=== PATIENT | male | born 1955 | race Caucasian/White ===

== ENCOUNTER 2021-03-04 11:58 | Outpatient (REF) | payer SELFPAY ==
[2021-03-04 14:11] LABS: Hematocrit 41.5 % (42.0-52.0); Hemoglobin 14.2 g/dl (14.0-18.0); Mean Corpuscular HGB Conc 34.2 g/dl (31.0-36.0); Mean Corpuscular Hemoglobin 34.3 pg (27.0-33.0); Mean Corpuscular Volume 100.2 fL (80.0-98.0); Mean Platelet Volume 11.5 fL (9.4-12.4); Platelet Count 134 X10*3/uL (160-400); Red Blood Count 4.14 X10*6/uL (4.60-5.80); White Blood Count 7.9 X10*3/uL (4.8-10.8)
[2021-03-04 14:20] LABS: INTERNATIONAL NORM RATIO 1.2 (0.9-1.1); Prothrombin Time 13.4 SEC (9.9-13.0)
[2021-03-04 14:22] LABS: Partial Thromboplastin Time 33.2 SEC (24.1-38.0)
[2021-03-04 14:27] LABS: Alanine Aminotransferase 25 U/L (0-40); Alkaline Phosphatase 97 U/L (39-117); Aspartate Amino Transferase 64 U/L (5-37); Bilirubin Direct 1.2 mg/dL (0.0-0.5); Cholesterol 94 mg/dL; Estimated Glomerular Filt Rate > 60; Glucose Random 100 mg/dL (60-115); HDL Cholesterol 29 mg/dL; LDL Cholesterol Calculated 53 mg/dl; Triglycerides 64 mg/dL
[2021-03-04 14:47] LABS: Erythrocyte Sedimentation Rate 2 MM/HR (0-15)
[2021-03-04 15:00] LABS: Anion Gap 13 (12-20); Blood Urea Nitrogen 3 mg/dL (9-16); Carbon Dioxide 28 mmol/L (22-29); Chloride 98 mmol/L (96-108); Potassium 2.9 mmol/L (3.3-5.1); Sodium 136 mmol/L (135-145); Total Protein 5.8 g/dL (6.5-8.0)
== END 2021-03-04 11:59 | disposition home or self-care (01) ==
LOC: HO.HMGCLDS 11:58
PROVIDERS: Visit Provider Internal Medicine
DX: K72.90 Hepatic failure, unspecified without coma (principal)
CPT/HCPCS: 36415; 80048; 80061; 80076; 85027; 85610; 85652; 85730

== ENCOUNTER 2021-03-09 14:03 | Inpatient (IN) | payer OTHER, SELFPAY ==
--- NOTE | ~2021-03-09 | CT_ITS ---
EXAMINATION: CT ABDOMEN AND PELVIS WITH CONTRAST CLINICAL INFORMATION: Alcoholic hepatitis with ascites. Question portal vein thrombosis. COMPARISON: None TECHNIQUE: Multidetector volumetric images were obtained from the superior aspect of the liver through the pubic symphysis following administration 85 mL of Omnipaque 350 intravenous contrast. Sagittal and coronal reformatted images were obtained on the technologist's workstation. Oral contrast: No This CT examination was performed using dose optimization techniques as appropriate, variously including the following: *Automated exposure control *Adjustment of mA and/or kV according to patient size (this includes techniques or standardized protocols for targeted exams where dose is matched to indication/reason for exam; i.e. extremities or head) *Use of iterative reconstruction technique DLP: 499 mGy-cm FINDINGS: LUNG BASES: Streaky areas of bibasilar consolidation with air bronchograms, more likely atelectasis than pneumonia. Mild cardiomegaly. Coronary artery calcifications. LIVER, GALLBLADDER, AND BILIARY TREE: The liver is normal in size, shape, and attenuation. No focal hepatic lesion or biliary ductal dilatation is present. The gallbladder is unremarkable with no evidence of radiopaque gallstones, gallbladder wall thickening, or obvious pericholecystic inflammatory changes. Portal veins enhance normally. PANCREAS: Unremarkable. SPLEEN: Unremarkable. ADRENAL GLANDS: Unremarkable. KIDNEYS AND URETERS: The kidneys are normal in size, shape, and attenuation. No hydronephrosis, hydroureter, or calculi seen. No perinephric stranding. BLADDER: Unremarkable. GASTROINTESTINAL TRACT: Stomach and small bowel are nondilated. Normal appendix. Scattered colonic diverticulosis. Moderate stool volume. Tortuous colon. ABDOMINAL WALL: Anasarca. LYMPH NODES: Normal. VASCULAR: Portal veins enhance normally. There is a recanalized paraumbilical vein. There are gastric and splenic varices. There are varices in the anterior abdominal wall. Moderate volume of ascites is seen in all 4 quadrants of the abdomen and dependently in the pelvis. PELVIC VISCERA: The prostate and seminal vesicles are unremarkable. OSSEOUS STRUCTURES: Multilevel degenerative changes of the spine. No acute or suspicious osseous abnormality. Circumferential calcified atherosclerotic changes of the aorta. CT/CT abdomen pelvis w con IMPRESSION: Moderate volume of ascites. Anasarca. Extensive varices suggest portal hypertension. Portal veins enhance normally.
[2021-03-09 14:24] VITALS: BP 147/86; PULSE 95; RESP 20; TEMP 36.8; O2SAT 98; BMI 22.3
[2021-03-09 16:15] LABS: MANUAL DIFF FLAG NO
[2021-03-09 16:18] LABS: Basophils Absolute Auto 0.1 X10*3/uL (0.0-0.2); Basophils Percent Auto 0.6 % (0-2); Eosinophils Absolute Auto 0.1 X10*3/uL (0.0-0.4); Eosinophils Percent Auto 0.9 % (0-4); Hemoglobin 13.8 g/dl (14.0-18.0); Imm Gran Abs Auto 0.02 X10*3/uL (0.00-0.03); Imm Gran Pct Auto 0.3 % (0.0-0.4); Lymphocytes Absolute Auto 1.1 X10*3/uL (1.2-4.9); Lymphocytes Percent Auto 13.9 % (20-40); Mean Corpuscular HGB Conc 33.7 g/dl (31.0-36.0); Mean Corpuscular Hemoglobin 34.5 pg (27.0-33.0); Mean Corpuscular Volume 102.5 fL (80.0-98.0); Monocytes Absolute Auto 0.7 X10*3/uL (0.1-1.2); Neutrophils Percent Auto 75.3 % (45-73); Platelet Count 146 X10*3/uL (160-400); Red Cell Distribution Width 13.2 % (11.0-16.0)
[2021-03-09 16:31] LABS: Alanine Aminotransferase 24 U/L (0-40); Albumin Level 2.9 g/dL (3.5-5.0); Alkaline Phosphatase 96 U/L (39-117); Anion Gap 12 (12-20); Aspartate Amino Transferase 48 U/L (5-37); Blood Urea Nitrogen 5 mg/dL (9-16); Calcium 8.4 mg/dL (8.4-10.2); Carbon Dioxide 30 mmol/L (22-29); Chloride 102 mmol/L (96-108); Creatinine Clr Calc Pharmacy 118.1; Estimated Glomerular Filt Rate > 60; Glucose Random 130 mg/dL (60-115); Lipase 30 U/L (8-78); Potassium 4.8 mmol/L (3.3-5.1); Sodium 139 mmol/L (135-145); Total Protein 5.8 g/dL (6.5-8.0)
--- NOTE | 2021-03-09 19:20 | ED.ABDPAIN ---
HPI - Abdominal Pain General Chief Complaint: Abdominal Pain Stated Complaint: abd pain swelling Time Seen by Provider: 03/09/21 16:59 Source: patient Mode of arrival: ambulatory Limitations: no limitations History of Present Illness HPI narrative: Patient is 65 years old with history of alcohol use, hypertension not taking any medication smoker chronic alcoholic for last 2 months been drinking heavy drinking bicardi for 2 weeks patient noticed abdominal distention with slight discomfort and constipation no nausea no vomiting no diarrhea no fever no chills no shortness of breath patient had last drink 1 week ago. Also noticed bright red blood when moved bowel no vomiting of blood no melena. No confusion mentation is fine, was seen by MD at [facility] today who sent him here for further evaluation for new onset of ascites in background of alcoholic cirrhosis Related Data Home Medications Medication Instructions Recorded Confirmed No Known Home Meds 03/04/21 03/09/21 Allergies Allergy/AdvReac Type Severity Reaction Status Date / Time No Known Allergies Allergy Verified 03/04/21 11:30 [No Known Allergies*] Review of Systems Review of Systems Yes all other systems are reviewed and are negative Physical Exam Vital Signs: Vital Signs: Last Vital Signs Temp 98.2 F 03/09/21 14:24 Pulse 90 03/09/21 22:50 Resp 14 03/09/21 22:26 BP 128/81 03/09/21 22:50 Pulse Ox 98 03/09/21 22:50 Body Mass Index 22.3 Appearance: Alert. Oriented X3. No acute distress. Eyes: No pallor or icterus ENT: Pharynx normal. Oral Mucosa moist Neck: Normal inspection. Neck supple. CVS: Normal heart rate and rhythm. Pulses normal. Respiratory: No respiratory distress. Equal air entry bilateral, no wheezing/rales/rhonchi Abdomen: Distended abdomen, mild diffuse tenderness no rebound tenderness or guarding Bowel sounds are present, no mass palpable, no CVA tenderness Skin: Skin warm and dry. Normal skin color. Normal skin turgor. Extremities: No lower extremity edema. No calf tenderness Neuro: Oriented X 3. No motor deficit. No hepatic flaps Procedures Paracentesis Time Out Performed: Yes Indication: Ascites Procedure: therapeutic paracentesis Location: RLQ Local Anesthetic: lidocaine 2% Amount of anesthesia used (mL): 1 Bedside Ultrasound Used: yes, Ascites confirmed and location marked Preparation: sterile prep and drape Amount of fluid obtained (mL): 3,000 Fluid: clear Size of Needle Used: 7 MDM - Abdominal Pain MDM Narrative Medical decision making narrative: Patient alcoholic came with acute onset of ascites negative for portal vein thrombosis paracentesis done on 3 L of fluid drained negative for SBP will admit patient for further evaluation Lab Data Attestation: I reviewed the patient's lab results. Result diagrams: 03/09/21 16:08 03/09/21 16:08 Labs: Lab Results 03/09/21 03/09/21 03/09/21 Range/Units 16:08 16:08 20:35 WBC 8.0 (4.8-10.8) X10*3/uL RBC 4.00 L (4.60-5.80) X10*6/uL Hgb 13.8 L (14.0-18.0) g/dl Hct 41.0 L (42.0-52.0) % MCV 102.5 H (80.0-98.0) fL MCH 34.5 H (27.0-33.0) pg MCHC 33.7 (31.0-36.0) g/dl RDW 13.2 (11.0-16.0) % Plt Count 146 L (160-400) X10*3/uL MPV 11.0 (9.4-12.4) fL Immature Gran % (Auto) 0.3 (0.0-0.4) % Neut % (Auto) 75.3 H (45-73) % Lymph % (Auto) 13.9 L (20-40) % [place] % (Auto) 9.0 (2-11) % Eos % (Auto) 0.9 (0-4) % Baso % (Auto) 0.6 (0-2) % Lymph # (Auto) 1.1 L (1.2-4.9) X10*3/uL [place] # (Auto) 0.7 (0.1-1.2) X10*3/uL Eos # (Auto) 0.1 (0.0-0.4) X10*3/uL Baso # (Auto) 0.1 (0.0-0.2) X10*3/uL Abs Immat Gran (auto) 0.02 (0.00-0.03) X10*3/uL Absolute Neuts (auto) 6.0 (2.0-8.3) x10*3/uL Absolute Nucleated RBC 0.000 (0.0-0.012) X10*3/uL Nucleated RBC % (auto) 0.0 (0.0-0.2) /100WBC PT 14.0 H (9.9-13.0) SEC INR 1.2 H (0.9-1.1) Sodium 139 (135-145) mmol/L Potassium 4.8 D (3.3-5.1) mmol/L Chloride 102 (96-108) mmol/L Carbon Dioxide 30 H (22-29) mmol/L Anion Gap 12 (12-20) BUN 5 L D (9-16) mg/dL Creatinine 0.62 (0.5-1.4) mg/dL Estim Creat Clear Calc 118.1 Estimated GFR > 60 Random Glucose 130 H (60-115) mg/dL Calcium 8.4 (8.4-10.2) mg/dL Total Bilirubin 1.0 (0.0-1.0) mg/dL AST 48 H (5-37) U/L ALT 24 (0-40) U/L Alkaline Phosphatase 96 (39-117) U/L Ammonia (13-55) umol/L Total Protein 5.8 L (6.5-8.0) g/dL Albumin 2.9 L (3.5-5.0) g/dL Lipase 30 (8-78) U/L Peritoneal WBC X10*3/uL Peritoneal RBC X10*6/uL 03/09/21 03/09/21 Range/Units 20:35 22:10 WBC (4.8-10.8) X10*3/uL RBC (4.60-5.80) X10*6/uL Hgb (14.0-18.0) g/dl Hct (42.0-52.0) % MCV (80.0-98.0) fL MCH (27.0-33.0) pg MCHC (31.0-36.0) g/dl RDW (11.0-16.0) % Plt Count (160-400) X10*3/uL MPV (9.4-12.4) fL Immature Gran % (Auto) (0.0-0.4) % Neut % (Auto) (45-73) % Lymph % (Auto) (20-40) % [place] % (Auto) (2-11) % Eos % (Auto) (0-4) % Baso % (Auto) (0-2) % Lymph # (Auto) (1.2-4.9) X10*3/uL [place] # (Auto) (0.1-1.2) X10*3/uL Eos # (Auto) (0.0-0.4) X10*3/uL Baso # (Auto) (0.0-0.2) X10*3/uL Abs Immat Gran (auto) (0.00-0.03) X10*3/uL Absolute Neuts (auto) (2.0-8.3) x10*3/uL Absolute Nucleated RBC (0.0-0.012) X10*3/uL Nucleated RBC % (auto) (0.0-0.2) /100WBC PT (9.9-13.0) SEC INR (0.9-1.1) Sodium (135-145) mmol/L Potassium (3.3-5.1) mmol/L Chloride (96-108) mmol/L Carbon Dioxide (22-29) mmol/L Anion Gap (12-20) BUN (9-16) mg/dL Creatinine (0.5-1.4) mg/dL Estim Creat Clear Calc Estimated GFR Random Glucose (60-115) mg/dL Calcium (8.4-10.2) mg/dL Total Bilirubin (0.0-1.0) mg/dL AST (5-37) U/L ALT (0-40) U/L Alkaline Phosphatase (39-117) U/L Ammonia 26 (13-55) umol/L Total Protein (6.5-8.0) g/dL Albumin (3.5-5.0) g/dL Lipase (8-78) U/L Peritoneal WBC 0.182 X10*3/uL Peritoneal RBC < 0.002 X10*6/uL Discharge Plan Discharge Clinical Impression: Alcoholic cirrhosis of liver with ascites Patient Disposition: Admitted As Inpatient [facility] Past Medical History Medical History (Updated 03/09/21 @ 23:03 by Ravinder Rivera MD) Alcohol abuse Aortic root dilatation Hypercholesterolemia Hypertension Left ventricular hypertrophy Social History Social History Patient Tobacco Use Status: Current everyday Tobacco user Advance Directives: No
[2021-03-09] MEDS: iohexoL 350 MG/ML 100 ML INFUS..BTL IV (19:51)
[2021-03-09] MEDS: Albumin Human 25 % 100 ML IV ×2 (20:39→21:44)
[2021-03-09 20:48] LABS: INTERNATIONAL NORM RATIO 1.2 (0.9-1.1)
[2021-03-09 20:55] LABS: Ammonia 26 umol/L (13-55)
[2021-03-09 21:32] VITALS: BP 148/91; PULSE 92; RESP 14; O2SAT 94
[2021-03-09] MEDS: Lidocaine HCl 2 % MPF 5 ML VIAL INFILTRATI (21:40)
[2021-03-09 22:26] VITALS: BP 128/81; PULSE 90; RESP 14; O2SAT 96
[2021-03-09 22:28] LABS: MN% 93.1 %; PMN% 6.9 %; WBC Peritoneal Fluid 0.182 X10*3/uL
[2021-03-09 22:39] LABS: RBC Peritoneal Fluid < 0.002 X10*6/uL
--- NOTE | 2021-03-09 22:43 | P.HPHOSP_ITS ---
History of Present Illness Date of Service: 03/09/21 Chief Complaint: Abdominal pain 65-year-old male with no significant past medical history except for alcohol use presented to the hospital with a chief complaint of abdominal pain/discomfort/distention for the past 1 week. Patient reports that he drinks alcohol on a regular basis but last drink was last Tuesday; denies any sense of control; but noted to have abdominal distention which has been gradually worsening denies any associated nausea vomiting or diarrhea. Denies any chest pain palpitations lightheadedness or dizziness. Denies any fever chills cough. Denies any urinary symptoms. Mentions that he feels constipated and he also noted blood in the stool few times. Mentions that his abdominal was gradual increasing size and increasing the pain. Hence presented to the hospital for further evaluation ER course: Noted to have distended abdomen, mildly tender diffusely, CT abdomen showed ascites with normal liver contour; status post diagnostic tap-results pending; admitted to the hospital for further management. [facility] Medical History (Updated 03/09/21 @ 22:44 by Oscar Vilchis MD) Alcohol abuse Aortic root dilatation Hypercholesterolemia Hypertension Left ventricular hypertrophy Pertinent family history: Mother had dementia Father had heart disease Brother had cancer Social History Patient Tobacco Use Status: Current everyday Tobacco user Advance Directives: No Meds Allergies Allergy/AdvReac Type Severity Reaction Status Date / Time No Known Allergies Allergy Verified 03/04/21 11:30 [No Known Allergies*] Home Medications Medication Instructions Recorded Confirmed Last Taken Type No Known Home Meds 03/04/21 03/04/21 Unknown History Physical Exam Vital Signs and Narrative: Vital Signs: Last Vital Signs Temp 98.2 F 03/09/21 14:24 Pulse 90 03/09/21 22:26 Resp 14 03/09/21 22:26 BP 128/81 03/09/21 22:26 Pulse Ox 96 03/09/21 22:26 Body Mass Index 22.3 Gen: Appears be in no acute distress HEENT: NCAT, Moist mucosa. Pulmonary: Vesicular breath sounds, fair air entry CVS: Normal S1-S2 Abdomen: BS+, Soft,Distended, mildly tender diffusely Extremities: Warm well perfused Neuro: Alert and awake. Results Labs CBC and Chem 7: 03/09/21 16:08 03/09/21 16:08 Labs: Laboratory Results - last 24 hr 03/09/21 03/09/21 03/09/21 16:08 16:08 20:35 MCV 102.5 H MCH 34.5 H MCHC 33.7 RDW 13.2 Plt Count 146 L MPV 11.0 Immature Gran % (Auto) 0.3 Neut % (Auto) 75.3 H Lymph % (Auto) 13.9 L [place] % (Auto) 9.0 Eos % (Auto) 0.9 Baso % (Auto) 0.6 Lymph # (Auto) 1.1 L [place] # (Auto) 0.7 Eos # (Auto) 0.1 Baso # (Auto) 0.1 Abs Immat Gran (auto) 0.02 Absolute Neuts (auto) 6.0 Absolute Nucleated RBC 0.000 Nucleated RBC % (auto) 0.0 PT 14.0 H INR 1.2 H Anion Gap 12 Estim Creat Clear Calc 118.1 Estimated GFR > 60 Random Glucose 130 H Calcium 8.4 Total Bilirubin 1.0 AST 48 H ALT 24 Alkaline Phosphatase 96 Ammonia Total Protein 5.8 L Albumin 2.9 L Lipase 30 Peritoneal WBC Peritoneal RBC 03/09/21 03/09/21 20:35 22:10 MCV MCH MCHC RDW Plt Count MPV Immature Gran % (Auto) Neut % (Auto) Lymph % (Auto) [place] % (Auto) Eos % (Auto) Baso % (Auto) Lymph # (Auto) [place] # (Auto) Eos # (Auto) Baso # (Auto) Abs Immat Gran (auto) Absolute Neuts (auto) Absolute Nucleated RBC Nucleated RBC % (auto) PT INR Anion Gap Estim Creat Clear Calc Estimated GFR Random Glucose Calcium Total Bilirubin AST ALT Alkaline Phosphatase Ammonia 26 Total Protein Albumin Lipase Peritoneal WBC 0.182 Peritoneal RBC < 0.002 Imaging Radiologist's Impressions: Impressions Abdomen/Pelvis CT 03/09/21 19:31 IMPRESSION: Moderate volume of ascites. Anasarca. Extensive varices suggest portal hypertension. Portal veins enhance normally. Assessment and Plan (1) Ascites: Status: Acute 65-year-old male with no significant past medical history except for alcohol use presented to the hospital with a chief complaint of abdominal pain/discomfort/distention. Noted to have a new onset ascites. Admitted for further management. New onset ascites: Given history of alcohol abuse-concern for hepatic etiology. But CT abdomen showed normal liver texture and contour. Diagnostic tap has been done in the Er. Pending results. Pain Control Gastroenterology consult further recommendations CT also showed patent portal veins. Blood in the stool: Will send for stool guaiac test IV ppi. Hemoglobin stable. History of alcohol abuse: Last drink was about 8 days ago. Currently denies any signs of Withdrawal. DVT prophylaxis: SCD boots Code status: Full code Quality Stroke Does the patient have a stroke diagnosis?: No VTE Prior VTE?: No VTE Risk Level:: Medical - low VTE Device Contraindication: N/A - Device Ordered VTE Drug Contraindication: Treatment Not Indicated
[2021-03-09 22:50] VITALS: BP 128/81; PULSE 90; O2SAT 98
--- NOTE | 2021-03-09 23:00 | PC.NURSE ---
informed pt he will be staying in the hospital. pt calm and cooperative. denies pain at this time, reports he feels much better after the paracentesis. pt med rec done.
[2021-03-09 23:17] LABS: BF Shift QC OK YES; Basophils Peritoneal Fl 0 %; Eosinophils Peritoneal Fl 0 %; Lymphocyte Peritoneal Fl 19 %; Monocytes Peritoneal Fl 48 %; Neutrophils Peritoneal Fluid 5 %; Other Peritioneal Fl 28 %
[2021-03-09 23:41] LABS: COVID-19 Test Negative (Negative)
[2021-03-10] VITALS (9 sets, daily range): BP systolic 105–134; BP diastolic 56–76; PULSE 79–88; RESP 14–18; TEMP 36.8–37.2; O2SAT 94–98
[2021-03-10] MEDS: 0.9 % Sodium Chloride Flush 3 ML SYRINGE IVFLUSH ×2 (00:48→08:22)
[2021-03-10] MEDS: Melatonin 3 MG TABLET 6 MG PO ×2 (00:48→22:04)
[2021-03-10] MEDS: Pantoprazole Sodium 40 MG/10 ML VIAL IVPUSH (05:59)
[2021-03-10 06:46] LABS: Basophils Percent Auto 0.9 % (0-2); Hemoglobin 11.1 g/dl (14.0-18.0); Imm Gran Abs Auto 0.01 X10*3/uL (0.00-0.03); Imm Gran Pct Auto 0.2 % (0.0-0.4); MANUAL DIFF FLAG SCAN; Mean Corpuscular Hemoglobin 33.9 pg (27.0-33.0); Monocytes Absolute Auto 0.5 X10*3/uL (0.1-1.2); Neutrophils Percent Auto 63.7 % (45-73); PLT CLUMP 1; Red Blood Count 3.27 X10*6/uL (4.60-5.80); Red Cell Distribution Width 12.9 % (11.0-16.0); SCAN SMEAR FLAG 1
[2021-03-10 06:47] LABS: Eosinophils Absolute Auto 0.1 X10*3/uL (0.0-0.4); Eosinophils Percent Auto 2.3 % (0-4); Hematocrit 32.7 % (42.0-52.0); Lymphocytes Absolute Auto 0.9 X10*3/uL (1.2-4.9); Lymphocytes Percent Auto 20.3 % (20-40); Mean Corpuscular HGB Conc 33.9 g/dl (31.0-36.0); Mean Platelet Volume 10.8 fL (9.4-12.4); Monocytes Percent Auto 12.6 % (2-11); Neutrophils Absolute Auto 2.7 x10*3/uL (2.0-8.3); Platelet Count 104 X10*3/uL (160-400); White Blood Count 4.3 X10*3/uL (4.8-10.8)
[2021-03-10 06:54] LABS: SLIDE REVIEW VERIFIED
--- NOTE | 2021-03-10 07:15 | PM.GICN ---
History of Present Illness Data of Consult Service Date: 03/10/21 Requesting physician: Serenity Lundy Primary Care Provider: Adelaide Cotto MD HPI Reason for consult: cirrhosis, ascites 65-year-old male who I am seeing for assessment of newly diagnosed decompensated cirhosis, with ascites Patient has been using alcohol on daily basis for most of his life with 8-9 beers daily, upgraded to bicardi last few months. Last 1-2 weeks noted ankle and leg swelling then progressively worsening abdominal distention and discomfort which made hims feel SOB. He denies fever, cough, sputum, but admits to several episodes of fresh blood FL and darker stool as well which he attributes to hemorrhoids. Denies nsaid use. Denies hx of hep b or c or drug use. had colonoscopy 15 yrs per his report at [facility] and was normal. Ascitic tap neg for SBP. SAAG >1.1 comaptible with portal HTN labs with down trending hgb, mild elevated LFT< raised MCV, low BUN imaging with cirrhosis, ascites and varices, portal htn Right now he feels much better s/p paracentesis, only some discomfort at site of tap Review of Systems Review of Systems: Constitutional : No Weight loss, No Fever, No Chills ENT/Mouth : No sore throat, No Rhinorrhea Eyes: No Swelling, No Redness Cardiovascular : No Chest Pain, No SOB, No Edema Respiratory : No Cough, No Sputum, No Wheezing Gastrointestinal : see HPI Genitourinary : NO Dysuria, No Urinary Frequency, No Hematuria, No Urgency Musculoskeletal : No joint pain, No Myalgias, No Joint Swelling Skin : No Skin Lesions, No rash Neuro : No Weakness, No Numbness, No Dizziness, No Headache Psych : No Anxiety/Panic, No Depression Heme/Lymph: No Bruising, No Lymphadenopathy Endocrine : No Polyuria, No Polydipsia All other systems reviewed and are negative. Yes all other systems are reviewed and are negative [facility] Past Medical History Medical History (Updated 03/09/21 @ 23:03 by Ravinder Rivera MD) Alcohol abuse Aortic root dilatation Hypercholesterolemia Hypertension Left ventricular hypertrophy Family History Pertinent family history: Mother had dementia Father had heart disease Brother had cancer Social History Social History Alcohol intake: current Alcohol intake frequency: 3 or more drinks per day Alcohol type: beer and hard liquor Patient Tobacco Use Status: Current everyday Tobacco user Use of substances other than those prescribed or required for medical reasons: No Advance Directives: No service: Yes Current occupational status: retired Meds Allergies Allergy/AdvReac Type Severity Reaction Status Date / Time No Known Allergies Allergy Verified 03/04/21 11:30 [No Known Allergies*] Active Medications: Current Medications Melatonin (Melatonin 3 Mg Tablet) 6 mg PO BEDTIME PRN PRN Reason: Insomnia Last Admin: 03/10/21 00:48 Dose: 6 mg Documented by: Oxycodone HCl (Oxycodone Hcl Immed Release 5 Mg Tablet) 5 mg PO Q6H PRN PRN Reason: Pain, Severe (Pain Scale 7-10) Pantoprazole Sodium (Pantoprazole Sodium 40 Mg/10 Ml Vial) 40 mg IVPUSH DAILY@0630 [facility] Last Admin: 03/10/21 05:59 Dose: 40 mg Documented by: Senna (Sennosides 8.6 Mg Tablet) 17.2 mg PO BEDTIME PRN PRN Reason: Constipation Sodium Chloride (0.9 % Sodium Chloride Flush 3 Ml Syringe) 3 ml IVFLUSH QSHIFT [facility] Last Admin: 03/10/21 00:48 Dose: 3 ml Documented by: Home Medications Medication Instructions Recorded Confirmed Last Taken Type No Known Home Meds 03/04/21 03/09/21 Unknown History Physical Exam Vital Signs: Vital Signs: Last Vital Signs Temp 98.2 F 03/09/21 14:24 Pulse 87 03/10/21 05:47 Resp 15 03/10/21 05:47 BP 115/58 L 03/10/21 05:47 Pulse Ox 96 03/10/21 05:47 Body Mass Index 22.3 EXAM: GENERAL: The patient is well developed and nontoxic. VITAL SIGNS:see workflow HEENT: Nonicteric sclerae, PERRLA, EOMI. Oropharynx clear. Moist mucous membranes. Conjunctivae appear well perfused. No thyroid mass. CHEST: Chest wall is nontender. HEART: Regular rate and rhythm without murmurs. LUNGS: Clear to auscultation bilaterally. ABDOMEN: Soft, positive bowel sounds, nontender, no organomegaly.no flank tenderness SKIN: spider naevi noted NEUROLOGIC: Cranial nerves II-XII intact without motor/sensory deficit. No tremor psych- appropriate affect MS- nml movement Extrem: General: Yes edema Results Labs CBC & Chem 7: 03/10/21 06:32 03/10/21 06:32 Labs: Short CBC 03/09/21 03/10/21 Range/Units 16:08 06:32 WBC 8.0 4.3 L (4.8-10.8) X10*3/uL Hgb 13.8 L 11.1 L (14.0-18.0) g/dl Hct 41.0 L 32.7 L D (42.0-52.0) % Plt Count 146 L 104 L D (160-400) X10*3/uL BMP 03/09/21 16:08 Sodium 139 Potassium 4.8 D Chloride 102 Carbon Dioxide 30 H BUN 5 L D Creatinine 0.62 Calcium 8.4 Liver Function 03/09/21 Range/Units 16:08 Total Bilirubin 1.0 (0.0-1.0) mg/dL AST 48 H (5-37) U/L ALT 24 (0-40) U/L Alkaline Phosphatase 96 (39-117) U/L Albumin 2.9 L (3.5-5.0) g/dL Assessment and Plan (1) Alcoholic cirrhosis of liver with ascites: Status: Acute 1/ Decompensated cirrhosis with ascites likely primarily from alcohol abuse over the years, s/p tap with impovement 2/ Ascites, SAAG >1.1 related to portal HTN, no PVT on imaging 3/ Anemia with overt GI bleeding, could be hemorrhoidal as suggested by patient but given varices seen on imaging need to exclude this 4/ alcohol abuse 5/ malnutrition from catabolic state 2/2 liver disease and poor diet, alcoholism PLAN: 1/ ok to add lose dose aldactone 25 mg and assess response, low salt diet < 2 g daily 2/ EGD and sigmoidoscopy tomorrow to eval for anemia and blood loss, 3/ multivitamin and high protein diet .1.1 g/kg/day protein 4/ cont to monitor HGB and overt GI blood loss, resus as needed if HGB <7 then transfuse 5/ check viral hep serologies and other labs to exclude secondary casues of cirrhosis 6/ hold ABX for SBP prophylaxis for the moment and octreotide, unless clearly demonstrates melena or upper GI lbeed Procedures Date of Service Date of Service: 03/10/21
[2021-03-10 07:33] LABS: Blood Urea Nitrogen 4 mg/dL (9-16); Creatinine Clr Calc Pharmacy 140.8; Estimated Glomerular Filt Rate > 60; Glucose Random 87 mg/dL (60-115)
[2021-03-10 07:58] LABS: Albumin Peritoneal Fluid 0.6
[2021-03-10 08:15] LABS: Anion Gap 6 (12-20); Calcium 7.6 mg/dL (8.4-10.2); Carbon Dioxide 31 mmol/L (22-29); Chloride 103 mmol/L (96-108); Potassium 3.4 mmol/L (3.3-5.1); Sodium 137 mmol/L (135-145)
--- NOTE | 2021-03-10 08:52 | PC.NURSE ---
pt's sister (rose naranjo [phone]) called [facility] and was updated on pt's status
--- NOTE | 2021-03-10 10:44 | MHC.CM.PN ---
pt lives c his elderly mother in her home for whom he cares for. he is independent in his care, does not use any AD c ambulation. he drives a car and cares for his mother. his sister lives in the area and also cares for the mother, sister [place] be [place]. pt reports that he drank alchohol up until last tuesday when he quit. pt would benefit from a care team consult if it hasn't already occurred. pt denies the need for any vna at [place]. [place] plan is home no svcs. cm to cont. to happen.
--- NOTE | 2021-03-10 12:23 | PC.NURSE ---
pt refused pain med at this time. aware.
--- NOTE | 2021-03-10 15:22 | P.PNIM_ITS ---
Subjective Subjective Date of Service: 03/10/21 Interval History: F/u on symptomatic ascietes, s/p tap and feeling better, Review of Systems no abd pain, no fever Physical Exam Vital Signs: Vital Signs: Last Vital Signs Temp 98.2 F 03/10/21 14:47 Pulse 80 03/10/21 14:47 Resp 14 03/10/21 14:47 BP 120/71 03/10/21 14:47 Pulse Ox 94 03/10/21 14:47 Body Mass Index 22.3 Const: Other: General: AO X 3, no acute distress Resp: CTA bilateral CVS: S1,S2,RRR GI: +BS, NT, mild distention, no pain Skin: No rash Neuro: motor grossly intact Psych: appropriate affect Objective Data Active Medications Melatonin (Melatonin 3 Mg Tablet) 6 mg PO BEDTIME PRN PRN Reason: Insomnia Last Admin: 03/10/21 00:48 Dose: 6 mg Documented by: SHEY Oxycodone HCl (Oxycodone Hcl Immed Release 5 Mg Tablet) 5 mg PO Q6H PRN PRN Reason: Pain, Severe (Pain Scale 7-10) Pantoprazole Sodium (Pantoprazole Sodium 40 Mg/10 Ml Vial) 40 mg IVPUSH DAILY@0630 [facility] Last Admin: 03/10/21 05:59 Dose: 40 mg Documented by: KIMBERLY Senna (Sennosides 8.6 Mg Tablet) 17.2 mg PO BEDTIME PRN PRN Reason: Constipation Sodium Chloride (0.9 % Sodium Chloride Flush 3 Ml Syringe) 3 ml IVFLUSH QSHIFT [facility] Last Admin: 03/10/21 08:22 Dose: 3 ml Documented by: PRATIK Labs CBC & Chem 7: 03/10/21 06:32 03/10/21 06:32 Labs: Laboratory Results - last 24 hr 03/09/21 03/09/21 03/09/21 16:08 16:08 20:35 MCV 102.5 H MCH 34.5 H MCHC 33.7 RDW 13.2 Plt Count 146 L MPV 11.0 Immature Gran % (Auto) 0.3 Neut % (Auto) 75.3 H Lymph % (Auto) 13.9 L [place] % (Auto) 9.0 Eos % (Auto) 0.9 Baso % (Auto) 0.6 Lymph # (Auto) 1.1 L [place] # (Auto) 0.7 Eos # (Auto) 0.1 Baso # (Auto) 0.1 Abs Immat Gran (auto) 0.02 Absolute Neuts (auto) 6.0 Absolute Nucleated RBC 0.000 Nucleated RBC % (auto) 0.0 Smear Tech's Comments PT 14.0 H INR 1.2 H Anion Gap 12 Estim Creat Clear Calc 118.1 Estimated GFR > 60 Random Glucose 130 H Calcium 8.4 Total Bilirubin 1.0 AST 48 H ALT 24 Alkaline Phosphatase 96 Ammonia Total Protein 5.8 L Albumin 2.9 L Lipase 30 Peritoneal WBC Peritoneal RBC Periton Neutrophils Periton Lymphocytes Peritoneal Monocytes Peritoneal Eosinophils Peritoneal Basophils Peritoneal Other Cells Peritoneal Albumin COVID-19 ([facility]) [employer] 03/09/21 03/09/21 03/09/21 20:35 22:10 22:10 MCV MCH MCHC RDW Plt Count MPV Immature Gran % (Auto) Neut % (Auto) Lymph % (Auto) [place] % (Auto) Eos % (Auto) Baso % (Auto) Lymph # (Auto) [place] # (Auto) Eos # (Auto) Baso # (Auto) Abs Immat Gran (auto) Absolute Neuts (auto) Absolute Nucleated RBC Nucleated RBC % (auto) Smear Tech's Comments PT INR Anion Gap Estim Creat Clear Calc Estimated GFR Random Glucose Calcium Total Bilirubin AST ALT Alkaline Phosphatase Ammonia 26 Total Protein Albumin Lipase Peritoneal WBC 0.182 Peritoneal RBC < 0.002 Periton Neutrophils 5 Periton Lymphocytes 19 Peritoneal Monocytes 48 Peritoneal Eosinophils 0 Peritoneal Basophils 0 Peritoneal Other Cells 28 Peritoneal Albumin 0.6 COVID-19 ([facility]) COVID-19 [employer] 03/09/21 03/10/21 03/10/21 23:22 06:32 06:32 MCV 100.0 H MCH 33.9 H MCHC 33.9 RDW 12.9 Plt Count 104 L D MPV 10.8 Immature Gran % (Auto) 0.2 Neut % (Auto) 63.7 Lymph % (Auto) 20.3 [place] % (Auto) 12.6 H Eos % (Auto) 2.3 Baso % (Auto) 0.9 Lymph # (Auto) 0.9 L [place] # (Auto) 0.5 Eos # (Auto) 0.1 Baso # (Auto) 0.0 Abs Immat Gran (auto) 0.01 Absolute Neuts (auto) 2.7 Absolute Nucleated RBC 0.000 Nucleated RBC % (auto) 0.0 Smear Tech's Comments VERIFIED PT INR Anion Gap 6 L Estim Creat Clear Calc 140.8 Estimated GFR > 60 Random Glucose 87 Calcium 7.6 L D Total Bilirubin AST ALT Alkaline Phosphatase Ammonia Total Protein Albumin Lipase Peritoneal WBC Peritoneal RBC Periton Neutrophils Periton Lymphocytes Peritoneal Monocytes Peritoneal Eosinophils Peritoneal Basophils Peritoneal Other Cells Peritoneal Albumin COVID-19 ([facility]) Negative COVID-19 Clin Com See Note Microbiology Microbiology Results: Microbiology 03/09/21 22:10 Gram Stain - Final Peritoneal Fluid Routine Culture - Preliminary No growth to date. Anaerobic Culture - Preliminary No growth to date. Assessment and Plan (1) Alcoholic cirrhosis of liver with ascites: Status: Acute (2) Ascites: Status: Acute (3) Liver failure: Status: Acute Assessment and Plan: 65-year-old male with no significant past medical history except for alcohol use presented to the hospital with a chief complaint of abdominal pain/discomfor t/distention. Noted to have a new onset ascites.? Admitted for further management. New onset ascites:?likely related to alcoholic liver disease s/p diagnostic paracentesis last night Pathology result pending see by GI, will start on diuretics GIB--no active bleed, anemia is likely chronic and not acute blood loss type avoid nsaid GI will do EGD/colo tomorrow PPI History of alcohol abuse:? Last drink was about 8 days ago.? Currently denies any signs of Withdrawal. DVT prophylaxis:? SCD boots Code status:? Full code Quality Stroke Does the patient have a stroke diagnosis?: No VTE Prior VTE?: No VTE Risk Level:: Medical - low VTE Device Contraindication: N/A - Device Ordered VTE Drug Contraindication: Treatment Not Indicated
[2021-03-10 21:12] LABS: Ferritin 599 ng/mL (20-250)
[2021-03-10 21:24] LABS: Gamma Glutamyl Transpeptidase 119 U/L (11-51)
--- NOTE | 2021-03-10 23:55 | PC.NURSE ---
Report called to erik RN, pt transported to floor via [employer] EDT, sent in stable condition w/ all belongings
[2021-03-11] VITALS (11 sets, daily range): BP systolic 86–136; BP diastolic 42–78; PULSE 63–95; RESP 14–18; TEMP 36.2–37.2; O2SAT 93–100
[2021-03-11] MEDS: 0.9 % Sodium Chloride Flush 3 ML SYRINGE IVFLUSH ×3 (01:18→22:01)
[2021-03-11] MEDS: Pantoprazole Sodium 40 MG/10 ML VIAL IVPUSH (06:04)
[2021-03-11 09:08] LABS: Folate 7.2 ng/mL (> or = 4.0); Vitamin B12 795 pg/mL (200-900)
[2021-03-11 09:36] LABS: HBS Num1 0.59 mIU/mL (0-7.99); HBsAGNum1 0.36 S/CO (0.00-0.99); Hepatitis B Surface Antigen Negative (Negative); ~HepC Num1 0.08 S/CO (0.00-0.79); ~Hepatitis A Antibody IgM Nonreactive (Nonreactive); ~Hepatitis B Surface Antibody NONREACTIVE (Nonreactive); ~Hepatitis C Antibody Nonreactive (Nonreactive)
[2021-03-11] MEDS: Furosemide 20 MG TABLET PO (09:39)
[2021-03-11] MEDS: Spironolactone 25 MG TABLET PO (09:39)
[2021-03-11 09:45] LABS: HBc Num1 0.08 S/CO (0.00-0.79); Hepatitis B Core Antibody Nonreactive (Nonreactive)
--- NOTE | 2021-03-11 11:37 | P.PNIM_ITS ---
Subjective Subjective Date of Service: 03/11/21 Interval History: F/u on symptomatic ascietes, feels better, no gib Review of Systems no abd pain, no fever Physical Exam Vital Signs: Vital Signs: Last Vital Signs Temp 98.5 F 03/11/21 07:34 Pulse 85 03/11/21 07:34 Resp 16 03/11/21 07:34 BP 127/72 03/11/21 07:34 Pulse Ox 93 03/11/21 07:34 Body Mass Index 22.3 Const: Other: General: AO X 3, no acute distress Resp: CTA bilateral CVS: S1,S2,RRR GI: +BS, NT, mild distention, no pain Skin: No rash Neuro: motor grossly intact Psych: appropriate affect Objective Data Active Medications Furosemide (Furosemide 20 Mg Tablet) 20 mg PO DAILY [facility]; Protocol Last Admin: 03/11/21 09:39 Dose: 20 mg Documented by: JOSE E Melatonin (Melatonin 3 Mg Tablet) 6 mg PO BEDTIME PRN PRN Reason: Insomnia Last Admin: 03/10/21 22:04 Dose: 6 mg Documented by: TITI Oxycodone HCl (Oxycodone Hcl Immed Release 5 Mg Tablet) 5 mg PO Q6H PRN PRN Reason: Pain, Severe (Pain Scale 7-10) Pantoprazole Sodium (Pantoprazole Sodium 40 Mg/10 Ml Vial) 40 mg IVPUSH DAILY@0630 [facility] Last Admin: 03/11/21 06:04 Dose: 40 mg Documented by: NOE Senna (Sennosides 8.6 Mg Tablet) 17.2 mg PO BEDTIME PRN PRN Reason: Constipation Sodium Chloride (0.9 % Sodium Chloride Flush 3 Ml Syringe) 3 ml IVFLUSH QSHIFT [facility] Last Admin: 03/11/21 07:33 Dose: 3 ml Documented by: JOSE E Spironolactone (Spironolactone 25 Mg Tablet) 25 mg PO DAILY [facility]; Protocol Last Admin: 03/11/21 09:39 Dose: 25 mg Documented by: JOSE E Labs CBC & Chem 7: 03/10/21 06:32 03/10/21 06:32 Labs: Laboratory Results - last 24 hr 03/10/21 03/10/21 03/10/21 20:28 20:28 20:28 Ferritin 599 H GGT 119 H Vitamin B12 Folate Hepatitis A IgM Ab Nonreactive Hep Bs Antigen Negative Hep Bs Antibody NONREACTIVE Hep B Core Total Ab Nonreactive Hepatitis C Ab (EIA) Nonreactive 03/10/21 20:28 Ferritin GGT Vitamin B12 795 Folate 7.2 Hepatitis A IgM Ab Hep Bs Antigen Hep Bs Antibody Hep B Core Total Ab Hepatitis C Ab (EIA) Microbiology Microbiology Results: Microbiology 03/09/21 22:10 Gram Stain - Final Peritoneal Fluid Routine Culture - Preliminary No growth to date. Anaerobic Culture - Preliminary No growth to date. Assessment and Plan (1) Alcoholic cirrhosis of liver with ascites: Status: Acute (2) Ascites: Status: Acute Assessment and Plan: 65-year-old male with no significant past medical history except for alcohol use presented to the hospital with a chief complaint of abdominal pain/discomfort/distention. Noted to have a new onset ascites.? Admitted for further management. New onset ascites:?likely related to alcoholic liver disease s/p diagnostic paracentesis last night Pathology result pending seen by GI, will start on diuretics (aldactone and lasix) GIB--no active bleed, anemia is likely chronic and not acute blood loss type avoid nsaid GI will do EGD/colo today PPI History of alcohol abuse:? Last drink was about 8 days ago.? Currently denies any signs of Withdrawal. DVT prophylaxis:? SCD boots Code status:? Full code Quality Stroke Does the patient have a stroke diagnosis?: No VTE Prior VTE?: No VTE Risk Level:: Medical - low VTE Device Contraindication: N/A - Device Ordered VTE Drug Contraindication: Treatment Not Indicated
--- NOTE | 2021-03-11 13:08 | MHC.CLN ---
NUTRITION CONSULT FOR WEIGHT LOSS PATIENT REPORTS 20# WEIGHT LOSS X 1 YEAR, -11.7%. ATTRIBUTED WEIGHT LOSS TO CHANGE OF LIFESTYLE WITH SENIOR CARE AND THAT EATING LESS. DRINKS ENSURE AT HOME AND WOULD LIKE HERE. CURRENT DIET IS NPO. HISTORY OF ALCOHOL ABUSE AND NEW ONSET ASCITES LIKELY CONTRIBUTORS TO WEIGHT VARIANCE. NO PRIOR WEIGHTS VIEWED FOR COMPARISON. ADD ENSURE BID (700 KCAL, 32-40 G PROTEIN) APPROPRIATE WITH DIET UPGRADE.
--- NOTE | 2021-03-11 13:27 | P.BOP_ITS ---
Brief Operative Note Date of Service: 03/11/21 Pre-op diagnosis: anemia, and rectal bleeding Post-op diagnosis: same Procedure: see op note Surgeon: Lia Ruiz MD Anesthesia: MAC Was an Behavioral Health Consultant used for this Procedure?: No Estimated blood loss (mL): 0 Condition: stable Disposition: PACU
--- NOTE | 2021-03-11 13:27 | MHC.SHP ---
Pre-Procedural Eval Section A Date of Service: 03/11/21 The patient is an INPATIENT: Yes The History & Physical has been completed within 30 days and I have reviewed it.: Yes Section B Chief Complaint: New ascites Allergies: Allergies Allergy/AdvReac Type Severity Reaction Status Date / Time No Known Allergies Allergy Verified 03/04/21 11:30 [No Known Allergies*] Plan Diagnosis/Plan: Unchanged I have reviewed the history and physical and performed a pertinent physical examination on my patient. No changes have occurred unless specified.
--- NOTE | 2021-03-11 13:28 | W.PM.OPN ---
Operative Note Operative Note Date of Service: 03/11/21 Narrative: Procedure Description: EGD, sigmoidoscopy FLEXIBLE TRANSORAL UPPER GASTROINTESTINAL ENDOSCOPY and sigmoidoscopy UPPER ENDOSCOPY Consent: Indications for the procedure and potential complications of bleeding, perforation, reaction to medications and missed diagnosis were discussed with the patient and informed consent was obtained. Instrument: Olympus GIF H 190 J mid size upper endoscope Monitoring: Vital signs and clinical assessment, continuous EKG monitoring, Pulse oximetry, Carbon Dioxide monitoring and blood pressure monitoring were done throughout the procedure. Procedure: The patient was placed in the left lateral decubitis position and pre-procedure medications were administered and a bite block was placed. The endoscope was inserted into the mouth and advanced under direct vision to the third part of duodenum. A careful inspection was made as the upper endoscope was withdrawn including a retroflexed examination of the proximal stomach; Findings and interventions are described below. Findings: Larynx:normal Esophagus: GE junction at 39 cm, diaphragm hiatus at 41 cm, consistent with 2 cm sliding hiatal hernia, mild esophagitis noted, with islands of salmon pink mucosa, suggestive of barretts, WATS 3 D brushings taken. Stomach: Patchy gastric erythema with mosaic pattern consistent with portal hypertensive gastropathy. Grade 2 flap valve on retroflexed examination of the cardia. No gastric varices seen Duodenum: Normal bulb and descending duodenum, Intervention: brushings for WATS Patient was then turned for sigmoidoscopy External hemorrhoid noted, retroflexion with mdoerate sized internal hemorrhoids, grade II, Scope passed to transverse colon and no blood or masses seen, normal appearing stool seen, no blood. Impression/Findings: external and internal hemorrhoids possible barretts portal hypertensive gastropathy gastritis, likely alcohol related PLAN: repeat EGD in 1-2 yrs for variceal screening can commence low dose PPI high fiber diet anusol prn, surgical referral if worsening rectal bleeding
--- NOTE | 2021-03-11 13:29 | P.CONAN_ITS ---
HPI - Anesthesia Eval Consult details Narrative: 65yo male patient for EGD, flexible sigmoidoscopy [facility] Active Problems Active Problems: All Active Problems (Updated 03/09/21 @ 23:03 by Ravinder Rivera MD) Alcoholic cirrhosis of liver with ascites (Acute) Ascites (Acute) Liver failure (Acute) Past Medical History Medical History (Updated 03/09/21 @ 23:03 by Ravinder Rivera MD) Alcohol abuse Aortic root dilatation Hypercholesterolemia Hypertension Left ventricular hypertrophy Family History Family history of problems with anesthesia: No Surgical History History of Problems with Anesthesia: No Social History Social History (Updated 03/11/21 @ 13:37 by Estefania Eduardo MD) Household Members: Family Housing: House Do you presently have visiting nurse or other home services: No Alcohol intake: current Alcohol intake frequency: 3 or more drinks per day Alcohol type: beer and hard liquor Patient Tobacco Use Status: Current everyday Tobacco user Tobacco use type: Cigarette Cigarettes Per Day: 10 Years Smoked: 40 Smoked in Last 30 Days: Yes Second Hand Smoke Exposure: No Substance Use Type: Marijuana service: Yes Current occupational status: retired [employer] Allergies Allergy/AdvReac Type Severity Reaction Status Date / Time No Known Allergies Allergy Verified 03/04/21 11:30 [No Known Allergies*] Active Medications: Current Medications Furosemide (Furosemide 20 Mg Tablet) 20 mg PO DAILY [facility]; Protocol Last Admin: 03/11/21 09:39 Dose: 20 mg Documented by: Melatonin (Melatonin 3 Mg Tablet) 6 mg PO BEDTIME PRN PRN Reason: Insomnia Last Admin: 03/10/21 22:04 Dose: 6 mg Documented by: Oxycodone HCl (Oxycodone Hcl Immed Release 5 Mg Tablet) 5 mg PO Q6H PRN PRN Reason: Pain, Severe (Pain Scale 7-10) Pantoprazole Sodium (Pantoprazole Sodium 40 Mg/10 Ml Vial) 40 mg IVPUSH DAILY@0630 [facility] Last Admin: 03/11/21 06:04 Dose: 40 mg Documented by: Senna (Sennosides 8.6 Mg Tablet) 17.2 mg PO BEDTIME PRN PRN Reason: Constipation Sodium Biphosphate/Sodium Phosphate (Sodium Phosphate,[place]-Dibasic 133 Ml Enema) 133 ml OR ONCE PRN PRN Reason: Consult order Sodium Biphosphate/Sodium Phosphate (Sodium Phosphate,[place]-Dibasic 133 Ml Enema) 133 ml OR ONCE PRN PRN Reason: Consult order Sodium Chloride (0.9 % Sodium Chloride Flush 3 Ml Syringe) 3 ml IVFLUSH QSHIFT [facility] Last Admin: 03/11/21 07:33 Dose: 3 ml Documented by: Spironolactone (Spironolactone 25 Mg Tablet) 25 mg PO DAILY [facility]; Protocol Last Admin: 03/11/21 09:39 Dose: 25 mg Documented by: Home Medications Medication Instructions Recorded Confirmed Last Taken Type No Known Home Meds 03/04/21 03/09/21 Unknown History Exam Exam Date and Time: March 11, 2021 1329 Height,Weight and Vital Signs: Height 5 ft 9 in Weight 68.492 kg Last Vital Signs Temp 98.5 F 03/11/21 07:34 Pulse 85 03/11/21 07:34 Resp 16 03/11/21 07:34 BP 127/72 03/11/21 07:34 Pulse Ox 93 03/11/21 07:34 Vital Signs Temp Pulse Resp BP Pulse Ox 03/11/21 13:17 97.8 F 95 16 135/78 95 03/11/21 07:34 98.5 F 85 16 127/72 93 03/11/21 03:37 98 F 68 18 136/71 93 03/11/21 00:00 97.3 F 71 18 121/64 95 03/10/21 20:40 83 18 105/69 96 03/10/21 14:47 98.2 F 80 14 120/71 94 03/10/21 14:22 88 14 129/72 Pertinent Lab Results Pertinent Lab Results: Laboratory Tests 03/09/21 03/09/21 03/09/21 16:08 16:08 20:35 WBC 8.0 RBC 4.00 L Hgb 13.8 L Hct 41.0 L MCV 102.5 H MCH 34.5 H MCHC 33.7 RDW 13.2 Plt Count 146 L MPV 11.0 Immature Gran % (Auto) 0.3 Neut % (Auto) 75.3 H Lymph % (Auto) 13.9 L [place] % (Auto) 9.0 Eos % (Auto) 0.9 Baso % (Auto) 0.6 Lymph # (Auto) 1.1 L [place] # (Auto) 0.7 Eos # (Auto) 0.1 Baso # (Auto) 0.1 Abs Immat Gran (auto) 0.02 Absolute Neuts (auto) 6.0 Absolute Nucleated RBC 0.000 Nucleated RBC % (auto) 0.0 Smear Tech's Comments PT 14.0 H INR 1.2 H Sodium 139 Potassium 4.8 D Chloride 102 Carbon Dioxide 30 H Anion Gap 12 BUN 5 L D Creatinine 0.62 Estim Creat Clear Calc 118.1 Estimated GFR > 60 Random Glucose 130 H Calcium 8.4 Ferritin Total Bilirubin 1.0 GGT AST 48 H ALT 24 Alkaline Phosphatase 96 Ammonia Total Protein 5.8 L Albumin 2.9 L Lipase 30 Vitamin B12 Folate Peritoneal WBC Peritoneal RBC Periton Neutrophils Periton Lymphocytes Peritoneal Monocytes Peritoneal Eosinophils Peritoneal Basophils Peritoneal Other Cells Peritoneal Albumin COVID-19 ([facility]) COVID-19 Clin Com Hepatitis A IgM Ab Hep Bs Antigen Hep Bs Antibody Hep B Core Total Ab Hepatitis C Ab (EIA) 03/09/21 03/09/21 03/09/21 20:35 22:10 22:10 WBC RBC Hgb Hct MCV MCH MCHC RDW Plt Count MPV Immature Gran % (Auto) Neut % (Auto) Lymph % (Auto) [place] % (Auto) Eos % (Auto) Baso % (Auto) Lymph # (Auto) [place] # (Auto) Eos # (Auto) Baso # (Auto) Abs Immat Gran (auto) Absolute Neuts (auto) Absolute Nucleated RBC Nucleated RBC % (auto) Smear Tech's Comments PT INR Sodium Potassium Chloride Carbon Dioxide Anion Gap BUN Creatinine Estim Creat Clear Calc Estimated GFR Random Glucose Calcium Ferritin Total Bilirubin GGT AST ALT Alkaline Phosphatase Ammonia 26 Total Protein Albumin Lipase Vitamin B12 Folate Peritoneal WBC 0.182 Peritoneal RBC < 0.002 Periton Neutrophils 5 Periton Lymphocytes 19 Peritoneal Monocytes 48 Peritoneal Eosinophils 0 Peritoneal Basophils 0 Peritoneal Other Cells 28 Peritoneal Albumin 0.6 COVID-19 ([facility]) COVID-19 Clin Com Hepatitis A IgM Ab Hep Bs Antigen Hep Bs Antibody Hep B Core Total Ab Hepatitis C Ab (EIA) 03/09/21 03/10/21 03/10/21 23:22 06:32 06:32 WBC 4.3 L RBC 3.27 L Hgb 11.1 L Hct 32.7 L D MCV 100.0 H MCH 33.9 H MCHC 33.9 RDW 12.9 Plt Count 104 L D MPV 10.8 Immature Gran % (Auto) 0.2 Neut % (Auto) 63.7 Lymph % (Auto) 20.3 [place] % (Auto) 12.6 H Eos % (Auto) 2.3 Baso % (Auto) 0.9 Lymph # (Auto) 0.9 L [place] # (Auto) 0.5 Eos # (Auto) 0.1 Baso # (Auto) 0.0 Abs Immat Gran (auto) 0.01 Absolute Neuts (auto) 2.7 Absolute Nucleated RBC 0.000 Nucleated RBC % (auto) 0.0 Smear Tech's Comments VERIFIED PT INR Sodium 137 Potassium 3.4 D Chloride 103 Carbon Dioxide 31 H Anion Gap 6 L BUN 4 L Creatinine 0.52 Estim Creat Clear Calc 140.8 Estimated GFR > 60 Random Glucose 87 Calcium 7.6 L D Ferritin Total Bilirubin GGT AST ALT Alkaline Phosphatase Ammonia Total Protein Albumin Lipase Vitamin B12 Folate Peritoneal WBC Peritoneal RBC Periton Neutrophils Periton Lymphocytes Peritoneal Monocytes Peritoneal Eosinophils Peritoneal Basophils Peritoneal Other Cells Peritoneal Albumin COVID-19 ([facility]) Negative COVID-19 Clin Com See Note Hepatitis A IgM Ab Hep Bs Antigen Hep Bs Antibody Hep B Core Total Ab Hepatitis C Ab (EIA) 03/10/21 03/10/21 03/10/21 20:28 20:28 20:28 WBC RBC Hgb Hct MCV MCH MCHC RDW Plt Count MPV Immature Gran % (Auto) Neut % (Auto) Lymph % (Auto) [place] % (Auto) Eos % (Auto) Baso % (Auto) Lymph # (Auto) [place] # (Auto) Eos # (Auto) Baso # (Auto) Abs Immat Gran (auto) Absolute Neuts (auto) Absolute Nucleated RBC Nucleated RBC % (auto) Smear Tech's Comments PT INR Sodium Potassium Chloride Carbon Dioxide Anion Gap BUN Creatinine Estim Creat Clear Calc Estimated GFR Random Glucose Calcium Ferritin 599 H Total Bilirubin GGT 119 H AST ALT Alkaline Phosphatase Ammonia Total Protein Albumin Lipase Vitamin B12 Folate Peritoneal WBC Peritoneal RBC Periton Neutrophils Periton Lymphocytes Peritoneal Monocytes Peritoneal Eosinophils Peritoneal Basophils Peritoneal Other Cells Peritoneal Albumin COVID-19 ([facility]) COVID-19 Clin Com Hepatitis A IgM Ab Nonreactive Hep Bs Antigen Negative Hep Bs Antibody NONREACTIVE Hep B Core Total Ab Nonreactive Hepatitis C Ab (EIA) Nonreactive 03/10/21 20:28 WBC RBC Hgb Hct MCV MCH MCHC RDW Plt Count MPV Immature Gran % (Auto) Neut % (Auto) Lymph % (Auto) [place] % (Auto) Eos % (Auto) Baso % (Auto) Lymph # (Auto) [place] # (Auto) Eos # (Auto) Baso # (Auto) Abs Immat Gran (auto) Absolute Neuts (auto) Absolute Nucleated RBC Nucleated RBC % (auto) Smear Tech's Comments PT INR Sodium Potassium Chloride Carbon Dioxide Anion Gap BUN Creatinine Estim Creat Clear Calc Estimated GFR Random Glucose Calcium Ferritin Total Bilirubin GGT AST ALT Alkaline Phosphatase Ammonia Total Protein Albumin Lipase Vitamin B12 795 Folate 7.2 Peritoneal WBC Peritoneal RBC Periton Neutrophils Periton Lymphocytes Peritoneal Monocytes Peritoneal Eosinophils Peritoneal Basophils Peritoneal Other Cells Peritoneal Albumin COVID-19 ([facility]) COVID-19 Clin Com Hepatitis A IgM Ab Hep Bs Antigen Hep Bs Antibody Hep B Core Total Ab Hepatitis C Ab (EIA) Airway Mallampati Class: II TM Dist: >3cm Neck ROM: Full Heart: RRR. Heave Lungs: CTAB Assessment and Plan Assessment Anesthesia Assessment: Anesthesia Plan Discussed and Chart Reviewed Final Anesthetic Review Family History of Problems with Anesthesia: No History of Problems with Anesthesia: No NPO: Yes ASA Class: III Final Preanesthetic Review: No Changes in Pt Med Stat, Meds/Allgs Chart Reviewed, Consent Obtained/Reviewed and Anes Risks/Benef Reviewed Patient Risk: Intermediate Procedure Risk: Low Assessment/Block/Sedation in SS: Assess/Block/Sedation-SS Anesthetic Plan Anesthetic Plan: MAC: Disposition: Standard PACU
[2021-03-11] MEDS: Lactated Ringers 1,000 ML 100 ML IVCONT (13:30)
[2021-03-11] MEDS: Melatonin 3 MG TABLET 6 MG PO (22:00)
[2021-03-12 03:32] VITALS: BP 121/58; PULSE 53; RESP 18; TEMP 37.3; O2SAT 95
[2021-03-12] MEDS: Pantoprazole Sodium 40 MG/10 ML VIAL IVPUSH (06:12)
--- NOTE | 2021-03-12 06:15 | PC.NURSE ---
pt refused IV fluids overnight, he is tolerating a regular diet and drinking fluids. Dr. Mame obrien.
[2021-03-12] MEDS: Omeprazole 20 MG CAPSULE.DR PO (07:25)
[2021-03-12] MEDS: Furosemide 20 MG TABLET PO (07:25)
[2021-03-12 07:26] VITALS: BP 121/58
[2021-03-12] MEDS: Spironolactone 25 MG TABLET PO (07:26)
[2021-03-12] MEDS: 0.9 % Sodium Chloride Flush 3 ML SYRINGE IVFLUSH (07:33)
--- NOTE | 2021-03-12 07:46 | HO.POSTANES ---
Post Anesthesia Evaluation Post Anesthesia Evaluation Vital Signs: Vital Signs Temp Pulse Resp BP Pulse Ox 03/12/21 07:26 121/58 L 03/12/21 03:32 99.1 F 53 18 121/58 L 95 03/11/21 23:34 98.5 F 92 18 112/75 95 03/11/21 20:00 98.9 F 80 18 118/67 94 Anesthesia: Monitored Mental Status: Awake Pain Control: Satisfactory Nausea/Vomiting: None Hydration: Adequate Anesthesia-Related Issues: No Anes. Related Issues
[2021-03-12 07:51] VITALS: BP 125/73; PULSE 72; RESP 18; TEMP 36.3; O2SAT 93
[2021-03-12 08:38] LABS: Anion Gap 8 (12-20); Blood Urea Nitrogen 5 mg/dL (9-16); Carbon Dioxide 32 mmol/L (22-29); Chloride 99 mmol/L (96-108); Creatinine Clr Calc Pharmacy 128.5; Estimated Glomerular Filt Rate > 60; Glucose Random 89 mg/dL (60-115); Potassium 4.1 mmol/L (3.3-5.1); Sodium 135 mmol/L (135-145)
--- NOTE | 2021-03-12 10:00 | P.DS_ITS ---
DS: Providers Provider Date of Service: 03/12/21 Date of admission: 03/09/21 22:42 Primary care physician: Adelaide Cotto MD Consults: 03/09/21 22:38 Consult to Gastroenterology Routine Consulting Provider: Lia Ruiz Reason for consultation: Ascites DS: Diagnosis Discharge Diagnosis (1) Alcoholic cirrhosis of liver with ascites: Status: Acute (2) Ascites: Status: Acute DS: Summary Hospital Course Hospital Course: Chief Complaint: Abdominal pain 65-year-old male with no significant past medical history except for alcohol use presented to the hospital with a chief complaint of abdominal pain/discomfort/distention for the past 1 week.? Patient reports that he drinks alcohol on a regular basis but last drink was last Tuesday; denies any sense of control; but noted to have abdominal distention which has been gradually worsening denies any associated nausea vomiting or diarrhea.? Denies any chest pain palpitations lightheadedness or dizziness.? Denies any fever chills cough.? Denies any urinary symptoms. Mentions that he feels constipated and he also noted blood in the stool few times. Mentions that his abdominal was gradual increasing size and increasing the pain.? Hence presented to the hospital for further evaluation ER course:? Noted to have distended abdomen, mildly tender diffusely, CT abdomen showed ascites with normal liver contour; status post diagnostic tap-results pending; admitted to the hospital for further management. Hospital course: patient presented with abdominal pain and noted to have asci etes. He had paracentesis done in the ED and fluid analysis not consistent with SBP, there was no fever or increase WBC, he is started on Lasix and Aldactone to controle ascietes. In adittion he reported some blood in the stool but no active bleed. For this he had EGD and colonospopy by Dr. Ruiz on 03/11/21 with the following finding and recommendations: external and internal hemorrhoids possible barretts portal hypertensive gastropathy gastritis, likely alcohol related PLAN: repeat EGD in 1-2 yrs for variceal screening can commence low dose PPI high fiber diet anusol prn, surgical referral if worsening rectal bleeding He is advised to avoid alcohol and CARE team has advised him. Time Spent with Patient Time attestation: Total time spent providing and/or coordinating discharge services: Discharge coordination time: Greater than 30 minutes Quality: Stroke Does the patient have a stroke diagnosis?: No Physical Exam Vital Signs: Vital Signs: Last Vital Signs Temp 97.3 F 03/12/21 07:51 Pulse 72 03/12/21 07:51 Resp 18 03/12/21 07:51 BP 125/73 03/12/21 07:51 Pulse Ox 93 03/12/21 07:51 Body Mass Index 22.3 DS: Data Data Completed and Pending Labs on day of discharge: Laboratory Results - last 24 hr 03/12/21 07:59 Sodium 135 Potassium 4.1 D Chloride 99 Carbon Dioxide 32 H Anion Gap 8 L BUN 5 L Creatinine 0.57 Estim Creat Clear Calc 128.5 Estimated GFR > 60 Random Glucose 89 Calcium 8.0 L Preliminary micro results at discharge 03/09/21 22:10 Anaerobic Culture - Preliminary Peritoneal Fluid No growth to date. Discharge Plan Discharge Anticipated Discharge Date/Time: 03/12/21 09:54 Patient Disposition: Home, Self-Care Discharge Diagnosis: Alcohol liver cirrhosis, ascietes Referrals: Adelaide Cotto MD [Primary Care Provider] - 1 Week Discharge Medications: New spironolactone 25 mg Tablet 25 mg PO DAILY Qty: 30 RF: 0 omeprazole 20 mg Capsule,Delayed Release(Dr/Ec) 20 mg PO BID@0630,1630 Qty: 60 RF: 0 furosemide 20 mg Tablet 20 mg PO DAILY Qty: 30 RF: 0 No Action No Known Home Meds RF: 0 Discharge Orders: Discharge Order (Routine); Ordered 03/12/21 Ordered By: Chin Sidhu Diet: advance to usual diet Activity on Discharge: As tolerated Stand Alone Forms: Patient Portal Discharge page Care Plan Goals: To stay sobber, and prevent worsening of liver disease Health Concerns: Alcoholic liver disease Plan of Treatment: Take prilosec, lasix and aldactone as recommended and follow up with your Doctor in a week Assessment: as above
--- NOTE | 2021-03-12 10:03 | MHC.CM.PN ---
PATIENT IS DISCHARGED HOME - SELF CARE. OF THIS NOTE, NO CARE TEAM INTERVENTION CASE MANAGEMENT TO FOLLOW UP AT MEDICAL ROUNDS.
--- NOTE | 2021-03-12 11:00 | MHC.RECOVRN ---
T/w met with pt after consult placed to CARE Team for alcohol use. Pt reports drinking since a teenager, approx 9 mixed drinks or beers daily. Pt reports one period of recovery 15 years ago due to receiving a DUI. Pt remained abstinent x 1 year. Pt denies every receiving tx other than the court mandated program from DUI. Pt attended AA, states It's a bunch of bullshit. You go out for a drink after. Pt denies alcohol use interfering with life other than above. Pt states I worked, I function. Pt currently living with and taking care of 88 year old mother. Pt reports family hx alcohol use, father and siblings. Discussed recovery support options and provided with recovery resources, denies referrals at this time. Discussed with pts RN as well as Rosa Wong APRN.
[2021-03-12 11:52] VITALS: BP 124/71; PULSE 96; RESP 20; TEMP 36.8; O2SAT 96
[2021-03-12 13:51] LABS: Anti Nuclear Antibody Screen NEGATIVE (NEGATIVE)
[2021-03-12 19:32] LABS: Alpha 1 Anti-trypsin 122 mg/dL (83-199); Ceruloplasmin 22 mg/dL (18-36); IgA 609 mg/dL (70-320); IgG 702 mg/dL (600-1540); IgM 79 mg/dL (50-300)
[2021-03-13 14:05] LABS: Mitochondrial Antibodies NEGATIVE (NEGATIVE); Transglutaminase Ab IgG <1.0 U/mL; Transglutaminase IgA <1.0 U/mL
[2021-03-13 14:42] LABS: Soluble Liver Ag Autoantibody <20.1 U (0.0-20.0)
[2021-03-14 14:05] LABS: Zinc 27 mcg/dL (60-130)
[2021-03-15 13:01] LABS: Smooth Muscle Antibody <20 U (<20)
== END 2021-03-12 14:20 | disposition home or self-care (01) | DRG 432 ==
LOC: HO.ED 23:03 → HO.EDOVER 23:15 → HO.S3 03-10 23:05
PROVIDERS: Internal Medicine Gastroenterology; Admitting Provider Hospitalist; Emergency Provider Internal Medicine; PCP Family Medicine; Visit Provider Internal Medicine
PROC: 0DJ08ZZ Inspection of Upper Intestinal Tract, Via Natural or Artificial Opening Endoscopic (ICD-10-PCS; CPT 43235; principal; 2021-03-11 13:50)
DX: K70.31 Alcoholic cirrhosis of liver with ascites (principal); K29.21 Alcoholic gastritis with bleeding; K76.6 Portal hypertension; F17.210 Nicotine dependence, cigarettes, uncomplicated; F10.20 Alcohol dependence, uncomplicated; K46.9 Unspecified abdominal hernia without obstruction or gangrene; K22.70 Barrett's esophagus without dysplasia; K31.89 Other diseases of stomach and duodenum; K64.8 Other hemorrhoids; K64.4 Residual hemorrhoidal skin tags; Z20.822 Contact with and (suspected) exposure to COVID-19; Z71.6 Tobacco abuse counseling; Z23 Encounter for immunization; Z79.899 Other long term (current) drug therapy
CPT/HCPCS: 36415; 74177; 80048; 80053; 82042; 82103; 82140; 82390; 82607; 82728; 82746; 82784; 82977; 83516; 83520; 83690; 84630; 85025; 85610; 86038; 86039; 86255; 86256; 86704; 86706; 86709; 86803; 87071; 87073; 87205; 87340; 87635; 89051; 90686; 96365; 96366; 99285; J2370; P9047; Q9967

== ENCOUNTER 2023-02-09 08:16 | Outpatient (REF) | payer OTHER, SELFPAY ==
--- NOTE | ~2023-02-09 | US_ITS ---
EXAMINATION: US COMPLETE ABDOMEN WITH LIVER ELASTOGRAPHY CLINICAL INFORMATION: Alcoholic liver disease. COMPARISON: CT abdomen and pelvis dated 03/09/2021. TECHNIQUE: Real-time imaging of the abdominal viscera. Noninvasive ultrasound liver fibrosis assessment is performed using Otilia ElastPQ point quantification shear wave elastography (2D-SWE) with a C5-2 MHz transducer. Multiple elastography samples are obtained. FINDINGS: PANCREAS: Normal. The visualized pancreatic head and body are normal in appearance. The remainder of the pancreas is obscured from visualization by the overlying bowel gas. ABDOMINAL AORTA: The proximal, middle, and distal aortic segments are normal in caliber. There are atherosclerotic calcifications. INFERIOR VENA CAVA: Visualized portions are normal. LIVER: There is a scalloped hepatic contour. The liver demonstrates normal size, contour and increased echogenicity. No focal lesion or intrahepatic biliary duct dilatation. The right lobe measures 14.2 cm in length. The left lobe measures 7.0 cm in length. Portal flow is towards the liver (hepatopetal). Shear wave liver elastography median stiffness is 2.05 m/s (reference: normal median stiffness is 1.3 m/s or less). IQR/median stiffness to assess sampling precision is 0.13 (reference: good quality data set is IQR/median stiffness of 0.15 or less). GALLBLADDER: There are multiple gallstones, without biliary sludge, polyps, wall thickening or pericholecystic fluid. COMMON BILE DUCT: Borderline enlarged in caliber, measuring 0.8 cm in diameter. RIGHT KIDNEY: Normal. No hydronephrosis. No renal calculi or focal parenchymal lesions. The kidney measures 10.2 cm in maximum dimension. LEFT KIDNEY: Normal. No hydronephrosis. No renal calculi or focal parenchymal lesions. The kidney measures 11.0 cm in maximum dimension. SPLEEN: Normal. The spleen measures 10.2 cm in maximum dimension. FREE FLUID: None. US/US abdomen comp w elastography IMPRESSION: 1. There is generalized increase in hepatic echotexture, consistent with fatty infiltration or hepatocellular disease. Please correlate clinically. A scalloped hepatic contour favors cellular disease. No focal hepatic mass or intrahepatic biliary dilatation is seen. 2. Liver elastography: Measurements are suggestive of compensated advanced chronic liver disease but need further test for confirmation. 3. There is cholelithiasis. 4. There is borderline dilatation of the common bile duct to 8 mm. No focal choledocholith or pancreatic head mass is seen. If clinically indicated, this could be further evaluated with CT or MRI/MRCP. REFERENCE: Society of Radiologists in Ultrasound Liver Stiffness Thresholds (2020): LIVER STIFFNESS THRESHOLDS: *Liver Stiffness equal or less than 1.3 m/s: High probability of being normal. *Liver Stiffness less than 1.7 m/s: In the absence of other known clinical signs, rules out compensated advanced chronic liver disease. *Liver Stiffness 1.7-2.1 m/s: Suggestive of compensated advanced chronic liver disease but need further test for confirmation. *Liver Stiffness over 2.1 m/s: Rules in compensated advanced chronic liver disease. *Liver Stiffness over 2.4 m/s: Suggestive of clinically significant portal hypertension. QUALITY OF DATA SET: *IQR/Median value equal or less than 0.15 implies a quality data set. *IQR/Median value over 0.15 implies a poor quality data set. SIGNIFICANT CHANGE FROM PRIOR EXAM: Significant change if liver stiffness measurement is 10% or greater from prior exam. OTHER CONSIDERATIONS: The stage of liver fibrosis may be overestimated in the setting of acute hepatitis, liver inflammation, elevated liver function tests, hepatic vascular congestion, obstructive cholestasis, non-fasting state, and infiltrative diseases such as amyloidosis and lymphoma. In some patients with NAFLD, the liver stiffness thresholds for compensated advanced chronic liver disease may be lower. In causes other than viral hepatitis and NAFLD, liver stiffness thresholds are not well established.
== END 2023-02-09 08:17 | disposition home or self-care (01) ==
LOC: HO.US 08:16
PROVIDERS: Visit Provider Internal Medicine
DX: K70.9 Alcoholic liver disease, unspecified (principal)
CPT/HCPCS: 76705; 76981

== ENCOUNTER 2023-02-09 09:11 | Outpatient (REF) | payer OTHER, SELFPAY ==
[2023-02-11 12:53] LABS: Alpha Fetoprotein 3.2 ng/mL (<6.1)
[2023-02-17 16:28] LABS: FIB-ALT 8 U/L (9-46); FIB-Alpha-2-Macroglobulin 327 mg/dL (106-279); FIB-Apolipoprotein A1 133 mg/dL (94-176); FIB-GGT 31 U/L (3-70); FIB-Haptoglobin 150 mg/dL (43-212); FIB-Total Bilirubin 0.6 mg/dL (0.2-1.2); Liver Fibrosis Score 0.59; Liver Fibrosis Stage F3; Nec Inflam Act Grade A0; Nec Inflam Act Score 0.03
== END 2023-02-09 09:12 | disposition home or self-care (01) ==
LOC: HO.10HDL 09:11
PROVIDERS: Visit Provider Internal Medicine
DX: K70.9 Alcoholic liver disease, unspecified (principal)
CPT/HCPCS: 36415; 80076; 81596; 82105; 82728; 83540; 85025; 85610

== ENCOUNTER 2023-03-18 09:38 | Day surgery (SDC) | payer OTHER, SELFPAY ==
--- NOTE | 2023-03-17 11:02 | HO.ANESPROP2 ---
HPI - Anesthesia Eval Consult details Narrative: 67yo M for Upper Endoscopy and Colonoscopy ETOH cirrhosis PMFSH Active Problems Active Problems: All Active Problems (Updated 03/15/23 @ 20:05 by Jennifer Foster RN) Alcoholic cirrhosis of liver with ascites (Acute) Ascites (Acute) Liver failure (Acute) Past Medical History Medical History (Updated 03/15/23 @ 20:05 by Jennifer Foster RN) Smoker History of sigmoidoscopy Liver disease, alcoholic Alcohol abuse Hypertension Hypercholesterolemia Left ventricular hypertrophy Aortic root dilatation Family History Family history of problems with anesthesia: No Surgical History Surgical History (Updated 03/15/23 @ 20:05 by Jennifer Foster RN) History of esophagogastroduodenoscopy (EGD) History of Problems with Anesthesia: No Social History Social History (Updated 03/11/21 @ 13:37 by Estefania Eduardo MD) Household Members: Family Housing: House Do you presently have visiting nurse or other home services: No Alcohol intake: current Alcohol intake frequency: 3 or more drinks per day Alcohol type: beer and hard liquor Patient Tobacco Use Status: Current everyday Tobacco user Tobacco use type: Cigarette Cigarettes Per Day: 10 Years Smoked: 40 Second Hand Smoke Exposure: No Substance Use Type: Marijuana service: Yes Current occupational status: retired Meds Allergies Allergy/AdvReac Type Severity Reaction Status Date / Time No Known Allergies Allergy Verified 03/04/21 11:30 [No Known Allergies*] Exam Pertinent Lab Results Pertinent Lab Results: Laboratory Tests 02/09/23 09:20 WBC 7.7 Hgb 16.1 D Hct 48.3 D Plt Count 220 D Narrative Narrative: US abdomen comp w elastography 01/2023 IMPRESSION: 1. There is generalized increase in hepatic echotexture, consistent with fatty infiltration or hepatocellular disease. Please correlate clinically. A scalloped hepatic contour favors cellular disease. No focal hepatic mass or intrahepatic biliary dilatation is seen. 2. Liver elastography: Measurements are suggestive of compensated advanced chronic liver disease but need further test for confirmation. 3. There is cholelithiasis. 4. There is borderline dilatation of the common bile duct to 8 mm. No focal choledocholith or pancreatic head mass is seen. If clinically indicated, this could be further evaluated with CT or MRI/MRCP. Assessment and Plan Assessment Anesthesia Assessment: Chart Reviewed Final Anesthetic Review Family History of Problems with Anesthesia: No History of Problems with Anesthesia: No
[2023-03-18 09:48] VITALS: BP 160/79; PULSE 77; RESP 16; TEMP 36.7; O2SAT 98; BMI 20.8
--- NOTE | 2023-03-18 10:16 | P.CONAN_ITS ---
[facility] Active Problems Active Problems: All Active Problems (Updated 03/15/23 @ 20:05 by Jennifer Foster RN) Alcoholic cirrhosis of liver with ascites (Acute) Ascites (Acute) Liver failure (Acute) Past Medical History Medical History Smoker History of sigmoidoscopy Liver disease, alcoholic Alcohol abuse Hypertension Hypercholesterolemia Left ventricular hypertrophy Aortic root dilatation Functional capacity: independent ambulation Family History Family history of problems with anesthesia: No Surgical History Surgical History History of surgery of head H/O colonoscopy History of esophagogastroduodenoscopy (EGD) History of Problems with Anesthesia: No Social History Social History Household Members: Family Housing: House Do you presently have visiting nurse or other home services: No Alcohol intake: current Alcohol intake frequency: a few times a week Alcohol type: beer and hard liquor Patient Tobacco Use Status: Current everyday Tobacco user Tobacco use type: Cigarette Cigarettes Per Day: 7 Years Smoked: 55 Smoked in Last 30 Days: Yes Second Hand Smoke Exposure: No Use of substances other than those prescribed or required for medical reasons: Yes Substance Use Type: Marijuana Substance Use Frequency: Daily Advance Directives: No Advance Directives Information Provided: Yes service: Yes Current occupational status: retired [employer] Allergies Allergy/AdvReac Type Severity Reaction Status Date / Time No Known Allergies Allergy Verified 03/18/23 09:45 [No Known Allergies*] Active Medications: Current Medications Albuterol Sulfate (Albuterol Sulfate (0.083%) 2.5 Mg/3 Ml Vial.Neb) 2.5 mg INHALE ONCE PRN PRN Reason: Shortness of Breath/Wheezing Lactated Ringer's (Lr) 1,000 mls @ 50 mls/hr IVCONT .Q20H FELY Sodium Biphosphate/Sodium Phosphate (Sodium Phosphate,[place]-Dibasic 133 Ml Enema) 133 ml CO ONCE PRN PRN Reason: poor colo Exam Height,Weight and Vital Signs: Height 5 ft 9 in Weight 63.866 kg Last Vital Signs Temp 98.1 F 03/18/23 09:48 Pulse 77 03/18/23 09:48 Resp 16 03/18/23 09:48 BP 160/79 H 03/18/23 09:48 Pulse Ox 98 03/18/23 09:48 O2 Del Method Room Air 03/18/23 09:48 Airway Mallampati Class: II TM Dist: >3cm Neck ROM: Full Heart: RRR Lungs: CTA Assessment and Plan Assessment Anesthesia Assessment: Anesthesia Plan Discussed Final Anesthetic Review Family History of Problems with Anesthesia: No History of Problems with Anesthesia: No NPO: Yes ASA Class: III Final Preanesthetic Review: Meds/Allgs Chart Reviewed, Consent Obtained/Reviewed and Anes Risks/Benef Reviewed Anesthetic Plan Anesthetic Plan: GA Disposition: Standard PACU
[2023-03-18] MEDS: Lactated Ringers 1,000 ML 50 ML IVCONT (10:21)
--- NOTE | 2023-03-18 10:24 | HO.ANESPROP2 ---
[facility] Active Problems Active Problems: All Active Problems (Updated 03/15/23 @ 20:05 by Jennifer Foster RN) Alcoholic cirrhosis of liver with ascites (Acute) Ascites (Acute) Liver failure (Acute) Past Medical History Medical History Smoker History of sigmoidoscopy Liver disease, alcoholic Alcohol abuse Hypertension Hypercholesterolemia Left ventricular hypertrophy Aortic root dilatation Functional capacity: independent ambulation Family History Family history of problems with anesthesia: No Surgical History Surgical History History of surgery of head H/O colonoscopy History of esophagogastroduodenoscopy (EGD) History of Problems with Anesthesia: No Social History Social History Household Members: Family Housing: House Do you presently have visiting nurse or other home services: No Alcohol intake: current Alcohol intake frequency: a few times a week Alcohol type: beer and hard liquor Patient Tobacco Use Status: Current everyday Tobacco user Tobacco use type: Cigarette Cigarettes Per Day: 7 Years Smoked: 55 Smoked in Last 30 Days: Yes Second Hand Smoke Exposure: No Use of substances other than those prescribed or required for medical reasons: Yes Substance Use Type: Marijuana Substance Use Frequency: Daily Advance Directives: No Advance Directives Information Provided: Yes service: Yes Current occupational status: retired [employer] Allergies Allergy/AdvReac Type Severity Reaction Status Date / Time No Known Allergies Allergy Verified 03/18/23 09:45 [No Known Allergies*] Active Medications: Current Medications Albuterol Sulfate (Albuterol Sulfate (0.083%) 2.5 Mg/3 Ml Vial.Neb) 2.5 mg INHALE ONCE PRN PRN Reason: Shortness of Breath/Wheezing Lactated Ringer's (Lr) 1,000 mls @ 50 mls/hr IVCONT .Q20H FELY Last Admin: 03/18/23 10:21 Dose: 50 mls/hr Sodium Biphosphate/Sodium Phosphate (Sodium Phosphate,[place]-Dibasic 133 Ml Enema) 133 ml MT ONCE PRN PRN Reason: poor colo Exam Height,Weight and Vital Signs: Height 5 ft 9 in Weight 63.866 kg Last Vital Signs Temp 98.1 F 03/18/23 09:48 Pulse 77 03/18/23 09:48 Resp 16 03/18/23 09:48 BP 160/79 H 03/18/23 09:48 Pulse Ox 98 03/18/23 09:48 O2 Del Method Room Air 03/18/23 09:48 Airway Mallampati Class: II TM Dist: >3cm Neck ROM: Full Heart: RRR Lungs: CTA Assessment and Plan Assessment Anesthesia Assessment: Anesthesia Plan Discussed and Smoking Cess. Discussed Final Anesthetic Review Family History of Problems with Anesthesia: No History of Problems with Anesthesia: No ASA Class: III Final Preanesthetic Review: Meds/Allgs Chart Reviewed, Consent Obtained/Reviewed and Anes Risks/Benef Reviewed Patient Risk: Low Procedure Risk: Low Anesthetic Plan Anesthetic Plan: GA Disposition: Standard PACU
[2023-03-18 12:15] VITALS: BP 124/69; PULSE 83; RESP 16; O2SAT 97
--- NOTE | 2023-03-18 12:18 | P.BOP_ITS ---
Brief Operative Note Date of Service: 03/18/23 Pre-op diagnosis: GERD, Screening Post-op diagnosis: other (Colon polyp, R/O Golden's) Procedure: EGD with biopsies, Colonoscopy to the cecum and TI with cold snare polypectomy Surgeon: Perico Mosquera MD Anesthesia: MAC Was an Crane Hoist Or Lift Operator used for this Procedure?: No Estimated blood loss (mL): 2.0 Pathology: other (A. EG Junction at 38cm B. Gastric antrum C. Ascending colon polyp) Condition: stable Disposition: PACU
[2023-03-18 12:20] VITALS: BP 119/65; PULSE 90; RESP 16; TEMP 36.6; O2SAT 97
[2023-03-18 12:25] VITALS: BP 136/72; PULSE 74; RESP 16; O2SAT 96
[2023-03-18 12:30] VITALS: BP 145/76; PULSE 83; RESP 16; O2SAT 99
--- NOTE | 2023-03-18 12:41 | OP_ITS ---
DATE OF SERVICE: 03/18/2023 SURGEON: Perico Mosquera MD INDICATIONS: The patient presents for evaluation of gastroesophageal reflux, reported history of Golden's esophagus, underlying reported cirrhosis, and colorectal cancer screening. Full consent has been obtained from him for this, including risks of bleeding and perforation. PREOPERATIVE DIAGNOSIS: POSTOPERATIVE DIAGNOSIS: PROCEDURE PERFORMED: Esophagogastroduodenoscopy with biopsies, and colonoscopy to the cecum and terminal ileum with cold snare polypectomy. ESTIMATED BLOOD LOSS: COMPLICATIONS: ANESTHESIA: Monitored anesthesia care. ASSISTANTS: SPECIMENS: PREOPERATIVE DIAGNOSES: Gastroesophageal reflux, Golden's esophagus, cirrhosis, colorectal cancer screening. POSTOPERATIVE DIAGNOSES: Gastroesophageal reflux, Golden's esophagus, cirrhosis, colorectal cancer screening, hiatal hernia, gastritis, colon polyp, diverticulosis, and internal hemorrhoids. DESCRIPTION OF PROCEDURE: The patient was placed in the left lateral decubitus position. The Olympus video gastroscope was passed in the posterior oropharynx and upper esophagus under direct vision. The scope was passed slowly to the distal esophagus. The gastroesophageal junction appeared at 38 cm. There was some slight irregularity consistent with reflux and less than 1 cm areas of possible Golden's mucosa. There was no esophagitis. There was no evidence of any esophageal varices. The scope entered the stomach, there was a small hiatal hernia. The scope was advanced to the pylorus, and the duodenum was cannulated to the descending portion. The duodenum including the bulb appeared normal without mass or ulceration. The scope was withdrawn back to the stomach. The gastric antrum had areas of erythema and edema but no erosions or ulceration. There was good peristalsis. Biopsies were obtained from the antrum. The scope was retroflexed visualizing the proximal stomach carefully, which appeared normal, without any sign of mass or ulceration. There was no evidence of any gastric varices, nor any definitive gastropathy. The scope was straightened and withdrawn back to the esophagus. Biopsies were obtained from the EG junction at 38 cm. Proximal to this, the esophageal mucosa appeared normal. There was no evidence of any varices. The scope was withdrawn from the patient. He was turned around for the colonoscopy. The digital rectal exam revealed no abnormalities. The Olympus video pediatric colonoscope was entered into the rectum and advanced easily to the cecum. Once in the cecum, I did identify normal-appearing cecal pouch with appendiceal orifice and a normal-appearing ileocecal valve. The terminal ileum was cannulated and appeared normal. The scope was withdrawn back in the cecum. The entire cecum and ileocecal valve appeared normal. The scope was slowly withdrawn assessing all mucosal surfaces carefully. Preparation was excellent. In the proximal ascending colon was a flat approximately 5 mm polyp, which was removed by cold snare polypectomy and recovered by suction. The polypectomy site appeared clean, without any sign of residual polyp nor significant bleeding. I did not visualize any other polyps, colitis, nor angiodysplasia. There was a mild amount of sigmoid diverticulosis. In the rectum, scope was retroflexed visualizing internal hemorrhoids, but no other pathology. The rectal mucosa appeared normal. The scope was straightened and withdrawn from the patient. He tolerated the procedure well and was returned to the recovery area in stable condition. IMPRESSION: 1. Hiatal hernia, gastroesophageal reflux, history of Golden's esophagus. 2. Gastritis. 3. Colon polyp. 4. Diverticulosis. 5. Internal hemorrhoids. PLAN: The results of the biopsies will be checked. If there is evidence of Golden's esophagus, I would recommend a repeat upper endoscopy in 3 years. He was advised to continue his daily omeprazole. If the colon polyp is a tubular adenoma, I would recommend a followup coloscopy in 5 years. If it is only hyperplastic, I would recommend a followup coloscopy in 10 years. He was advised to avoid aspirin and NSAIDs for least 1 week, but to try to avoid them in general long-term given his history of smoking and intermittent alcohol use. He will otherwise see me on a p.r.n. basis. MD YORDAN Myrick/LADY / [phone] MTDAnitha
[2023-03-18 12:43] VITALS: BP 140/79; PULSE 83; RESP 16; TEMP 36.6; O2SAT 99
--- NOTE | 2023-03-18 12:56 | HO.POSTANES ---
Post Anesthesia Evaluation Post Anesthesia Evaluation Date of Service: 03/18/23 Vital Signs: Vital Signs Temp Pulse Resp BP Pulse Ox O2 Del Method 03/18/23 12:43 97.8 F 83 16 140/79 H 99 Room Air 03/18/23 12:30 83 16 145/76 H 99 Room Air 03/18/23 12:25 74 16 136/72 96 Room Air 03/18/23 12:20 97.8 F 90 16 119/65 97 Room Air 03/18/23 12:15 83 16 124/69 97 Room Air 03/18/23 09:48 98.1 F 77 16 160/79 H 98 Room Air Anesthesia: TIVA Mental Status: Awake Pain Control: Satisfactory Nausea/Vomiting: None Hydration: Adequate Anesthesia-Related Issues: No Anes. Related Issues
== END 2023-03-18 13:10 | disposition home or self-care (01) ==
PROVIDERS: PCP Family Medicine; Visit Provider Internal Medicine
PROC: (CPT 43239; principal; 2023-03-18 10:50)
DX: K29.70 Gastritis, unspecified, without bleeding (principal); K44.9 Diaphragmatic hernia without obstruction or gangrene; Z12.11 Encounter for screening for malignant neoplasm of colon; D12.2 Benign neoplasm of ascending colon; K57.30 Diverticulosis of large intestine without perforation or abscess without bleeding; K21.9 Gastro-esophageal reflux disease without esophagitis; K22.70 Barrett's esophagus without dysplasia; I10 Essential (primary) hypertension; E78.00 Pure hypercholesterolemia, unspecified; K70.31 Alcoholic cirrhosis of liver with ascites; K72.90 Hepatic failure, unspecified without coma; F17.210 Nicotine dependence, cigarettes, uncomplicated
CPT/HCPCS: 43239; 45385; 88305; 88342; J2704

== ENCOUNTER 2023-08-06 19:20 | Inpatient (IN) | payer OTHER, SELFPAY ==
[2023-08-06] VITALS (14 sets, daily range): BP systolic 90–152; BP diastolic 54–78; PULSE 79–136; RESP 24–32; TEMP 37.4–39.8; O2SAT 94–97; BMI 21.4
--- NOTE | ~2023-08-06 | US_ITS ---
EXAMINATION: US ABDOMEN LIMITED CLINICAL INFORMATION: History of cholelithiasis. Elevated LFTs. COMPARISON: CT abdomen and pelvis 08/06/2023. TECHNIQUE: Real-time imaging of the gallbladder. FINDINGS: Sludge and stones in the neck of the gallbladder with diffuse gallbladder wall thickening measuring up to 0.5 cm. No significant pericholecystic free fluid. Negative Alegre's sign. Mildly dilated CBD measuring up to 0.8 cm. US/US abdomen limited IMPRESSION: 1. Cholelithiasis and sludge in the neck of the gallbladder with diffuse gallbladder wall thickening which could be seen in the setting of acute cholecystitis in the appropriate clinical setting. 2. Mild dilatation of the CBD of uncertain etiology. If indicated, correlation with MRCP could be obtained.
--- NOTE | ~2023-08-06 | CT_ITS ---
EXAMINATION: CT ANGIOGRAM OF THE CHEST WITH AND WITHOUT CONTRAST (CT PULMONARY ANGIOGRAM FOR PE) CLINICAL INFORMATION: Hypoxia COMPARISON: None available. TECHNIQUE: Prior to contrast administration, noncontrast localization images were obtained. Subsequently, multidetector volumetric imaging was performed from the thoracic inlet to below the diaphragms following the administration of 85 mL Omnipaque 350 intravenous contrast. No contrast reaction reported Sagittal, coronal, and MIP oblique sagittal reformatted images were obtained on the CT workstation, uploaded to PACS, and reviewed. This CT examination was performed using dose optimization techniques as appropriate, variously including the following: *Automated exposure control *Adjustment of mA and/or kV according to patient size (this includes techniques or standardized protocols for targeted exams where dose is matched to indication/reason for exam; i.e. extremities or head) *Use of iterative reconstruction technique Total exam dose-length product 339.66 mGy-cm FINDINGS: QUALITY OF STUDY/CONTRAST BOLUS: Satisfactory. PULMONARY ARTERIES: No pulmonary emboli. THORACIC AORTA: No aneurysm. Scattered atherosclerotic calcifications LUNG: Peribronchovascular interstitial groundglass nodules and groundglass changes seen within the bilateral upper lobes, right greater than left. Additional small focal areas of airspace consolidations in the bilateral lower lobes, left greater than right PLEURA: No pleural effusion or pneumothorax. MEDIASTINUM: Normal heart size. No pericardial effusion. No hilar or mediastinal lymphadenopathy. No evidence of septal bowing or right heart strain. CORONARY ARTERY CALCIFICATION: Present CHEST WALL/AXILLA: No axillary or internal mammary lymphadenopathy. OSSEOUS STRUCTURES: No acute or suspicious osseous abnormality. UPPER ABDOMEN: Unremarkable. No reflux of contrast into the hepatic veins to suggest elevated right heart pressures. CT/CT angio chest PE protocol IMPRESSION: 1. No evidence of acute pulmonary embolus. 2. Peribronchovascular interstitial groundglass nodules and groundglass changes seen within the bilateral upper lobes, right greater than left. Additional small focal areas of airspace consolidations in the bilateral lower lobes, left greater than right. Findings are concerning for infectious/inflammatory process such as bronchopneumonia. VTE: negative.
--- NOTE | ~2023-08-06 | CT_ITS ---
EXAMINATION: CT HEAD WITHOUT CONTRAST CLINICAL INFORMATION: Fall. Confusion. COMPARISON: No relevant prior imaging. TECHNIQUE: Contiguous axial imaging was performed from the skull base to vertex without intravenous administration of contrast. This CT examination was performed using dose optimization techniques as appropriate, variously including the following: *Automated exposure control *Adjustment of mA and/or kV according to patient size (this includes techniques or standardized protocols for targeted exams where dose is matched to indication/reason for exam; i.e. extremities or head) *Use of iterative reconstruction technique DLP: 683 mGy-cm FINDINGS: There is no acute intracranial hemorrhage or abnormal extra-axial collection. No intracranial mass effect or midline shift. Lateral and third ventricles are normal. No hydrocephalus. Egan-white matter differentiation is grossly preserved and there is no evidence of acute territorial infarct. The calvarium and skull base are intact. There are trace mastoid tip effusions. Mild to moderate paranasal sinus disease primarily affecting the maxillary sinuses and sphenoid sinus. CT/CT head/brain wo IV con IMPRESSION: Unremarkable CT scan of the head. No evidence of acute territorial infarct or hemorrhage.
--- NOTE | ~2023-08-06 | CT_ITS ---
EXAMINATION: CT ABDOMEN AND PELVIS WITH CONTRAST CLINICAL INFORMATION: Pain COMPARISON: CT from 03/09/2021 TECHNIQUE: Multidetector volumetric images were obtained from the superior aspect of the liver through the pubic symphysis following administration 85 mL of Omnipaque 350 intravenous contrast. Sagittal and coronal reformatted images were obtained on the technologist's workstation. Oral contrast: No This CT examination was performed using dose optimization techniques as appropriate, variously including the following: *Automated exposure control *Adjustment of mA and/or kV according to patient size (this includes techniques or standardized protocols for targeted exams where dose is matched to indication/reason for exam; i.e. extremities or head) *Use of iterative reconstruction technique DLP: 528.34 mGy-cm FINDINGS: LUNG BASES: Atelectasis and small airspace consolidations are seen in the bilateral lung bases LIVER, GALLBLADDER, AND BILIARY TREE: The liver is normal in size, shape, and attenuation. No focal hepatic lesion or biliary ductal dilatation is present. The gallbladder is decompressed with no evidence of radiopaque gallstones, gallbladder wall thickening, or obvious pericholecystic inflammatory changes. PANCREAS: Unremarkable. SPLEEN: Small scattered calcified granulomas seen ADRENAL GLANDS: Unremarkable. KIDNEYS AND URETERS: The kidneys are normal in size, shape, and attenuation. No hydronephrosis, hydroureter, or calculi seen. No perinephric stranding. BLADDER: Unremarkable. GASTROINTESTINAL TRACT: The small and large bowel are unremarkable. The appendix is unremarkable. ABDOMINAL WALL: No significant hernia is appreciated. LYMPH NODES: Normal. VASCULAR: Extensive diffuse atherosclerotic wall calcifications throughout the abdominal aorta, iliac arteries and branch vessels. PELVIC VISCERA: Unremarkable. OSSEOUS STRUCTURES: Diffuse degenerative disc disease seen of the lumbar spine. CT/CT abdomen pelvis w IV con IMPRESSION: 1. No acute process. 2. Atelectasis and small airspace consolidations in the bilateral lung bases. 3. Extensive atherosclerotic disease. Fleischner guidelines were followed.
--- NOTE | ~2023-08-06 | XR_ITS ---
EXAMINATION: XR CHEST CLINICAL INFORMATION: Shortness of breath COMPARISON: Chest x-ray of 01/08/2015 TECHNIQUE: Frontal view of the chest was obtained. FINDINGS: Cardiomediastinal silhouette is stable and normal. Diffuse interstitial and scattered faint patchy airspace opacities are noted in the lungs. The lungs are mildly hypoexpanded. No significant pleural effusions or pneumothorax are seen. XR/XR chest 1V IMPRESSION: Diffuse interstitial and faint patchy airspace opacities. Potential possibilities include infectious/inflammatory process versus pulmonary edema. Recommend clinical correlation.
--- NOTE | 2023-08-06 19:55 | PC.NURSE ---
unable to get an accurate temp/o2 sat in triage, started on 2 L O2 via NC per provider, provider transported to room in main ED.
--- NOTE | 2023-08-06 19:56 | ECG_ITS ---
Test Reason : TACARDYA Blood Pressure : / mmHG Vent. Rate : 128 BPM Atrial Rate : 128 BPM P-R Int : 128 ms QRS Dur : 090 ms QT Int : 304 ms P-R-T Axes : 053 050 -26 degrees QTc Int : [address] & T wave abnormality, consider inferior ischemia Abnormal ECG When compared with ECG of 08-JAN-2015 12:49, Premature ventricular complexes are no longer Present Vent. rate has increased BY 49 BPM T wave inversion now evident in Inferior leads Referred By: Jackeline King Electronically Signed By:FITO BRYANT MD
--- NOTE | 2023-08-06 19:57 | ED.WEAKNESS ---
HPI - Weakness General Chief complaint: Altered Mental Status Stated complaint: flu over 1wk Time Seen by Provider: 08/06/23 20:31 Source: patient, family (Sister), RN notes reviewed and old records reviewed Mode of arrival: ambulatory Limitations: altered mental status History of Present Illness HPI Narrative: 67-year-old male with past medical history significant for alcoholic cirrhosis, hypertension presents for evaluation of confusion. The patient reports that he had the flu 2-3 weeks ago. He reports not feeling well since then Per the patient's sister, the patient's seemed to get much worse 4 or 5 days ago with increased breathing rate and weakness. He has fallen a few times at home Per family, the patient seemed confused today, did not recognize family members and has been speaking nonsense at times He has not had any facial droop, focal weakness or slurred speech You the patient denies any pain but states ?I feel awful. ? He endorses weakness, dizziness, cough, shortness of breath Related Data Previous Rx's ?Medication ?Instructions ?Recorded furosemide 20 mg tablet 20 mg PO DAILY #30 tabs 03/12/21 omeprazole 20 mg capsule,delayed 20 mg PO BID@0630,1630 #60 caps 03/12/21 release spironolactone 25 mg tablet 25 mg PO DAILY #30 tabs 03/12/21 Allergies Allergy/AdvReac Type Severity Reaction Status Date / Time No Known Allergies Allergy Verified 08/06/23 20:06 [No Known Allergies*] Review of Systems Constitutional: Constitutional: Reports body ache(s), Reports chills, Reports fatigue, Reports fever(s), Reports frequent falls, Reports lethargy, Reports poor appetite, Reports weakness and Reports weight loss ENT: Denies sore throat Cardiovascular: Cardiovascular: Denies chest pain and Reports dyspnea Respiratory: Respiratory: Reports cough and Reports dyspnea Gastrointestinal: Gastrointestinal: Denies abdominal pain, Denies nausea and Denies vomiting Genitourinary: Genitourinary: Denies dysuria Musculoskeletal: Musculoskeletal: Denies back pain Integumentary/Breasts: Skin/Breast: Denies rash Neurologic: Reports frequent falls and Reports weakness Endocrine: Endocrine: Reports fatigue PMFSH Past Medical History Medical History Smoker History of sigmoidoscopy Liver disease, alcoholic Alcohol abuse Hypertension Hypercholesterolemia Left ventricular hypertrophy Aortic root dilatation Surgical History History of surgery of head H/O colonoscopy History of esophagogastroduodenoscopy (EGD) Social History Social History Household Members: Family Housing: House Do you presently have visiting nurse or other home services: No Alcohol intake: current Alcohol intake frequency: a few times a week Alcohol type: beer and hard liquor Patient Tobacco Use Status: Current everyday Tobacco user Tobacco use type: Cigarette Cigarettes Per Day: 7 Years Smoked: 55 Second Hand Smoke Exposure: No Substance Use Type: Marijuana Advance Directives: No Advance Directives Information Provided: Yes service: Yes Current occupational status: retired Physical Exam Vital Signs: Vital Signs: Last Vital Signs Temp 101.4 F H 08/07/23 00:06 Pulse 102 H 08/07/23 00:06 Resp 32 H 08/07/23 00:06 BP 103/58 L 08/07/23 00:06 Pulse Ox 95 08/07/23 00:06 O2 Del Method Nasal Cannula 08/07/23 00:06 O2 Flow Rate 2 08/07/23 00:06 BMI result Body Mass Index 21.4 Const: General: alert and awake Nutritional Appearance: thin Orientation/consciousness: patient oriented x3 HEENT: Head: Yes normocephalic and Yes atraumatic Throat: Yes posterior oropharynx normal Eyes: Eyelids: Yes eyelids normal Conjunctivae: conjunctivae normal Sclerae: scleral abnormal (Possible faint bilateral scleral icterus) Corneas: corneas normal Pupils: Equal, round and reactive pupils present EOM: EOMs intact bilaterally Neck: Neck: Yes full ROM Resp: Effort & Inspection: abnormal respiratory effort, no audible wheezes, Actively coughing, no stridor, tachypneic, no tracheal deviation and no tripod positioning Auscultation: clear to auscultation bilaterally Cardio: Other: No lower extremity edema Rate: tachycardic Rhythm: regular rhythm GI: Inspection: No distended Palpation (GI): Soft to palpation, nontender, no guarding and not rigid Skin: General skin exam: no rashes or lesions noted Neuro: General: patient oriented x3 Cranial nerves: Yes Equal, round and reactive pupils present and Yes Bilaterally intact EOM present Course Course Course Narrative: This is a Rapid Medical Examination (RME) in triage, full HPI, ROS, assessment and plan per primary provider in the Main ED. 67 yo male with history of alcohol cirrhosis and HTN presenting for evaluation of 1 week of flu like symptoms along with new onset weakness, lethargy and confusion. He is also SOB with minimal PO intake over the last week. Appears weak w/ some scleral icterus. Plan: labs including ammonia, CXR, viral studies Reevaluation(s) Reevaluation #1: Sepsis alert is called. Patient has spiked a temperature of a 102.4?, his lactate was critical at 4.0. Will administer IV fluid bolus at 2 L which is over 30 per kilos for this patient based on weight. He received ceftriaxone azithromycin already, most likely diagnosis at this time is pneumonia given the shortness of breath, cough and recent influenza. Chest x-ray also shows concern for pneumonia versus pulmonary edema. Pulmonary edema is her to be less likely as clinically the patient is dry. Will repeat the patient's magnesium which is low at 1.3. Patient is febrile as documented above. Unfortunately, the patient does have history of liver failure and alcohol abuse so we will hold Tylenol. I have a very low suspicion for intracranial hemorrhage, I think his confusion is more related to sepsis, therefore we will treat his fever with ketorolac/NSAIDs. Time: 21:33 Reevaluation #2: Patient's mental status unchanged, he did spike a higher fever. He had a brief episode of hypotension which improved after IV fluid resuscitation. Patient's mental status is unchanged Time: 22:30 Reevaluation #3: Patient's fever was improved with ketorolac, however he is becoming febrile again. Again we can not give acetaminophen. Will give aspirin 325 mg once. There is no evidence of intracranial hemorrhage on CT scan. The patient has no other sign of bleeding or hemorrhage. Still awaiting for official CT scan report of chest and abdomen, but again it appears to be pneumonia by my read Time: 00:28 Medications Administered Discontinued Medications Generic Name Dose Route Start Last Admin Trade Name Freq PRN Reason Stop Dose Admin Sodium Chloride 1,000 mls @ 999 mls/hr 08/06/23 20:30 08/06/23 21:27 Ns IVCONT 08/06/23 21:30 Infused .Q1H1M FELY Infusion Sodium Chloride 1,000 mls @ 999 mls/hr 08/06/23 21:00 08/06/23 22:27 Ns IV 08/06/23 22:00 Infused .Q1H1M FELY Infusion Ceftriaxone Sodium 1 gm/ 50 mls @ 100 mls/hr 08/06/23 20:50 08/06/23 21:27 Sodium Chloride IV 08/06/23 21:19 Infused ONCE ONE Infusion Azithromycin 500 mg/ Sodium 250 mls @ 125 mls/hr 08/06/23 20:50 08/06/23 23:23 Chloride IV 08/06/23 22:49 Infused ONCE ONE Infusion Magnesium Sulfate 2 gm in 50 mls @ 150 mls/hr 08/06/23 23:32 08/07/23 00:05 Magnesium Sulfate/H2o IV 08/06/23 23:51 Infused ONCE ONE Infusion Iohexol 65 ml 08/06/23 22:10 08/06/23 22:11 Iohexol 350 Mg/Ml 100 Ml Infus..Btl IV 08/06/23 22:11 65 ml ONCE ONE Administration Ketorolac Tromethamine 15 mg 08/06/23 21:32 08/06/23 21:39 Ketorolac Tromethamine 15 Mg/Ml Vial IVPUSH 08/06/23 21:33 15 mg ONCE ONE Administration Medical Decision Making Medical Decision Making MDM Narrative: 67-year-old male presents for evaluation of multiple complaints. Per family he has been somewhat confused. He was just wanting to all my questions appropriately, but apparently did not recognize his nieces and nephews earlier today. However he is tachycardic to 135. This appears sinus on the EKG in the monitor. He is tachypneic and he was hypoxic in triage. He is 95% on 4 L via nasal cannula. At this time the most likely diagnosis is sepsis related to pneumonia. He has a history of liver cirrhosis, and ammonia was ordered. We will treat with IV fluids, ceftriaxone and azithromycin for presumed pneumonia. SBP etc. to be less likely as the patient is nontender to palpation of the abdomen Differential Diagnosis Differential Diagnoses: The differential diagnosis associated with the presentation includes Sepsis Severe sepsis Community-acquired pneumonia Upper respiratory infection Influenza Liver cirrhosis Post viral pneumonia SBP Admission/Observation Consideration of admission/observation: Escalation of care including admission/observation considered Patient will require admission for severe sepsis Lab Data [facility] Lab Attestation statement: I reviewed the patient's lab results. Patient's sodium is low at 124, potassium within normal limits at 3.7. Chloride is low at 90, CO2 is low at 20. Renal function within normal limits. Glucose is elevated to 129. Patient is noted to have a 08/06/23 23:00 08/06/23 20:57 Labs: Lab Results 08/06/23 08/06/23 08/06/23 Range/Units 20:23 20:34 20:57 WBC (4.8-10.8) X10*3/uL RBC (4.60-5.80) X10*6/uL Hgb (14.0-18.0) g/dl Hct (42.0-52.0) % MCV (80.0-98.0) fL MCH (27.0-33.0) pg MCHC (31.0-36.0) g/dl RDW (11.0-16.0) % Plt Count (160-400) X10*3/uL MPV (9.4-12.4) fL Immature Gran % (Auto) (0.0-0.4) % Neut % (Auto) (45-73) % Lymph % (Auto) (20-40) % [place] % (Auto) (2-11) % Eos % (Auto) (0-4) % Baso % (Auto) (0-2) % Lymph # (Auto) (1.2-4.9) X10*3/uL [place] # (Auto) (0.1-1.2) X10*3/uL Eos # (Auto) (0.0-0.4) X10*3/uL Baso # (Auto) (0.0-0.2) X10*3/uL Abs Immat Gran (auto) (0.00-0.03) X10*3/uL Absolute Neuts (auto) (2.0-8.3) x10*3/uL Absolute Nucleated RBC (0.0-0.012) X10*3/uL Nucleated RBC % (auto) (0.0-0.2) /100WBC Smear Tech's Comments PT 16.2 H D (11.1-13.3) SEC INR 1.3 H (0.9-1.1) APTT 33.1 (26.0-36.8) SEC VBG pH 7.42 (7.32-7.43) VBG pCO2 28 mmHg VBG pO2 35 mmHg VBG HCO3 18 L (22-26) mmol/L VBG O2 Saturation 50.0 % VBG Base Excess -3.8 mmol/L Sodium 124 L (135-145) mmol/L Potassium 3.7 (3.3-5.1) mmol/L Chloride 90 L (96-108) mmol/L Carbon Dioxide 20 L (22-29) mmol/L Anion Gap 18 (12-20) BUN 12 (9-16) mg/dL Creatinine 0.88 (0.5-1.4) mg/dL Estim Creat Clear Calc 77.8 Estimated GFR > 60 Random Glucose 129 H (60-115) mg/dL Lactic Acid 4.0 H* (0.5-2.0) mmol/L Lactic Acid F/U @ 2Hr (0.5-2.0) mmol/L Calcium 8.3 L (8.4-10.2) mg/dL Magnesium 1.3 L* (1.6-2.6) mg/dL Total Bilirubin 3.2 H (0.0-1.0) mg/dL Direct Bilirubin 2.2 H (0.0-0.5) mg/dL AST 370 H (5-37) U/L ALT 311 H (0-40) U/L Alkaline Phosphatase 81 (39-117) U/L Ammonia 29 (13-55) umol/L Troponin I High Sens 20.5 (<3.5-35.0) ng/L B-Natriuretic Peptide 223 H (<100) pg/mL Total Protein 6.4 L (6.5-8.0) g/dL Albumin 2.9 L (3.5-5.0) g/dL TSH 0.46 (0.32-4.0) uIU/mL Urine Color Urine Appearance Urine pH (5.0-9.0) Ur Specific [place] (1.005-1.025) Urine Protein (Neg-Trace) mg/dL Urine Glucose (UA) (Negative) mg/dL Urine Ketones (Negative) mg/dL Urine Blood (Negative) Urine Nitrite (Negative) Ur Leukocyte Esterase (Negative) Urine RBC (0-2) /HPF Urine WBC (0-5) /HPF Ur Squamous Epith Cells (0-2) /HPF Urine Bacteria (None Seen) Hyaline Casts (0-2) /LPF Urine Opiates Screen (Not Detect) Urine Fentanyl Screen (Not Detect) Ur Barbiturates Screen (Not Detect) Ur Phencyclidine Scrn (Not Detect) Ur Amphetamines Screen (Not Detect) U Benzodiazepines Scrn (Not Detect) Urine Cocaine Screen (Not Detect) U Marijuana (THC) Screen (Not Detect) Ethyl Alcohol < 10 mg/dL Influenza Type A (PCR) NEGATIVE (Negative) Influenza Type B (PCR) NEGATIVE (Negative) RSV RNA Qual (PCR) NEGATIVE (Negative) SARS-CoV-2 RNA (RT-PCR) NEGATIVE (Negative) 08/06/23 08/06/23 08/06/23 Range/Units 22:26 23:00 23:18 WBC 17.3 H (4.8-10.8) X10*3/uL RBC 3.65 L D (4.60-5.80) X10*6/uL Hgb 12.0 L D (14.0-18.0) g/dl Hct 32.5 L D (42.0-52.0) % MCV 89.0 (80.0-98.0) fL MCH 32.9 (27.0-33.0) pg MCHC 36.9 H (31.0-36.0) g/dl RDW 11.9 (11.0-16.0) % Plt Count 152 L D (160-400) X10*3/uL MPV 10.1 (9.4-12.4) fL Immature Gran % (Auto) 0.5 H (0.0-0.4) % Neut % (Auto) 93.0 H (45-73) % Lymph % (Auto) 2.8 L (20-40) % [place] % (Auto) 3.4 (2-11) % Eos % (Auto) 0.1 (0-4) % Baso % (Auto) 0.2 (0-2) % Lymph # (Auto) 0.5 L (1.2-4.9) X10*3/uL [place] # (Auto) 0.6 (0.1-1.2) X10*3/uL Eos # (Auto) 0.0 (0.0-0.4) X10*3/uL Baso # (Auto) 0.0 (0.0-0.2) X10*3/uL Abs Immat Gran (auto) 0.09 H (0.00-0.03) X10*3/uL Absolute Neuts (auto) 16.1 H (2.0-8.3) x10*3/uL Absolute Nucleated RBC 0.000 (0.0-0.012) X10*3/uL Nucleated RBC % (auto) 0.0 (0.0-0.2) /100WBC Smear Tech's Comments VERIFIED PT (11.1-13.3) SEC INR (0.9-1.1) APTT (26.0-36.8) SEC VBG pH (7.32-7.43) VBG pCO2 mmHg VBG pO2 mmHg VBG HCO3 (22-26) mmol/L VBG O2 Saturation % VBG Base Excess mmol/L Sodium (135-145) mmol/L Potassium (3.3-5.1) mmol/L Chloride (96-108) mmol/L Carbon Dioxide (22-29) mmol/L Anion Gap (12-20) BUN (9-16) mg/dL Creatinine (0.5-1.4) mg/dL Estim Creat Clear Calc Estimated GFR Random Glucose (60-115) mg/dL Lactic Acid (0.5-2.0) mmol/L Lactic Acid F/U @ 2Hr 1.3 (0.5-2.0) mmol/L Calcium (8.4-10.2) mg/dL Magnesium (1.6-2.6) mg/dL Total Bilirubin (0.0-1.0) mg/dL Direct Bilirubin (0.0-0.5) mg/dL AST (5-37) U/L ALT (0-40) U/L Alkaline Phosphatase (39-117) U/L Ammonia (13-55) umol/L Troponin I High Sens (<3.5-35.0) ng/L B-Natriuretic Peptide (<100) pg/mL Total Protein (6.5-8.0) g/dL Albumin (3.5-5.0) g/dL TSH (0.32-4.0) uIU/mL Urine Color Dark Yellow Urine Appearance Cloudy Urine pH 6.0 (5.0-9.0) Ur Specific [place] 1.015 (1.005-1.025) Urine Protein 30 (1+) H (Neg-Trace) mg/dL Urine Glucose (UA) Negative (Negative) mg/dL Urine Ketones Negative (Negative) mg/dL Urine Blood Moderate (2+) H (Negative) Urine Nitrite Negative (Negative) Ur Leukocyte Esterase Small (1+) H (Negative) Urine RBC 3-5 H (0-2) /HPF Urine WBC 6-10 H (0-5) /HPF Ur Squamous Epith Cells >20 (0-2) /HPF Urine Bacteria None Seen (None Seen) Hyaline Casts 3-5 (0-2) /LPF Urine Opiates Screen Not Detected (Not Detect) Urine Fentanyl Screen Not Detected (Not Detect) Ur Barbiturates Screen Not Detected (Not Detect) Ur Phencyclidine Scrn Not Detected (Not Detect) Ur Amphetamines Screen Not Detected (Not Detect) U Benzodiazepines Scrn Not Detected (Not Detect) Urine Cocaine Screen Not Detected (Not Detect) U Marijuana (THC) Screen POSITIVE H (Not Detect) Ethyl Alcohol mg/dL Influenza Type A (PCR) (Negative) Influenza Type B (PCR) (Negative) RSV RNA Qual (PCR) (Negative) SARS-CoV-2 RNA (RT-PCR) (Negative) Independent Interpretation I performed an independent interpretation of an: EKG (Sinus tachycardia with a rate of 128 beats minute.), Plain X-Ray (Diffuse infiltrate versus pulmonary edema. There are no pleural effusions) and CT Scan (Bilateral, primarily bibasilar infiltrate) Critical Care Time Critical Care Time Critical Care Time: Yes Total Critical Care Time: 50 Attestation: 67-year-old male presents for evaluation of severe sepsis. Patient had broad workup and was treated with broad-spectrum antibiotics, IV fluid resuscitation. Multiple re-evaluations Discharge Plan Discharge Clinical Impression: Severe sepsis, Community acquired pneumonia Patient Disposition: Admitted As Inpatient Print Language: Albanian
[2023-08-06] MEDS: 0.9 % Sodium Chloride 1,000 ML 999 ML IVCONT (20:25)
[2023-08-06 20:39] LABS: Venous Blood Gas Refer to POC result
[2023-08-06 20:40] LABS: VBG Base Excess -3.8 mmol/L; VBG HCO3 18 mmol/L (22-26); VBG pCO2 28 mmHg; VBG pH 7.42 (7.32-7.43); VBG pO2 35 mmHg
[2023-08-06 20:45] LABS: Ammonia 29 umol/L (13-55)
[2023-08-06 20:46] LABS: INTERNATIONAL NORM RATIO 1.3 (0.9-1.1); Prothrombin Time 16.2 SEC (11.1-13.3)
[2023-08-06 20:48] LABS: Partial Thromboplastin Time 33.1 SEC (26.0-36.8)
[2023-08-06 20:57] LABS: B Type Natriuretic Peptide 223 pg/mL (<100)
[2023-08-06] MEDS: cefTRIAXone sodium 1 GM in 0.9 % Sodium Chloride 50 ML IV (21:01)
[2023-08-06 21:13] LABS: TSH reflex Free T4 0.46 uIU/mL (0.32-4.0)
[2023-08-06 21:20] LABS: Influenza A PCR NEGATIVE (Negative); Influenza B PCR NEGATIVE (Negative); Resp Syncy Virus RNA Qual PCR NEGATIVE (Negative); SARS COV2 PCR INHOUSE NEGATIVE (Negative)
[2023-08-06] MEDS: 0.9 % Sodium Chloride 1,000 ML 999 ML IV (21:25)
[2023-08-06 21:27] LABS: Alanine Aminotransferase 311 U/L (0-40); Albumin Level 2.9 g/dL (3.5-5.0); Alkaline Phosphatase 81 U/L (39-117); Anion Gap 18 (12-20); Aspartate Amino Transferase 370 U/L (5-37); Bilirubin Direct 2.2 mg/dL (0.0-0.5); Bilirubin Total 3.2 mg/dL (0.0-1.0); Blood Urea Nitrogen 12 mg/dL (9-16); Calcium 8.3 mg/dL (8.4-10.2); Carbon Dioxide 20 mmol/L (22-29); Chloride 90 mmol/L (96-108); Creatinine Clr Calc Pharmacy 77.8; Estimated Glomerular Filt Rate > 60; Ethanol < 10 mg/dL; Glucose Random 129 mg/dL (60-115); Magnesium 1.3 mg/dL (1.6-2.6); Potassium 3.7 mmol/L (3.3-5.1); Sodium 124 mmol/L (135-145); Total Protein 6.4 g/dL (6.5-8.0)
[2023-08-06 21:30] LABS: Troponin-I High Sensitivity 20.5 ng/L (<3.5-35.0)
[2023-08-06] MEDS: Azithromycin 500 MG in 0.9 % Sodium Chloride 250 ML 125 MG IV (21:31)
[2023-08-06] MEDS: Ketorolac Tromethamine 15 MG/ML VIAL IVPUSH (21:39)
[2023-08-06] MEDS: iohexoL 350 MG/ML 100 ML INFUS..BTL 65 ML IV (22:11)
--- NOTE | 2023-08-06 22:12 | PC.NURSE ---
sodium 134 , administered 1200 ml of IV fluids not the bolus of 2 so not to increase NA too fast
[2023-08-06 22:37] LABS: Appearance Urine Cloudy; Color Urine Dark Yellow; Glucose Urine UA Negative (Negative); Leukocyte Esterase Urine Small (1+) (Negative); Nitrite Urine Negative (Negative); Specific Gravity - Urine 1.015 (1.005-1.025); UMIC TRIGGER UACC YES; Urine Blood Moderate (2+) (Negative); Urine Ketones Negative (Negative); Urine Protein 30 (1+) mg/dL (Neg-Trace)
[2023-08-06 22:50] LABS: Bacteria Urine None Seen (None Seen); Squamous Epithelial Cell Urine >20 /HPF (0-2); UACC Culture Trigger YES
[2023-08-06 23:01] LABS: Reflex Lactate? Lactic Acid Added
[2023-08-06 23:01] LABS: Amphetamine Screen Urine Not Detected (Not Detect); Barbiturates, Urine Not Detected (Not Detect); Benzodiazepines Screen Urine Not Detected (Not Detect); Cannabinoid Screen Urine POSITIVE (Not Detect); Cocaine Screen Urine Not Detected (Not Detect); Fentanyl, urine Not Detected (Not Detect); Opiate Screen Urine Not Detected (Not Detect); Phencyclidine Screen Urine Not Detected (Not Detect)
[2023-08-06 23:07] LABS: Basophils Percent Auto 0.2 % (0-2); Eosinophils Percent Auto 0.1 % (0-4); Hematocrit 32.5 % (42.0-52.0); Imm Gran Abs Auto 0.09 X10*3/uL (0.00-0.03); Imm Gran Pct Auto 0.5 % (0.0-0.4); Lymphocytes Absolute Auto 0.5 X10*3/uL (1.2-4.9); Lymphocytes Percent Auto 2.8 % (20-40); MANUAL DIFF FLAG SCAN; Mean Corpuscular HGB Conc 36.9 g/dl (31.0-36.0); Mean Corpuscular Hemoglobin 32.9 pg (27.0-33.0); Mean Platelet Volume 10.1 fL (9.4-12.4); Monocytes Absolute Auto 0.6 X10*3/uL (0.1-1.2); Monocytes Percent Auto 3.4 % (2-11); Neutrophils Absolute Auto 16.1 x10*3/uL (2.0-8.3); Platelet Count 152 X10*3/uL (160-400); Red Blood Count 3.65 X10*6/uL (4.60-5.80); Red Cell Distribution Width 11.9 % (11.0-16.0); SCAN SMEAR FLAG 1; White Blood Count 17.3 X10*3/uL (4.8-10.8)
[2023-08-06 23:32] LABS: SLIDE REVIEW VERIFIED
[2023-08-06 23:34] LABS: ~Lactic Acid-LAB USE ONLY 1.3 mmol/L (0.5-2.0)
[2023-08-06] MEDS: Magnesium Sulfate/H2O 2 GM/50 ML PIGGYBACK IV (23:41)
[2023-08-07] VITALS (12 sets, daily range): BP systolic 98–116; BP diastolic 51–65; PULSE 81–108; RESP 16–98; TEMP 36.4–38.8; O2SAT 94–99
[2023-08-07] MEDS: Aspirin 325 MG TABLET PO (00:39)
[2023-08-07] MEDS: Lactated Ringers 1,000 ML 125 ML IVCONT ×3 (02:51→20:49)
[2023-08-07 04:36] LABS: MANUAL DIFF FLAG NO
[2023-08-07 04:53] LABS: Basophils Percent Auto 0.2 % (0-2); Eosinophils Percent Auto 0.2 % (0-4); Hematocrit 35.2 % (42.0-52.0); Hemoglobin 12.9 g/dl (14.0-18.0); Imm Gran Abs Auto 0.16 X10*3/uL (0.00-0.03); Imm Gran Pct Auto 0.8 % (0.0-0.4); Lymphocytes Absolute Auto 0.7 X10*3/uL (1.2-4.9); Lymphocytes Percent Auto 3.7 % (20-40); Mean Corpuscular HGB Conc 36.6 g/dl (31.0-36.0); Mean Corpuscular Hemoglobin 32.7 pg (27.0-33.0); Mean Corpuscular Volume 89.3 fL (80.0-98.0); Mean Platelet Volume 10.5 fL (9.4-12.4); Monocytes Absolute Auto 1.4 X10*3/uL (0.1-1.2); Neutrophils Absolute Auto 17.1 x10*3/uL (2.0-8.3); Neutrophils Percent Auto 88.1 % (45-73); Platelet Count 147 X10*3/uL (160-400); Red Blood Count 3.94 X10*6/uL (4.60-5.80); Red Cell Distribution Width 11.8 % (11.0-16.0); White Blood Count 19.4 X10*3/uL (4.8-10.8)
--- NOTE | 2023-08-07 05:31 | PC.NURSE ---
pt lives at home alone with family checking in on him, family arrived to his home and he appeared AMS . Had flu 2 weeks ago . PMH HTN, alcoholic cirrhosis. ( Pt reports has not had a drink in over a month). Pt desat in triage and was placed on 2L O2 and is at 95. Sepsis protocol initiated in ED as pt was tachy at 135 , lactic 4.0 and temp of 103. Currently he is afebrile and vitals are wnl with mild hypotensive. CT showed pneumonia and pt treated with antibiotics. NA was 124, mag 1.3 ( replaced). IMC, Regular diet. IV asses 20 in R /L AC
--- NOTE | 2023-08-07 06:43 | P.HPHOSP_ITS ---
History of Present Illness Date of Service: 08/07/23 Attending physician on admission: Kourtney Cox Chief Complaint: Shortness on breath Shay Varner is a 67 years old man with past medical history significant alcohol abuse presents to the emergency department complaining of one-week history of worsening shortness of breath, diarrhea, productive cough and generalized weakness. He denies fever or chills. Denies abdominal pain or diarrhea. Did not report any acute urinary symptoms. According to ED triage note patient was found to be confused and diaphoretic by the family members. Patient is tobacco smoker. Last time he smoked and drank alcohol was about 2 weeks ago. In the ED, he was found to have fever, tachycardia and tachypnea. Blood pressure has been soft. Last blood pressure is 111/60. He was hypoxic on arrival and currently requiring 2 L/min supplemental oxygen via nasal cannula. Head, chest, abdomen, pelvis CT scans are unremarkable (liver is normal) except for findings concerning for infectious/inflammatory process such as bronchopneumonia. Blood workup was remarkable for leukocytosis of 17.3. There is a mild degree of anemia and thrombocytopenia which i are baseline. There is hyponatremia and hypomagnesemia. Bicarb is slightly low. Renal function is adequate. LFTs are elevated. BNP is elevated. TSH is normal. Venous blood gas showed no respiratory acidosis. Urinalysis consistent with urinary tract infection. ED tx: NS 2 L bolus, ceftriaxone 1 g IV, azithromycin 500 mg IV, ketorolac 15 mg IV, aspirin 325 mg PO x1, magnesium sulfate 2 mg IV. Review of Systems 2 Review of Systems: All 12 systems were reviewed and normal except as noted in HPI. [facility] Medical History Smoker History of sigmoidoscopy Liver disease, alcoholic Alcohol abuse Hypertension Hypercholesterolemia Left ventricular hypertrophy Aortic root dilatation Surgical History History of surgery of head H/O colonoscopy History of esophagogastroduodenoscopy (EGD) Social History Household Members: Family Housing: House Do you presently have visiting nurse or other home services: No Alcohol intake: current Alcohol intake frequency: a few times a week Alcohol type: beer and hard liquor Patient Tobacco Use Status: Former Tobacco user Tobacco use type: Cigarette Cigarettes Per Day: 7 Years Smoked: 55 Second Hand Smoke Exposure: No Substance Use Type: Marijuana Advance Directives: No Advance Directives Information Provided: Yes Nutrition Risks: No Nutritional Risk service: Yes Current occupational status: retired Meds Allergies Allergy/AdvReac Type Severity Reaction Status Date / Time No Known Allergies Allergy Verified 08/06/23 20:06 [No Known Allergies*] Active Medications: Current Medications Albuterol Sulfate (Albuterol Sulfate 90 Mcg 8 Gm Inhaler) 4 puff INHALE RQ4H WHILE AWAKE [facility] Lactated Ringer's (Lr) 1,000 mls @ 125 mls/hr IVCONT .Q8H [facility] Last Admin: 08/07/23 02:51 Dose: 125 mls/hr Azithromycin 500 mg/ Sodium (Chloride) 250 mls @ 125 mls/hr IV Q24H [facility] Ceftriaxone Sodium 1 gm/ (Sodium Chloride) 50 mls @ 100 mls/hr IV Q24H [facility] Ibuprofen (Ibuprofen 200 Mg Tablet) 200 mg PO Q6H PRN PRN Reason: fever Pharmacy Consult (Consult Rx Vancomycin Dosing) 1 each MISCELLANE DAILY PRN PRN Reason: Consult order Sodium Chloride (0.9 % Sodium Chloride Flush 3 Ml Syringe) 3 ml IVFLUSH QSHIFT [facility] Physical Exam 2 Vital Signs and Narrative: Vital Signs: Last Vital Signs Temp 97.5 F 08/07/23 06:21 Pulse 88 08/07/23 06:21 Resp 20 08/07/23 06:21 BP 111/60 08/07/23 06:21 Pulse Ox 95 08/07/23 06:21 O2 Del Method Nasal Cannula 08/07/23 06:21 O2 Flow Rate 2 08/07/23 06:21 BMI result Body Mass Index 21.4 Constitutional - Awake and Alert, No apparent distress. Acutely ill. HEENT - Pupils equally round. Anicteric sclerae. Dry oral mucosa Heart - RRR. No murmur. Lung - Normal lung expansion, Normal respiratory effort, No respiratory distress. Tachypnea. Bilateral rhonchi. Abdomen - NT / ND; +BS; No rebound or guarding Extremities - no calf tenderness bilaterally, no swelling Musculoskeletal - generalized muscle atrophy. Skin - Warm/Dry. Jaundice. Neurological - Alert & oriented x3. No focal weakness. Normal speech. Psychological - Appropriate affect Results Labs 08/07/23 04:28 08/06/23 20:57 Labs: Laboratory Results - last 24 hr 08/06/23 08/06/23 08/06/23 20:23 20:34 20:57 MCV MCH MCHC RDW Plt Count MPV Immature Gran % (Auto) Neut % (Auto) Lymph % (Auto) [place] % (Auto) Eos % (Auto) Baso % (Auto) Lymph # (Auto) [place] # (Auto) Eos # (Auto) Baso # (Auto) Abs Immat Gran (auto) Absolute Neuts (auto) Absolute Nucleated RBC Nucleated RBC % (auto) Smear Tech's Comments PT 16.2 H D INR 1.3 H APTT 33.1 VBG pH 7.42 VBG pCO2 28 VBG pO2 35 VBG HCO3 18 L VBG O2 Saturation 50.0 VBG Base Excess -3.8 Anion Gap 18 Estim Creat Clear Calc 77.8 Estimated GFR > 60 Random Glucose 129 H Lactic Acid 4.0 H* Lactic Acid F/U @ 2Hr Calcium 8.3 L Magnesium 1.3 L* Total Bilirubin 3.2 H Direct Bilirubin 2.2 H AST 370 H ALT 311 H Alkaline Phosphatase 81 Ammonia 29 Troponin I High Sens 20.5 B-Natriuretic Peptide 223 H Total Protein 6.4 L Albumin 2.9 L TSH 0.46 Urine Color Urine Appearance Urine pH Ur Specific Supply Urine Protein Urine Glucose (UA) Urine Ketones Urine Blood Urine Nitrite Ur Leukocyte Esterase Urine RBC Urine WBC Ur Squamous Epith Cells Urine Bacteria Hyaline Casts Urine Opiates Screen Urine Fentanyl Screen Ur Barbiturates Screen Ur Phencyclidine Scrn Ur Amphetamines Screen U Benzodiazepines Scrn Urine Cocaine Screen U Marijuana (THC) Screen Ethyl Alcohol < 10 Influenza Type A (PCR) NEGATIVE Influenza Type B (PCR) NEGATIVE RSV RNA Qual (PCR) NEGATIVE SARS-CoV-2 RNA (RT-PCR) NEGATIVE 08/06/23 08/06/23 08/06/23 22:26 23:00 23:18 MCV 89.0 MCH 32.9 MCHC 36.9 H RDW 11.9 Plt Count 152 L D MPV 10.1 Immature Gran % (Auto) 0.5 H Neut % (Auto) 93.0 H Lymph % (Auto) 2.8 L [place] % (Auto) 3.4 Eos % (Auto) 0.1 Baso % (Auto) 0.2 Lymph # (Auto) 0.5 L [place] # (Auto) 0.6 Eos # (Auto) 0.0 Baso # (Auto) 0.0 Abs Immat Gran (auto) 0.09 H Absolute Neuts (auto) 16.1 H Absolute Nucleated RBC 0.000 Nucleated RBC % (auto) 0.0 Smear Tech's Comments VERIFIED PT INR APTT VBG pH VBG pCO2 VBG pO2 VBG HCO3 VBG O2 Saturation VBG Base Excess Anion Gap Estim Creat Clear Calc Estimated GFR Random Glucose Lactic Acid Lactic Acid F/U @ 2Hr 1.3 Calcium Magnesium Total Bilirubin Direct Bilirubin AST ALT Alkaline Phosphatase Ammonia Troponin I High Sens B-Natriuretic Peptide Total Protein Albumin TSH Urine Color Dark Yellow Urine Appearance Cloudy Urine pH 6.0 Ur Specific Supply 1.015 Urine Protein 30 (1+) H Urine Glucose (UA) Negative Urine Ketones Negative Urine Blood Moderate (2+) H Urine Nitrite Negative Ur Leukocyte Esterase Small (1+) H Urine RBC 3-5 H Urine WBC 6-10 H Ur Squamous Epith Cells >20 Urine Bacteria None Seen Hyaline Casts 3-5 Urine Opiates Screen Not Detected Urine Fentanyl Screen Not Detected Ur Barbiturates Screen Not Detected Ur Phencyclidine Scrn Not Detected Ur Amphetamines Screen Not Detected U Benzodiazepines Scrn Not Detected Urine Cocaine Screen Not Detected U Marijuana (THC) Screen POSITIVE H Ethyl Alcohol Influenza Type A (PCR) Influenza Type B (PCR) RSV RNA Qual (PCR) SARS-CoV-2 RNA (RT-PCR) 08/07/23 04:28 MCV 89.3 MCH 32.7 MCHC 36.6 H RDW 11.8 Plt Count 147 L MPV 10.5 Immature Gran % (Auto) 0.8 H Neut % (Auto) 88.1 H Lymph % (Auto) 3.7 L [place] % (Auto) 7.0 Eos % (Auto) 0.2 Baso % (Auto) 0.2 Lymph # (Auto) 0.7 L [place] # (Auto) 1.4 H Eos # (Auto) 0.0 Baso # (Auto) 0.0 Abs Immat Gran (auto) 0.16 H Absolute Neuts (auto) 17.1 H Absolute Nucleated RBC 0.000 Nucleated RBC % (auto) 0.0 Smear Tech's Comments PT INR APTT VBG pH VBG pCO2 VBG pO2 VBG HCO3 VBG O2 Saturation VBG Base Excess Anion Gap Estim Creat Clear Calc Estimated GFR Random Glucose Lactic Acid Lactic Acid F/U @ 2Hr Calcium Magnesium Total Bilirubin Direct Bilirubin AST ALT Alkaline Phosphatase Ammonia Troponin I High Sens B-Natriuretic Peptide Total Protein Albumin TSH Urine Color Urine Appearance Urine pH Ur Specific Supply Urine Protein Urine Glucose (UA) Urine Ketones Urine Blood Urine Nitrite Ur Leukocyte Esterase Urine RBC Urine WBC Ur Squamous Epith Cells Urine Bacteria Hyaline Casts Urine Opiates Screen Urine Fentanyl Screen Ur Barbiturates Screen Ur Phencyclidine Scrn Ur Amphetamines Screen U Benzodiazepines Scrn Urine Cocaine Screen U Marijuana (THC) Screen Ethyl Alcohol Influenza Type A (PCR) Influenza Type B (PCR) RSV RNA Qual (PCR) SARS-CoV-2 RNA (RT-PCR) Imaging Radiologist's Impressions: Impressions Chest X-Ray 08/06/23 19:55 IMPRESSION: Diffuse interstitial and faint patchy airspace opacities. Potential possibilities include infectious/inflammatory process versus pulmonary edema. Recommend clinical correlation. Head CT 08/06/23 21:57 IMPRESSION: Unremarkable CT scan of the head. No evidence of acute territorial infarct or hemorrhage. Abdomen/Pelvis CT 08/06/23 22:37 IMPRESSION: 1. No acute process. 2. Atelectasis and small airspace consolidations in the bilateral lung bases. 3. Extensive atherosclerotic disease. Fleischner guidelines were followed. Chest CTA 08/06/23 22:37 IMPRESSION: 1. No evidence of acute pulmonary embolus. 2. Peribronchovascular interstitial groundglass nodules and groundglass changes seen within the bilateral upper lobes, right greater than left. Additional small focal areas of airspace consolidations in the bilateral lower lobes, left greater than right. Findings are concerning for infectious/inflammatory process such as bronchopneumonia. VTE: negative. Assessment and Plan (1) Community acquired pneumonia: Qualifiers: Laterality: unspecified laterality Qualified Code(s): J18.9 - Pneumonia, unspecified organism Status: Acute (2) Severe sepsis: Status: Acute (3) Alcoholic cirrhosis of liver with ascites: Status: Acute (4) Electrolyte imbalance: Status: Acute (5) Elevated LFTs: Status: Acute Plan Shay Varner is a 67 years old man with past medical history significant alcohol abuse * Hypoxic respiratory failure secondary to bronchopneumonia. Admit to hospitalist service. Pulse oximetry. Telemetry. Continue supplemental oxygen to keep O2 sats>90%. Continue empiric IV antibiotic therapy with ceftriaxone and azithromycin. Continue bronchodilator therapy. * Severe sepsis criteria likely secondary bacteremia, Gram-positive cocci and bronchopneumonia. IV fluids bolus 30ml/kg given in ED. Add therapy with vancomycin. Continue to monitor lactic acid. Awaiting for susceptibility. * Urinary tract infection. Continue ceftriaxone. Urine culture obtained -will follow results. * Elevated LFTs secondary to alcohol abuse. History of cholelithiasis. Patient was advised to abstain from alcohol consumption. Continue to monitor. Check lipase. Check abdominal ultrasound. * Hyponatremia. Likely secondary to CLD and poor p.o. intake. * Hypomagnesemia. Replete as needed. * Alcoholic liver disease. Start treatment with thiamine, folic acid and multivitamins. * Essential hypertension. Blood pressure is normal. Avoid anti-HTN medications for now. DVT prophylaxis: Heparin Code status: Full Patient will need hospitalization for at least 2 midnights for bronchopneumonia + bacteremia treatment with supplemental oxygen, and IV antibiotics and bronchodilator therapy Quality Stroke Does the patient have a stroke diagnosis?: No VTE Prior VTE?: No VTE Risk Level:: Medical - moderate - high VTE Device Contraindication: Treatment Not Indicated VTE Drug Contraindication: N/A - Med Ordered
[2023-08-07] MEDS: Albuterol Sulfate 90 MCG 8 GM INHALER 4 PUFF INHALE ×3 (07:54→20:15)
[2023-08-07 08:32] LABS: Anion Gap 13 (12-20); Blood Urea Nitrogen 12 mg/dL (9-16); Carbon Dioxide 19 mmol/L (22-29); Chloride 92 mmol/L (96-108); Creatinine Clr Calc Pharmacy 114.1; Estimated Glomerular Filt Rate > 60; Sodium 124 mmol/L (135-145)
[2023-08-07 08:33] LABS: Alanine Aminotransferase 238 U/L (0-40); Albumin Level 2.2 g/dL (3.5-5.0); Aspartate Amino Transferase 255 U/L (5-37); Bilirubin Total 2.1 mg/dL (0.0-1.0); Calcium 7.6 mg/dL (8.4-10.2); Glucose Random 117 mg/dL (60-115); Total Protein 5.3 g/dL (6.5-8.0)
[2023-08-07 08:34] LABS: Alkaline Phosphatase 62 U/L (39-117)
[2023-08-07 08:35] LABS: Lactic Acid 1.1 mmol/L (0.5-2.0)
[2023-08-07] MEDS: Multivitamin TABLET 1 TAB PO (09:01)
[2023-08-07] MEDS: Folic Acid 1 MG TABLET PO (09:01)
[2023-08-07] MEDS: Thiamine HCL 100 MG TABLET PO (09:01)
[2023-08-07] MEDS: vancomycin HCL 1,000 MG, vancomycin HCL 750 MG in 0.9 % Sodium Chloride 500 ML 267.5 MG IV (09:03)
[2023-08-07] MEDS: 0.9 % Sodium Chloride Flush 3 ML SYRINGE IVFLUSH (09:06)
--- NOTE | 2023-08-07 09:32 | PHA.MEDREC ---
Pharmacy Consult ? Medication Reconciliation Pharmacy has completed the medication reconciliation. Patient's niece confirmed meds as she visits patient often.
--- NOTE | 2023-08-07 09:59 | HO.PM.IMPN ---
Subjective Subjective Date of Service: 08/07/23 Interval History: f/u on sepsis, pna, hyponatremia interval he states that he feels much better today Physical Exam Vital Signs: Vital Signs: Last Vital Signs Temp 97.5 F 08/07/23 06:21 Pulse 85 08/07/23 07:55 Resp 18 08/07/23 07:55 BP 111/60 08/07/23 06:21 Pulse Ox 95 08/07/23 06:21 O2 Del Method Nasal Cannula 08/07/23 06:21 O2 Flow Rate 2 08/07/23 06:21 BMI result Body Mass Index 21.4 General: AO X 3, no acute distress Resp: CTA bilateral CVS: S1,S2,RRR GI: +BS, NT, no distention Skin: No rash Neuro: motor grossly intact Psych: appropriate affect Objective Data Active Medications Albuterol Sulfate (Albuterol Sulfate 90 Mcg 8 Gm Inhaler) 4 puff INHALE RQ4H WHILE AWAKE [facility] Last Admin: 08/07/23 07:54 Dose: 4 puff Documented By: KIRBY Folic Acid (Folic Acid 1 Mg Tablet) 1 mg PO DAILY [facility] Last Admin: 08/07/23 09:01 Dose: 1 mg Documented By: BONIFACIO Lactated Ringer's (Lr) 1,000 mls @ 125 mls/hr IVCONT .Q8H [facility] Last Admin: 08/07/23 02:51 Dose: 125 mls/hr Documented By: JOSE M Azithromycin 500 mg/ Sodium (Chloride) 250 mls @ 125 mls/hr IV Q24H [facility] Ceftriaxone Sodium 1 gm/ (Sodium Chloride) 50 mls @ 100 mls/hr IV Q24H [facility] Ibuprofen (Ibuprofen 200 Mg Tablet) 200 mg PO Q6H PRN PRN Reason: fever Multivitamins/Vitamin C (Multivitamin Tablet) 1 tab PO DAILY [facility] Last Admin: 08/07/23 09:01 Dose: 1 tab Documented By: BONIFACIO Pharmacy Consult (Consult Rx Vancomycin Dosing) 1 each MISCELLANE DAILY PRN PRN Reason: Consult order Sodium Chloride (0.9 % Sodium Chloride Flush 3 Ml Syringe) 3 ml IVFLUSH QSHIFT [facility] Last Admin: 08/07/23 09:06 Dose: 3 ml Documented By: BONIFACIO Thiamine HCl (Thiamine Hcl 100 Mg Tablet) 100 mg PO DAILY [facility] Last Admin: 08/07/23 09:01 Dose: 100 mg Documented By: BONIFACIO Labs 08/07/23 04:28 08/07/23 04:28 Labs: Laboratory Results - last 24 hr 08/06/23 08/06/23 08/06/23 20:23 20:34 20:57 MCV MCH MCHC RDW Plt Count MPV Immature Gran % (Auto) Neut % (Auto) Lymph % (Auto) [place] % (Auto) Eos % (Auto) Baso % (Auto) Lymph # (Auto) [place] # (Auto) Eos # (Auto) Baso # (Auto) Abs Immat Gran (auto) Absolute Neuts (auto) Absolute Nucleated RBC Nucleated RBC % (auto) Smear Tech's Comments PT 16.2 H D INR 1.3 H APTT 33.1 VBG pH 7.42 VBG pCO2 28 VBG pO2 35 VBG HCO3 18 L VBG O2 Saturation 50.0 VBG Base Excess -3.8 Anion Gap 18 Estim Creat Clear Calc 77.8 Estimated GFR > 60 Random Glucose 129 H Lactic Acid 4.0 H* Lactic Acid F/U @ 2Hr Calcium 8.3 L Magnesium 1.3 L* Total Bilirubin 3.2 H Direct Bilirubin 2.2 H AST 370 H ALT 311 H Alkaline Phosphatase 81 Ammonia 29 Troponin I High Sens 20.5 B-Natriuretic Peptide 223 H Total Protein 6.4 L Albumin 2.9 L TSH 0.46 Urine Color Urine Appearance Urine pH Ur Specific [place] Urine Protein Urine Glucose (UA) Urine Ketones Urine Blood Urine Nitrite Ur Leukocyte Esterase Urine RBC Urine WBC Ur Squamous Epith Cells Urine Bacteria Hyaline Casts Urine Opiates Screen Urine Fentanyl Screen Ur Barbiturates Screen Ur Phencyclidine Scrn Ur Amphetamines Screen U Benzodiazepines Scrn Urine Cocaine Screen U Marijuana (THC) Screen Ethyl Alcohol < 10 Influenza Type A (PCR) NEGATIVE Influenza Type B (PCR) NEGATIVE RSV RNA Qual (PCR) NEGATIVE SARS-CoV-2 RNA (RT-PCR) NEGATIVE 08/06/23 08/06/23 08/06/23 22:26 23:00 23:18 MCV 89.0 MCH 32.9 MCHC 36.9 H RDW 11.9 Plt Count 152 L D MPV 10.1 Immature Gran % (Auto) 0.5 H Neut % (Auto) 93.0 H Lymph % (Auto) 2.8 L [place] % (Auto) 3.4 Eos % (Auto) 0.1 Baso % (Auto) 0.2 Lymph # (Auto) 0.5 L [place] # (Auto) 0.6 Eos # (Auto) 0.0 Baso # (Auto) 0.0 Abs Immat Gran (auto) 0.09 H Absolute Neuts (auto) 16.1 H Absolute Nucleated RBC 0.000 Nucleated RBC % (auto) 0.0 Smear Tech's Comments VERIFIED PT INR APTT VBG pH VBG pCO2 VBG pO2 VBG HCO3 VBG O2 Saturation VBG Base Excess Anion Gap Estim Creat Clear Calc Estimated GFR Random Glucose Lactic Acid Lactic Acid F/U @ 2Hr 1.3 Calcium Magnesium Total Bilirubin Direct Bilirubin AST ALT Alkaline Phosphatase Ammonia Troponin I High Sens B-Natriuretic Peptide Total Protein Albumin TSH Urine Color Dark Yellow Urine Appearance Cloudy Urine pH 6.0 Ur Specific [place] 1.015 Urine Protein 30 (1+) H Urine Glucose (UA) Negative Urine Ketones Negative Urine Blood Moderate (2+) H Urine Nitrite Negative Ur Leukocyte Esterase Small (1+) H Urine RBC 3-5 H Urine WBC 6-10 H Ur Squamous Epith Cells >20 Urine Bacteria None Seen Hyaline Casts 3-5 Urine Opiates Screen Not Detected Urine Fentanyl Screen Not Detected Ur Barbiturates Screen Not Detected Ur Phencyclidine Scrn Not Detected Ur Amphetamines Screen Not Detected U Benzodiazepines Scrn Not Detected Urine Cocaine Screen Not Detected U Marijuana (THC) Screen POSITIVE H Ethyl Alcohol Influenza Type A (PCR) Influenza Type B (PCR) RSV RNA Qual (PCR) SARS-CoV-2 RNA (RT-PCR) 08/07/23 04:28 MCV 89.3 MCH 32.7 MCHC 36.6 H RDW 11.8 Plt Count 147 L MPV 10.5 Immature Gran % (Auto) 0.8 H Neut % (Auto) 88.1 H Lymph % (Auto) 3.7 L [place] % (Auto) 7.0 Eos % (Auto) 0.2 Baso % (Auto) 0.2 Lymph # (Auto) 0.7 L [place] # (Auto) 1.4 H Eos # (Auto) 0.0 Baso # (Auto) 0.0 Abs Immat Gran (auto) 0.16 H Absolute Neuts (auto) 17.1 H Absolute Nucleated RBC 0.000 Nucleated RBC % (auto) 0.0 Smear Tech's Comments PT INR APTT VBG pH VBG pCO2 VBG pO2 VBG HCO3 VBG O2 Saturation VBG Base Excess Anion Gap 13 Estim Creat Clear Calc 114.1 Estimated GFR > 60 Random Glucose 117 H Lactic Acid 1.1 Lactic Acid F/U @ 2Hr Calcium 7.6 L D Magnesium 2.0 Total Bilirubin 2.1 H Direct Bilirubin AST 255 H ALT 238 H Alkaline Phosphatase 62 D Ammonia Troponin I High Sens B-Natriuretic Peptide Total Protein 5.3 L Albumin 2.2 L D TSH Urine Color Urine Appearance Urine pH Ur Specific [place] Urine Protein Urine Glucose (UA) Urine Ketones Urine Blood Urine Nitrite Ur Leukocyte Esterase Urine RBC Urine WBC Ur Squamous Epith Cells Urine Bacteria Hyaline Casts Urine Opiates Screen Urine Fentanyl Screen Ur Barbiturates Screen Ur Phencyclidine Scrn Ur Amphetamines Screen U Benzodiazepines Scrn Urine Cocaine Screen U Marijuana (THC) Screen Ethyl Alcohol Influenza Type A (PCR) Influenza Type B (PCR) RSV RNA Qual (PCR) SARS-CoV-2 RNA (RT-PCR) Microbiology Microbiology Results: Microbiology 08/06/23 20:57 Blood Culture - Preliminary Blood - Venous Prelim: GPC Gram Stain only 08/06/23 20:23 Blood Culture - Preliminary Blood - Venous Prelim: GPC Gram Stain only Assessment and Plan (1) Community acquired pneumonia: Status: Acute (2) Severe sepsis: Status: Acute (3) Alcoholic cirrhosis of liver with ascites: Status: Acute (4) Electrolyte imbalance: Status: Acute Plan 67/m with alcoholic liver cirrhosis here with sepsis d/t PNA and gram positive cocci bacteremia Acute Hypoxic respiratory failure secondary to bronchopneumonia. -Bronchodialtors -O2 keep sat 88 to 92 -treat underlying sepsis Severe sepsis criteria likely secondary bacteremia, Gram-positive cocci and bronchopneumonia. -received sepsis bolus -continue Ceftriaxone and Vanco -get echo -Infectious disease consultation Urinary tract infection. Continue ceftriaxone. Urine culture obtained -will follow results. Elevated LFTs secondary to alcohol abuse. History of cholelithiasis. Patient is advised to abstain from alcohol consumption. Continue to monitor. Check lipase. Check abdominal ultrasound. Hyponatremia. likely from Hypervolemic state from chronic alcohol liver disease, fluid, restriction, frequent level check and nephrology consultation Hypomagnesemia. Repleted and corrected HTN--hold lisinopril Alcoholic liver disease. Start treatment with thiamine, folic acid and multivitamins. Essential hypertension. Blood pressure is normal. Avoid anti-HTN medications for now. DVT prophylaxis: Heparin Code status: Full need for inpatient for bronchopneumonia + bacteremia treatment with supplemental oxygen, and IV antibiotics and bronchodilator therapy Quality Stroke Does the patient have a stroke diagnosis?: No VTE Prior VTE?: No VTE Risk Level:: Medical - moderate - high VTE Device Contraindication: Treatment Not Indicated VTE Drug Contraindication: N/A - Med Ordered
--- NOTE | 2023-08-07 11:03 | PC.NURSE ---
Spoke to sister Viky and update given with permission of pt.
[2023-08-07 11:05] LABS: Lipase 12 U/L (8-78)
--- NOTE | 2023-08-07 11:05 | PHA.PROG ---
Admission Date/Time: August 07, 2023 02:38 Indication: BACTEREMIA Weight in k.771 kg Serum Creatinine - Last 168 Hours 08/06/23 08/07/23 20:57 04:28 Creatinine 0.88 0.60 Estimated CrCl and GFR - Last 168 Hours 08/06/23 08/07/23 20:57 04:28 Estim Creat Clear Calc 77.8 114.1 Estimated GFR > 60 > 60 Vancomycin Loading Dose: 1750 Current Vancomycin Dosing Regimen: 750 Vancomycin Monitoring using AUC goal of 400 - 600 range with trough as surrogate marker: 469 Date and Time for next Vancomycin Level to be drawn: 08/07 @ 1900 Pharmacist Comments on Vancomycin Plan: Vancomycin dosing will take advantage of [employer] as a clinical decision support tool that uses Bayesian modeling to calculate individual patient's pharmacokinetic parameters and forecast the patient's drug concentration time course with the target goal AUC 24 range of 400 - 600 mg/L/hr.
[2023-08-07] MEDS: Omeprazole 20 MG CAPSULE.DR PO ×2 (11:13→15:52)
--- NOTE | 2023-08-07 13:12 | PC.NURSE ---
Awaiting surgical consult s/p abd u/s Family at bedside
--- NOTE | 2023-08-07 13:45 | P.CONGS_ITS ---
History of Present Illness Consult details Consult date: 08/07/23 Narrative: 67-year-old male with known chronic liver disease, ETOH abuse, portal gastropathy, admitted last night because of altered mental status. He apparently had sepsis as well based on leukocytosis and vital signs He had been brought to the ER by family. He lives alone and was found to have mental status changes according to the knees. He has been sick with flu-like symptoms for about 10 days now. He has had body malaise and cough. He has had poor oral intake as well for almost 2 weeks. He has an active smoker and alcoholic beverage drinker He denies any abdominal pain. He did have some diarrhea according to the family. He denies any nausea or vomiting. Review of Systems 2 Constitutional: Constitutional: Reports fatigue, Reports fever(s) and Reports malaise Cardiovascular: Cardiovascular: Denies chest pain Respiratory: Respiratory: Reports cough Gastrointestinal: Gastrointestinal: Denies abdominal pain and Reports diarrhea Genitourinary: Genitourinary: Denies difficulty urinating Musculoskeletal: Musculoskeletal: Reports myalgias and Reports muscle weakness Endocrine: Endocrine: Reports fatigue PMFSH Past Medical History Medical History Smoker History of sigmoidoscopy Liver disease, alcoholic Alcohol abuse Hypertension Hypercholesterolemia Left ventricular hypertrophy Aortic root dilatation Surgical History Surgical History History of surgery of head H/O colonoscopy History of esophagogastroduodenoscopy (EGD) Social History Social History Household Members: None Housing: House Do you presently have visiting nurse or other home services: No Alcohol intake: current Alcohol intake frequency: a few times a week Alcohol type: beer and hard liquor Patient Tobacco Use Status: Former Tobacco user Tobacco use type: Cigarette Cigarettes Per Day: 7 Years Smoked: 55 Second Hand Smoke Exposure: No Substance Use Type: Marijuana service: Yes Current occupational status: retired Meds Allergies Allergy/AdvReac Type Severity Reaction Status Date / Time No Known Allergies Allergy Verified 08/06/23 20:06 [No Known Allergies*] Active Medications: Current Medications Albuterol Sulfate (Albuterol Sulfate 90 Mcg 8 Gm Inhaler) 4 puff INHALE RQ4H WHILE AWAKE [facility] Last Admin: 08/07/23 10:56 Dose: 4 puff Folic Acid (Folic Acid 1 Mg Tablet) 1 mg PO DAILY [facility] Last Admin: 08/07/23 09:01 Dose: 1 mg Lactated Ringer's (Lr) 1,000 mls @ 125 mls/hr IVCONT .Q8H [facility] Last Admin: 08/07/23 11:21 Dose: 125 mls/hr Azithromycin 500 mg/ Sodium (Chloride) 250 mls @ 125 mls/hr IV Q24H [facility] Ceftriaxone Sodium 1 gm/ (Sodium Chloride) 50 mls @ 100 mls/hr IV Q24H [facility] Vancomycin HCl 750 mg/ Sodium (Chloride) 265 mls @ 265 mls/hr IV Q12H [facility] Ibuprofen (Ibuprofen 200 Mg Tablet) 200 mg PO Q6H PRN PRN Reason: fever Multivitamins/Vitamin C (Multivitamin Tablet) 1 tab PO DAILY [facility] Last Admin: 08/07/23 09:01 Dose: 1 tab Omeprazole (Omeprazole 20 Mg Capsule.) 20 mg PO BID@0630,1630 [facility] Last Admin: 08/07/23 11:13 Dose: 20 mg Pharmacy Consult (Consult Rx Vancomycin Dosing) 1 each MISCELLANE DAILY PRN PRN Reason: Consult order Sodium Chloride (0.9 % Sodium Chloride Flush 3 Ml Syringe) 3 ml IVFLUSH QSHIFT [facility] Last Admin: 08/07/23 09:06 Dose: 3 ml Thiamine HCl (Thiamine Hcl 100 Mg Tablet) 100 mg PO DAILY [facility] Last Admin: 08/07/23 09:01 Dose: 100 mg Home Medications ?Medication ?Instructions ?Recorded ?Confirmed ?Last Taken ?Type folic acid 1 mg tablet 1 mg PO DAILY 08/07/23 08/07/23 2 Weeks Ago History ~07/24/23 lisinopril 10 mg tablet 10 mg PO DAILY 08/07/23 08/07/23 2 Weeks Ago History ~07/24/23 Physical Exam 2 Vital Signs: Vital Signs: Last Vital Signs Temp 97.5 F 08/07/23 06:21 Pulse 108 H 08/07/23 10:56 Resp 98 H 08/07/23 12:57 BP 116/65 08/07/23 12:57 Pulse Ox 98 08/07/23 12:57 O2 Del Method Nasal Cannula 08/07/23 12:57 O2 Flow Rate 2.5 08/07/23 12:57 BMI result Body Mass Index 21.4 Const: Other: Frail looking General: comfortable and no acute distress Orientation/consciousness: p atient oriented x3 Neck: Neck: Yes no lymphadenopathy Resp: Auscultation: clear to auscultation bilaterally Cardio: Rhythm: regular rhythm GI: Other: No Alegre's sign Palpation (GI): Soft to palpation, nontender and no guarding Neuro: General: patient oriented x3 Results Labs 08/10/23 08:17 08/11/23 06:05 Labs: Abnormal lab results 08/06/23 08/06/23 08/06/23 Range/Units 20:23 20:34 20:57 WBC (4.8-10.8) X10*3/uL RBC (4.60-5.80) X10*6/uL Hgb (14.0-18.0) g/dl Hct (42.0-52.0) % MCHC (31.0-36.0) g/dl Plt Count (160-400) X10*3/uL Immature Gran % (Auto) (0.0-0.4) % Neut % (Auto) (45-73) % Lymph % (Auto) (20-40) % Lymph # (Auto) (1.2-4.9) X10*3/uL Franklin # (Auto) (0.1-1.2) X10*3/uL Abs Immat Gran (auto) (0.00-0.03) X10*3/uL Absolute Neuts (auto) (2.0-8.3) x10*3/uL PT 16.2 H D (11.1-13.3) SEC INR 1.3 H (0.9-1.1) VBG HCO3 18 L (22-26) mmol/L Sodium 124 L (135-145) mmol/L Potassium (3.3-5.1) mmol/L Chloride 90 L (96-108) mmol/L Carbon Dioxide 20 L (22-29) mmol/L Random Glucose 129 H (60-115) mg/dL Lactic Acid 4.0 H* (0.5-2.0) mmol/L Calcium 8.3 L (8.4-10.2) mg/dL Magnesium 1.3 L* (1.6-2.6) mg/dL Total Bilirubin 3.2 H (0.0-1.0) mg/dL Direct Bilirubin 2.2 H (0.0-0.5) mg/dL AST 370 H (5-37) U/L ALT 311 H (0-40) U/L B-Natriuretic Peptide 223 H (<100) pg/mL Total Protein 6.4 L (6.5-8.0) g/dL Albumin 2.9 L (3.5-5.0) g/dL Urine Protein (Neg-Trace) mg/dL Urine Blood (Negative) Ur Leukocyte Esterase (Negative) Urine RBC (0-2) /HPF Urine WBC (0-5) /HPF U Marijuana (THC) Screen (Not Detect) 08/06/23 08/06/23 08/07/23 Range/Units 22:26 23:00 04:28 WBC 17.3 H 19.4 H (4.8-10.8) X10*3/uL RBC 3.65 L D 3.94 L (4.60-5.80) X10*6/uL Hgb 12.0 L D 12.9 L (14.0-18.0) g/dl Hct 32.5 L D 35.2 L (42.0-52.0) % MCHC 36.9 H 36.6 H (31.0-36.0) g/dl Plt Count 152 L D 147 L (160-400) X10*3/uL Immature Gran % (Auto) 0.5 H 0.8 H (0.0-0.4) % Neut % (Auto) 93.0 H 88.1 H (45-73) % Lymph % (Auto) 2.8 L 3.7 L (20-40) % Lymph # (Auto) 0.5 L 0.7 L (1.2-4.9) X10*3/uL Franklin # (Auto) 1.4 H (0.1-1.2) X10*3/uL Abs Immat Gran (auto) 0.09 H 0.16 H (0.00-0.03) X10*3/uL Absolute Neuts (auto) 16.1 H 17.1 H (2.0-8.3) x10*3/uL PT (11.1-13.3) SEC INR (0.9-1.1) VBG HCO3 (22-26) mmol/L Sodium 124 L (135-145) mmol/L Potassium 3.0 L (3.3-5.1) mmol/L Chloride 92 L (96-108) mmol/L Carbon Dioxide 19 L (22-29) mmol/L Random Glucose 117 H (60-115) mg/dL Lactic Acid (0.5-2.0) mmol/L Calcium 7.6 L D (8.4-10.2) mg/dL Magnesium (1.6-2.6) mg/dL Total Bilirubin 2.1 H (0.0-1.0) mg/dL Direct Bilirubin (0.0-0.5) mg/dL AST 255 H (5-37) U/L ALT 238 H (0-40) U/L B-Natriuretic Peptide (<100) pg/mL Total Protein 5.3 L (6.5-8.0) g/dL Albumin 2.2 L D (3.5-5.0) g/dL Urine Protein 30 (1+) H (Neg-Trace) mg/dL Urine Blood Moderate (2+) H (Negative) Ur Leukocyte Esterase Small (1+) H (Negative) Urine RBC 3-5 H (0-2) /HPF Urine WBC 6-10 H (0-5) /HPF U Marijuana (THC) Screen POSITIVE H (Not Detect) Short CBC 08/06/23 08/07/23 Range/Units 23:00 04:28 WBC 17.3 H 19.4 H (4.8-10.8) X10*3/uL Hgb 12.0 L D 12.9 L (14.0-18.0) g/dl Hct 32.5 L D 35.2 L (42.0-52.0) % Plt Count 152 L D 147 L (160-400) X10*3/uL BMP 08/06/23 08/07/23 20:57 04:28 Sodium 124 L 124 L Potassium 3.7 3.0 L Chloride 90 L 92 L Carbon Dioxide 20 L 19 L BUN 12 12 Creatinine 0.88 0.60 Calcium 8.3 L 7.6 L D Liver Function 08/06/23 08/07/23 Range/Units 20:57 04:28 Total Bilirubin 3.2 H 2.1 H (0.0-1.0) mg/dL Direct Bilirubin 2.2 H (0.0-0.5) mg/dL AST 370 H 255 H (5-37) U/L ALT 311 H 238 H (0-40) U/L Alkaline Phosphatase 81 62 D (39-117) U/L Albumin 2.9 L 2.2 L D (3.5-5.0) g/dL Urine 08/06/23 Range/Units 22:26 Urine Color Dark Yellow Urine Appearance Cloudy Urine pH 6.0 (5.0-9.0) Ur Specific Bend 1.015 (1.005-1.025) Urine Protein 30 (1+) H (Neg-Trace) mg/dL Urine Glucose (UA) Negative (Negative) mg/dL All other labs normal. Imaging Abdomen CT scan report/results: report reviewed and image reviewed CT scan - pelvis: report reviewed and image reviewed Assessment and Plan (1) Elevated LFTs: Status: Acute He has a known alcoholic, and has had chronic liver disease. He has portal gastropathy on a previous EGD. His bilirubin is elevated although this has gone down this morning. His CAT scan does show some dilatation of the common bile duct. He has gallstones as well so it may be best to proceed with MRCP to rule out any CBD obstruction/stone. I have reviewed his ultrasound as well. There is some thickening of the gallbladder wall but gallbladder itself does not appear to be markedly distended. Gallbladder wall thickening may be seen with chronic liver disease. He does not have any significant tenderness or Alegre's sign He does have other sources of infection including his urinary tract as well as pneumonia I will follow along while he is in the hospital. He seems to be adequately covered with antibiotics for now. I have discussed the above with his family at bedside. Procedures Date of Service Date of Service: 08/11/23
[2023-08-07] MEDS: Ibuprofen 200 MG TABLET PO (15:52)
[2023-08-07 17:35] LABS: Osmolality, Serum 268 mosm/kg (281-305)
[2023-08-07 18:18] LABS: Osmolality Urine 509 mosm/kg (373-1093)
--- NOTE | 2023-08-07 22:14 | PM.EVENT ---
Event Note Date of Service: 08/07/23 Event Note: All data reviewed; Detailed consult note to follow AM. Urine sodium pending. Shall follow up closely. Tommy Melgar MD
[2023-08-07] MEDS: Azithromycin 500 MG in 0.9 % Sodium Chloride 250 ML 125 MG IV (22:54)
[2023-08-07] MEDS: cefTRIAXone sodium 1 GM in 0.9 % Sodium Chloride 50 ML IV (22:55)
[2023-08-07] MEDS: vancomycin HCL 750 MG in 0.9 % Sodium Chloride 250 ML 265 MG IV (23:35)
[2023-08-08] VITALS (17 sets, daily range): BP systolic 109–170; BP diastolic 52–95; PULSE 74–125; RESP 13–31; TEMP 36.3–39.5; O2SAT 91–98
--- NOTE | 2023-08-08 | ECG_ITS ---
Test Reason : TACHYCARDIA Blood Pressure : / mmHG Vent. Rate : 125 BPM Atrial Rate : 125 BPM P-R Int : 136 ms QRS Dur : 098 ms QT Int : 312 ms P-R-T Axes : 063 050 046 degrees QTc Int : 450 ms Sinus tachycardia with occasional Premature ventricular complexes Possible Left atrial enlargement Nonspecific ST abnormality Abnormal ECG When compared with ECG of 08-AUG-2023 03:58, Premature ventricular complexes are now Present Referred By: Chin Sidhu Electronically Signed By:Brett Gage
--- NOTE | 2023-08-08 | ECG_ITS ---
Test Reason : TACHYCARDIA Blood Pressure : / mmHG Vent. Rate : 087 BPM Atrial Rate : 087 BPM P-R Int : 140 ms QRS Dur : 102 ms QT Int : 360 ms P-R-T Axes : 057 037 033 degrees QTc Int : 433 ms Normal sinus rhythm Normal ECG When compared with ECG of 08-AUG-2023 03:58, No significant change was found Referred By: Chin Sidhu Electronically Signed By:
[2023-08-08 04:28] LABS: Sodium Urine Random < 20.0 mmol/L
[2023-08-08] MEDS: Ibuprofen 200 MG TABLET PO (04:35)
[2023-08-08] MEDS: Lactated Ringers 1,000 ML 125 ML IVCONT ×3 (04:45→18:32)
[2023-08-08 05:00] LABS: Hematocrit 38.8 % (42.0-52.0); Hemoglobin 13.6 g/dl (14.0-18.0); Mean Corpuscular HGB Conc 35.1 g/dl (31.0-36.0); Mean Corpuscular Hemoglobin 32.9 pg (27.0-33.0); Mean Corpuscular Volume 93.9 fL (80.0-98.0); Mean Platelet Volume 10.8 fL (9.4-12.4); Platelet Count 135 X10*3/uL (160-400); Red Blood Count 4.13 X10*6/uL (4.60-5.80); Red Cell Distribution Width 12.1 % (11.0-16.0); White Blood Count 9.4 X10*3/uL (4.8-10.8)
--- NOTE | 2023-08-08 05:02 | PC.NURSE ---
Late entry: PT HR elevated to 130s, and developed ecoptic rhythm. In reviewing labs, t/w also notes that pts potassium was 3.0,a nd was not replaced. Contacted hospitalist regarding concern and ordered ekg. Vital taken and pt noted to be febrile, 103.1 rectally. Medications administered as per MAR. Yepez labs drawn by t/w earlier as instructed by provider
[2023-08-08 05:39] LABS: Anion Gap 11 (12-20); Blood Urea Nitrogen 7 mg/dL (9-16); Calcium 7.8 mg/dL (8.4-10.2); Carbon Dioxide 25 mmol/L (22-29); Chloride 95 mmol/L (96-108); Creatinine Clr Calc Pharmacy 122.3; Estimated Glomerular Filt Rate > 60; Glucose Random 96 mg/dL (60-115); Magnesium 1.7 mg/dL (1.6-2.6); Potassium 3.6 mmol/L (3.3-5.1); Sodium 127 mmol/L (135-145)
--- NOTE | 2023-08-08 07:00 | CA_ITS ---
Transthoracic Echocardiogram Patient (Last, First, Middle): Shay Varner K Gender: Male Date of : 1955 Age: 67 Procedure Date: 08/08/2023 Procedure Type: Transthoracic [place] [facility] [place]: 175.26 cm Weight: 68.04 kg BSA: 1.83 m2 Heart Rate: bpm BP: 140 / 72 mmHg [place]eller: SANDRA Referring MD: Chin Sidhu MD Symptoms: Bacteremia, rule out endocarditis Study Quality: Good ECG Rhythm: Sinus Conclusions: - Normal left ventricular cavity size. There is mildly increased left ventricular wall thickness. The left ventricular systolic function is low normal. The visually estimated ejection fraction is between 50-55%. - Mildly increased right ventricular cavity size. There is normal right ventricular systolic function. - No obvious vegetation noted. Findings Left Ventricle Normal left ventricular cavity size. There is mildly increased left ventricular wall thickness. The left ventricular systolic function is low normal. The visually estimated ejection fraction is between 50-55%. There is no evidence of regional wall motion abnormalities. Abnormal diastolic function is noted. Spectral Doppler is indicative of an impaired relaxation filling pattern. E/E prime ratio is between 8 and 15 consistent with indeterminate filling pressures. Right Ventricle Mildly increased right ventricular cavity size. There is normal right ventricular systolic function. Atria The left atrium is mildly dilated. Aortic Valve There is a normal trileaflet aortic valve. There is no aortic valve stenosis. There is trace (trivial) aortic valve regurgitation. Mitral Valve There is mild anterior mitral leaflet thickening. There is trace mitral valve regurgitation. There is no mitral valve stenosis. Pulmonic Valve The pulmonic valve is likely normal. Tricuspid Valve Normal tricuspid valve structure. There is no tricuspid valve regurgitation. Normal right atrial pressure. There is no evidence of pulmonary hypertension. Great Vessels All visible segments of the aorta are normal in size. The visualized portions of the pulmonary artery and branches are normal. Venous The inferior vena cava is normal in size and collapses greater than 50% with inspiration. Pericardium/Pleural There is no evidence of pericardial effusion. Prior Study Comparison No prior study available for comparison. Measurements 2D Linear Measurements IVSd: 1.11 0.6-0.9/0.6-1.0 cm LVIDd: 5.37 3.9-5.3/4.2-5.9 cm LVIDd Index: 2.93 2.4-3.2/2.2-3.1 cm/m2 LVIDs: 4.46 2.0-3.6 cm LVPWd: 1.10 0.7-1.1 cm Ao Root: 3.60 2.1-3.5 cm LA Diam: 4.00 2.7-3.8/3.0-4.0 cm LAIDs Index: 2.19 1.5-2.3 cm/m2 LV Mass: 291.89 67-162/88-224 g LV Mass Index: 159.50 43-95/49-115 g/m2 LVOT Diam: 2.40 3.0+(-)1.3 cm 2D Systolic Function EF 4C: 30.60 >55% EF 2C: 49.60 >55% EF BiP: 39.70 >55% Mitral Valve MV Pk E: 0.76 MV PK A: 0.80 MV Decel Time: 144.00 E/A: 1.00 E'Lateral: 8.49 E'Medial: 4.79 E/E' Med: 15.90 E/E' Lat: 9.00 PHT: 42.00 MVA PHT: 5.24 Decel Trimble: 5.30 Aortic Valve AoV Pk Justino: 1.35 AoV Mn Justino: 0.94 AoV VTI: 0.21 AoV Pk Grad: 7.00 Aov Mn Grad: 4.00 VIVEK Cont.VTI: 3.21 LVOT LVOT Pk Justino: 0.86 LVOT Mn Justino: 0.55 LVOT VTI: 0.15 LVOT Pk Grad: 3.00 LVOT Mn Grad: 1.00 LVOT Diam: 2.40 LVOT Area: 4.52 Diastolic Function MV Pk E: 0.76 MV Pk A: 0.80 E/A: 1.00 E'Medial: 4.79 E/E' Med: 15.90 E' Laterial: 8.49 E/E' Lat: 9.00 Tricuspid Valve TR Pk Justino: 3.16 TR Pk Grad: 40.00 Great Vessels Aorta Ao Root-2D: 3.60 2.0-3.7 cm Pulmonary Valve PV Pk Justino: 1.01 Peak PV Grad: 4.00 Updated in Other Vendor System with Status of Final Brett Gage MD electronically signed on 08/09/2023 12:37:06 PM with status of Final
--- NOTE | 2023-08-08 07:43 | PC.NURSE ---
PT IS A/O X 4 NO SOB/ESTHER NOTED SPEAKS IN FULL SENTENCES . LUNGS - EDDY AND RLL (DIMINISHED), ALL OTHER LOBES - CTA. PT TEMP HAS DECREASED, PLZ SEE VSS. PT DENIES ANY PAIN/DISC. PT IS A FALL RISK. PT HAS IV'S TO L AND R AC WHICH ARE PATENT. IVF INFUSING ORDERED. NO EDEMA NOTED. NO OPEN AREAS NOTED. [place] CATH IN PLACE AND DRAINING CLEAR YELLOW URINE. PT ATE BREAKFAST. PT AWARE OF PLAN OF CARE. WILL CONTINUE TO MONITOR.
[2023-08-08] MEDS: Albuterol Sulfate 90 MCG 8 GM INHALER 4 PUFF INHALE ×3 (07:55→15:09)
[2023-08-08] MEDS: Omeprazole 20 MG CAPSULE.DR PO (07:57)
[2023-08-08] MEDS: Thiamine HCL 100 MG TABLET PO (07:57)
[2023-08-08] MEDS: Folic Acid 1 MG TABLET PO (07:57)
[2023-08-08] MEDS: 0.9 % Sodium Chloride Flush 3 ML SYRINGE IVFLUSH ×2 (07:57→21:57)
[2023-08-08] MEDS: Multivitamin TABLET 1 TAB PO (07:58)
[2023-08-08] MEDS: vancomycin HCL 750 MG in 0.9 % Sodium Chloride 250 ML 265 MG IV (07:59)
--- NOTE | 2023-08-08 08:03 | PC.NURSE ---
DR. MCCAIN AT BEDSIDE, PT AWARE OF PLAN OF CARE.
--- NOTE | 2023-08-08 08:30 | MHC.EDTECH ---
pt cleaned. vital sign every hr because he temperature was very high 104.
--- NOTE | 2023-08-08 09:45 | P.PNIM_ITS ---
Subjective Subjective Date of Service: 08/08/23 Interval History: f/u on sepsis, pna, hyponatremia interval history: continue to improve and feels better, wbc down to 9 from 18, fever resolved. Physical Exam 2 Vital Signs: Vital Signs: Last Vital Signs Temp 97.3 F 08/08/23 09:00 Pulse 83 08/08/23 09:00 Resp 22 H 08/08/23 09:00 BP 109/52 L 08/08/23 09:00 Pulse Ox 92 08/08/23 09:00 O2 Del Method Nasal Cannula 08/08/23 09:00 O2 Flow Rate 1 08/08/23 09:00 BMI result Body Mass Index 21.4 General: AO X 3, no acute distress Resp: CTA bilateral CVS: S1,S2,RRR GI: +BS, NT, no distention Skin: No rash Neuro: motor grossly intact Psych: appropriate affect Objective Data Active Medications Albuterol Sulfate (Albuterol Sulfate 90 Mcg 8 Gm Inhaler) 4 puff INHALE RQ4H WHILE AWAKE [facility] Last Admin: 08/08/23 07:55 Dose: 4 puff Documented By: KIRBY Folic Acid (Folic Acid 1 Mg Tablet) 1 mg PO DAILY [facility] Last Admin: 08/08/23 07:57 Dose: 1 mg Documented By: PRATIK Lactated Ringer's (Lr) 1,000 mls @ 125 mls/hr IVCONT .Q8H [facility] Last Admin: 08/08/23 04:45 Dose: 125 mls/hr Documented By: ISABELA Azithromycin 500 mg/ Sodium (Chloride) 250 mls @ 125 mls/hr IV Q24H [facility] Last Infusion: 08/08/23 00:56 Dose: Infused Documented By: ISABELA Ceftriaxone Sodium 1 gm/ (Sodium Chloride) 50 mls @ 100 mls/hr IV Q24H [facility] Last Infusion: 08/07/23 23:37 Dose: Infused Documented By: ISABELA Vancomycin HCl 750 mg/ Sodium (Chloride) 265 mls @ 265 mls/hr IV Q12H [facility] Last Admin: 08/08/23 07:59 Dose: 265 mls/hr Documented By: PRATIK Ibuprofen (Ibuprofen 200 Mg Tablet) 200 mg PO Q6H PRN PRN Reason: fever Last Admin: 08/08/23 04:35 Dose: 200 mg Documented By: ISABELA Multivitamins/Vitamin C (Multivitamin Tablet) 1 tab PO DAILY [facility] Last Admin: 08/08/23 07:58 Dose: 1 tab Documented By: PRATIK Omeprazole (Omeprazole 20 Mg Capsule.) 20 mg PO BID@0630,1630 [facility] Last Admin: 08/08/23 07:57 Dose: 20 mg Documented By: PRATIK Pharmacy Consult (Consult Rx Vancomycin Dosing) 1 each MISCELLANE DAILY PRN PRN Reason: Consult order Sodium Chloride (0.9 % Sodium Chloride Flush 3 Ml Syringe) 3 ml IVFLUSH QSHIFT [facility] Last Admin: 08/08/23 07:57 Dose: 3 ml Documented By: PRATIK Thiamine HCl (Thiamine Hcl 100 Mg Tablet) 100 mg PO DAILY [facility] Last Admin: 08/08/23 07:57 Dose: 100 mg Documented By: PRATIK Labs 08/08/23 04:52 08/08/23 04:52 Labs: Laboratory Results - last 24 hr 08/07/23 08/07/23 08/07/23 04:28 15:40 18:02 MCV MCH MCHC RDW Plt Count MPV Absolute Nucleated RBC Nucleated RBC % (auto) Anion Gap Estim Creat Clear Calc Estimated GFR Random Glucose Osmolality 268 L Calcium Magnesium Lipase 12 Urine Osmolality 509 Ur Random Sodium < 20.0 08/08/23 04:52 MCV 93.9 MCH 32.9 MCHC 35.1 RDW 12.1 Plt Count 135 L MPV 10.8 Absolute Nucleated RBC 0.000 Nucleated RBC % (auto) 0.0 Anion Gap 11 L Estim Creat Clear Calc 122.3 Estimated GFR > 60 Random Glucose 96 Osmolality Calcium 7.8 L Magnesium 1.7 Lipase Urine Osmolality Ur Random Sodium Microbiology Microbiology Results: Microbiology 08/06/23 22:26 Urine Culture - Final Urine clean catch - Urine damon top No growth. 08/06/23 20:57 Blood Culture - Preliminary Blood - Venous Prelim: GPC Gram Stain only 08/06/23 20:23 Blood Culture - Preliminary Blood - Venous Prelim: GPC Gram Stain only Assessment and Plan (1) Community acquired pneumonia: Status: Acute (2) Severe sepsis: Status: Acute (3) Alcoholic cirrhosis of liver with ascites: Status: Acute (4) Electrolyte imbalance: Status: Acute Plan 67/m with alcoholic liver cirrhosis here with sepsis d/t PNA and gram positive cocci bacteremia Acute Hypoxic respiratory failure secondary to bronchopneumonia. -Bronchodialtors -O2 keep sat 88 to 92 -treat underlying sepsis/PNA Severe sepsis due to gram-positive cocci and bronchopneumonia, sepsis resolved. -continue Ceftriaxone, Azithro and Vanco -get echo -Follow culture sensitivity -Infectious disease consultation UTI--culture pending, continue Ceftriaxone Elevated LFTs secondary to alcohol abuse. History of cholelithiasis, clinically doesn't appear to have cholecystitis, sugery input noted.. Patient is advised to abstain from alcohol consumption. Continue to monitor. US:1. Cholelithiasis and sludge in the neck of the gallbladder with diffuse gallbladder wall thickening which could be seen in the setting of acute cholecystitis in the appropriate clinical setting. 2. Mild dilatation of the CBD of uncertain etiology. If indicated, correlation with MRCP could be obtained. GI to advise further Hyponatremia. likely from Hypervolemic state from chronic alcohol liver disease vs beer potomania, fluid, restriction. Follow sodium level which rising apropriately Hypomagnesemia. Repleted and corrected HTN--hold lisinopril, as BP on lower sice Alcoholic liver disease. Start treatment with thiamine, folic acid and multivitamins. Essential hypertension. Blood pressure is normal. Avoid anti-HTN medications for now. DVT prophylaxis: Heparin Code status: Full need for inpatient for bronchopneumonia + bacteremia treatment with supplemental oxygen, and IV antibiotics and bronchodilator therapy Quality Stroke Does the patient have a stroke diagnosis?: No VTE Prior VTE?: No VTE Risk Level:: Medical - moderate - high VTE Device Contraindication: Treatment Not Indicated VTE Drug Contraindication: N/A - Med Ordered
--- NOTE | 2023-08-08 10:38 | MHC.EDTECH ---
EKG DONE , I GAVE THE IMAGING TO THE RN
--- NOTE | 2023-08-08 13:01 | PM.CNNEP ---
History of Present Illness Reason for Consult Consult date: 08/09/23 Chief Complaint Chief complaint: Severe Sepsis, Pneumonia History of Present Illness Narrative: 67 years old man with a history of alcohol abuse presents to the emergency department complaining of one-week history of worsening shortness of breath, diarrhea, productive cough and generalized weakness. He denies fever or chills. Denies abdominal pain or diarrhea. Did not report any acute urinary symptoms. According to ED triage note patient was found to be confused and diaphoretic by the family members. Patient is tobacco smoker. Last time he smoked and drank alcohol was about 2 weeks ago. Review of Systems Review of Systems Yes all other systems are reviewed and are negative PMFSH Past Medical History Medical History Smoker History of sigmoidoscopy Liver disease, alcoholic Alcohol abuse Hypertension Hypercholesterolemia Left ventricular hypertrophy Aortic root dilatation Surgical History Surgical History History of surgery of head H/O colonoscopy History of esophagogastroduodenoscopy (EGD) Social History Social History Household Members: None Housing: House Do you presently have visiting nurse or other home services: No Alcohol intake: current Alcohol intake frequency: a few times a week Alcohol type: beer and hard liquor Patient Tobacco Use Status: Former Tobacco user Tobacco use type: Cigarette Cigarettes Per Day: 7 Years Smoked: 55 Second Hand Smoke Exposure: No Substance Use Type: Marijuana service: Yes Current occupational status: retired Meds Allergies Allergy/AdvReac Type Severity Reaction Status Date / Time No Known Allergies Allergy Verified 08/06/23 20:06 [No Known Allergies*] Active Medications: Current Medications Albuterol Sulfate (Albuterol Sulfate 90 Mcg 8 Gm Inhaler) 4 puff INHALE RQ4H WHILE AWAKE [facility] Last Admin: 08/08/23 11:09 Dose: 4 puff Folic Acid (Folic Acid 1 Mg Tablet) 1 mg PO DAILY [facility] Last Admin: 08/08/23 07:57 Dose: 1 mg Lactated Ringer's (Lr) 1,000 mls @ 125 mls/hr IVCONT .Q8H [facility] Last Admin: 08/08/23 12:39 Dose: 125 mls/hr Azithromycin 500 mg/ Sodium (Chloride) 250 mls @ 125 mls/hr IV Q24H [facility] Last Infusion: 08/08/23 00:56 Dose: Infused Ceftriaxone Sodium 1 gm/ (Sodium Chloride) 50 mls @ 100 mls/hr IV Q24H [facility] Last Infusion: 08/07/23 23:37 Dose: Infused Vancomycin HCl 750 mg/ Sodium (Chloride) 265 mls @ 265 mls/hr IV Q12H [facility] Last Infusion: 08/08/23 09:10 Dose: Infused Ibuprofen (Ibuprofen 200 Mg Tablet) 200 mg PO Q6H PRN PRN Reason: fever Last Admin: 08/08/23 04:35 Dose: 200 mg Multivitamins/Vitamin C (Multivitamin Tablet) 1 tab PO DAILY [facility] Last Admin: 08/08/23 07:58 Dose: 1 tab Omeprazole (Omeprazole 20 Mg Capsule.Dr) 20 mg PO BID@0630,1630 [facility] Last Admin: 08/08/23 07:57 Dose: 20 mg Pharmacy Consult (Consult Rx Vancomycin Dosing) 1 each MISCELLANE DAILY PRN PRN Reason: Consult order Sodium Chloride (0.9 % Sodium Chloride Flush 3 Ml Syringe) 3 ml IVFLUSH QSHIFT [facility] Last Admin: 08/08/23 07:57 Dose: 3 ml Thiamine HCl (Thiamine Hcl 100 Mg Tablet) 100 mg PO DAILY [facility] Last Admin: 08/08/23 07:57 Dose: 100 mg Home Medications ?Medication ?Instructions ?Recorded ?Confirmed ?Last Taken ?Type folic acid 1 mg tablet 1 mg PO DAILY 08/07/23 08/07/23 2 Weeks Ago History ~07/24/23 lisinopril 10 mg tablet 10 mg PO DAILY 08/07/23 08/07/23 2 Weeks Ago History ~07/24/23 Physical Exam Vital Signs: Last Vital Signs Temp 99.1 F 08/08/23 11:37 Pulse 96 08/08/23 11:37 Resp 13 08/08/23 11:37 BP 146/72 H 08/08/23 11:37 Pulse Ox 93 08/08/23 11:37 O2 Del Method Room Air 08/08/23 11:37 O2 Flow Rate 1 08/08/23 09:00 BMI result Body Mass Index 21.4 Const General: comfortable Nutritional Appearance: well nourished Orientation/consciousness: patient oriented x3 HEENT Head: No normal to inspection Mouth: moist mucous membranes Neck Neck: Yes supple and Yes no JVD Resp Auscultation: clear to auscultation bilaterally, no rales and rub present Cardio Jugular venous distension: no JVD Palpation: no palpable S3 and no palpable S4 Heart sounds: no rubs GI Palpation (GI): Soft to palpation and nontender Percussion: No Fluid wave present General: Yes no CVA tenderness Back/Spine/Pelvis Back: no CVA tenderness Skin General skin exam: no rashes or lesions noted Neuro General: patient oriented x3 Extrem General: Yes edema Results Lab Results 08/08/23 04:52 08/09/23 06:19 Lab results: Chemistry 08/06/23 08/07/23 08/08/23 20:57 04:28 04:52 Sodium 124 L 124 L 127 L Potassium 3.7 3.0 L 3.6 Carbon Dioxide 20 L 19 L 25 BUN 12 12 7 L Creatinine 0.88 0.60 0.56 Calcium 8.3 L 7.6 L D 7.8 L Hematology 08/06/23 08/07/23 08/08/23 23:00 04:28 04:52 WBC 17.3 H 19.4 H 9.4 Hgb 12.0 L D 12.9 L 13.6 L Plt Count 152 L D 147 L 135 L Urinalysis 08/06/23 22:26 Urine Color Dark Yellow Urine Appearance Cloudy Urine pH 6.0 Ur Specific [place] 1.015 Urine Protein 30 (1+) H Urine Glucose (UA) Negative Urine Ketones Negative Urine Blood Moderate (2+) H Urine Nitrite Negative Ur Leukocyte Esterase Small (1+) H Urine RBC 3-5 H Urine WBC 6-10 H Ur Squamous Epith Cells >20 Hyaline Casts 3-5 Urine Studies 08/07/23 18:02 Urine Osmolality 509 Assessment and Plan (1) Electrolyte imbalance: Status: Acute (2) Alcoholic cirrhosis of liver with ascites: Status: Acute Plan Hyponatremia in a setting of excessive alcohol intake Decreased free water clearance Goal is to correct at 0.5 mmol/L/hr and not more than 10 mmol/24 hrs Chec urine Na/Cr/OSm/serum OSm Check pNa Q 4 hrs - ordered BMP now Keep on IV NS or LR Restrict PO water intake Procedures Date of Service Date of Service: 08/09/23
--- NOTE | 2023-08-08 13:03 | MHC.CM.PN ---
Met with patient in regards to discharge planning. Patient lives alone, ambulates independently and had no services prior to coming to the hospital. Patient denies the need for services at d/c. PCP verified. Copy of HCP obtained from [place]. Patient will arrange his own Uber when medically stable. Continue to monitor for d/c needs.
--- NOTE | 2023-08-08 14:41 | PC.NURSE ---
BEDSIDE ECHOCARDIOGRAM IS BEING DONE. PT IS JAVI WELL.
[2023-08-08 14:42] LABS: Anion Gap 11 (12-20); Blood Urea Nitrogen 6 mg/dL (9-16); Calcium 7.8 mg/dL (8.4-10.2); Carbon Dioxide 26 mmol/L (22-29); Chloride 94 mmol/L (96-108); Creatinine Clr Calc Pharmacy 129.2; Estimated Glomerular Filt Rate > 60; Glucose Random 125 mg/dL (60-115); Potassium 3.5 mmol/L (3.3-5.1); Sodium 127 mmol/L (135-145)
--- NOTE | 2023-08-08 15:12 | P.PNGS_ITS ---
Subjective Subjective Date of Service: 08/09/23 Interval history: Continues to deny abdominal pain Says he feels well overall Tolerating diet Physical Exam 2 Vital Signs: Vital Signs: Last Vital Signs Temp 97.9 F 08/08/23 13:20 Pulse 74 08/08/23 15:09 Resp 18 08/08/23 15:09 BP 163/78 H 08/08/23 13:20 Pulse Ox 92 08/08/23 13:20 O2 Del Method Room Air 08/08/23 13:20 O2 Flow Rate 1 08/08/23 09:00 BMI result Body Mass Index 21.4 Const: Other: Frail looking General: comfortable and no acute distress Resp: Effort & Inspection: normal respiratory effort Cardio: Rate: regular rate GI: Palpation (GI): Soft to palpation, not firm and nontender Objective Data Active Medications Albuterol Sulfate (Albuterol Sulfate 90 Mcg 8 Gm Inhaler) 4 puff INHALE RQ4H WHILE AWAKE [facility] Last Admin: 08/08/23 15:09 Dose: 4 puff Documented By: KIRBY Folic Acid (Folic Acid 1 Mg Tablet) 1 mg PO DAILY [facility] Last Admin: 08/08/23 07:57 Dose: 1 mg Documented By: PRATIK Lactated Ringer's (Lr) 1,000 mls @ 125 mls/hr IVCONT .Q8H [facility] Last Admin: 08/08/23 12:39 Dose: 125 mls/hr Documented By: PRATIK Azithromycin 500 mg/ Sodium (Chloride) 250 mls @ 125 mls/hr IV Q24H [facility] Last Infusion: 08/08/23 00:56 Dose: Infused Documented By: ISABELA Ceftriaxone Sodium 1 gm/ (Sodium Chloride) 50 mls @ 100 mls/hr IV Q24H [facility] Last Infusion: 08/07/23 23:37 Dose: Infused Documented By: ISABELA Vancomycin HCl 750 mg/ Sodium (Chloride) 265 mls @ 265 mls/hr IV Q12H [facility] Last Infusion: 08/08/23 09:10 Dose: Infused Documented By: PRATIK Ibuprofen (Ibuprofen 200 Mg Tablet) 200 mg PO Q6H PRN PRN Reason: fever Last Admin: 08/08/23 04:35 Dose: 200 mg Documented By: ISABELA Multivitamins/Vitamin C (Multivitamin Tablet) 1 tab PO DAILY [facility] Last Admin: 08/08/23 07:58 Dose: 1 tab Documented By: PRATIK Omeprazole (Omeprazole 20 Mg Capsule.) 20 mg PO BID@0630,1090 [facility] Last Admin: 08/08/23 07:57 Dose: 20 mg Documented By: PRATIK Pharmacy Consult (Consult Rx Vancomycin Dosing) 1 each MISCELLANE DAILY PRN PRN Reason: Consult order Sodium Chloride (0.9 % Sodium Chloride Flush 3 Ml Syringe) 3 ml IVFLUSH QSHIFT [facility] Last Admin: 08/08/23 07:57 Dose: 3 ml Documented By: PRATIK Thiamine HCl (Thiamine Hcl 100 Mg Tablet) 100 mg PO DAILY [facility] Last Admin: 08/08/23 07:57 Dose: 100 mg Documented By: PRATIK Labs 08/08/23 04:52 08/09/23 06:19 Labs: Laboratory Results - last 24 hr 08/07/23 08/07/23 08/08/23 15:40 18:02 04:52 MCV 93.9 MCH 32.9 MCHC 35.1 RDW 12.1 Plt Count 135 L MPV 10.8 Absolute Nucleated RBC 0.000 Nucleated RBC % (auto) 0.0 Anion Gap 11 L Estim Creat Clear Calc 122.3 Estimated GFR > 60 Random Glucose 96 Osmolality 268 L Calcium 7.8 L Magnesium 1.7 Urine Osmolality 509 Ur Random Sodium < 20.0 08/08/23 14:00 MCV MCH MCHC RDW Plt Count MPV Absolute Nucleated RBC Nucleated RBC % (auto) Anion Gap 11 L Estim Creat Clear Calc 129.2 Estimated GFR > 60 Random Glucose 125 H Osmolality Calcium 7.8 L Magnesium Urine Osmolality Ur Random Sodium Microbiology Microbiology Results: Microbiology 08/06/23 20:57 Blood Culture - Preliminary Blood - Venous Staphylococcus species 08/06/23 20:23 Blood Culture - Preliminary Blood - Venous Staphylococcus species 08/06/23 22:26 Urine Culture - Final Urine clean catch - Urine damon top No growth. Procedures Date of Service Date of Service: 08/09/23 Progress Note: A&P Assessment and plan (1) Elevated LFTs: Status: Acute Assessment and Plan: Has alcohol liver disease, cirrhosis Abdomen soft No pain or tenderness Unlikely to have cholecystitis Bilirubin trending down MRCP not done Time Spent With Patient Time: Total time managing care of this patient today ____ minutes. Quality Stroke Does the patient have a stroke diagnosis?: No VTE Prior VTE?: No VTE Risk Level:: Medical - moderate - high VTE Device Contraindication: Treatment Not Indicated VTE Drug Contraindication: N/A - Med Ordered
--- NOTE | 2023-08-08 17:07 | PC.NURSE ---
pt incontinent large amount of stool stool this rn and licensed clinician cleaned pt and changed bed linens. pt refused po omeprazole dr ho made aware of HR of 120s bp 170/95. no new orders placed
--- NOTE | 2023-08-08 17:46 | MHC.EDTECH ---
EKG : RN AWARE . SHE WILL SEND IT TO DR MCCAIN
[2023-08-08] MEDS: PHENobarbitaL sodium 130 MG/ML IM ONCE 226 MG IM (18:28)
[2023-08-08 19:44] LABS: Vancomycin Random 5.5 mcg/mL (15-20)
--- NOTE | 2023-08-08 20:08 | HE.PHANOTE ---
VANCO DOSE ADJUSTMENT BASED ON SCR AND TROUGH OF 5.5 DOSE ADJUSTED TO 1250 Q 8. NEXT LEVEL 08/08 @1100
[2023-08-08] MEDS: cefTRIAXone sodium 1 GM in 0.9 % Sodium Chloride 50 ML IV (21:25)
[2023-08-08] MEDS: PHENobarbitaL sodium 130 MG/ML VIAL 170 MG IM (21:31)
[2023-08-08] MEDS: vancomycin HCL 1,250 MG in 0.9 % Sodium Chloride 250 ML 166.67 MG IV (21:37)
[2023-08-08] MEDS: Azithromycin 500 MG in 0.9 % Sodium Chloride 250 ML 125 MG IV (21:40)
[2023-08-09] VITALS (10 sets, daily range): BP systolic 105–137; BP diastolic 54–73; PULSE 87–99; RESP 16–20; TEMP 36.6–37.6; O2SAT 3–97
[2023-08-09] MEDS: PHENobarbitaL sodium 130 MG/ML VIAL 170 MG IM (00:45)
[2023-08-09] MEDS: vancomycin HCL 1,250 MG in 0.9 % Sodium Chloride 250 ML 166.67 MG IV ×3 (04:24→21:29)
[2023-08-09] MEDS: Omeprazole 20 MG CAPSULE.DR PO ×2 (05:59→16:48)
[2023-08-09 06:45] LABS: Anion Gap 6 (12-20); Blood Urea Nitrogen 4 mg/dL (9-16); Calcium 7.4 mg/dL (8.4-10.2); Carbon Dioxide 32 mmol/L (22-29); Chloride 93 mmol/L (96-108); Creatinine Clr Calc Pharmacy 134.3; Estimated Glomerular Filt Rate > 60; Glucose Random 97 mg/dL (60-115); Sodium 128 mmol/L (135-145)
[2023-08-09 06:46] LABS: Creatinine Clr Calc Pharmacy 139.8; Estimated Glomerular Filt Rate > 60
[2023-08-09] MEDS: Multivitamin TABLET 1 TAB PO (07:38)
[2023-08-09] MEDS: Thiamine HCL 100 MG TABLET PO (07:39)
[2023-08-09] MEDS: Potassium Chloride ER 20 MEQ TAB.ER.PRT 40 MEQ PO ×2 (07:39→19:58)
[2023-08-09] MEDS: PHENobarbitaL 15 MG TABLET 45 MG PO ×2 (07:39→19:58)
[2023-08-09] MEDS: 0.9 % Sodium Chloride Flush 3 ML SYRINGE IVFLUSH ×2 (07:39→20:05)
[2023-08-09] MEDS: Folic Acid 1 MG TABLET PO (07:39)
--- NOTE | 2023-08-09 08:43 | P.PNIM_ITS ---
Subjective Subjective Date of Service: 08/09/23 Interval History: f/u on sepsis, pna, hyponatremia interval history: feels better, no more fever, no agiation, HR better since started on Phenobarbital for alcohol withdrawal, BCx showing staph species . Physical Exam 2 Vital Signs: Vital Signs: Last Vital Signs Temp 98.1 F 08/09/23 08:00 Pulse 87 08/09/23 08:00 Resp 18 08/09/23 08:00 BP 130/73 08/09/23 08:00 Pulse Ox 96 08/09/23 08:00 O2 Del Method Nasal Cannula 08/09/23 08:00 O2 Flow Rate 3 08/09/23 08:00 BMI result Body Mass Index 21.4 Const: Other: General: AO X 3, no acute distress Resp: CTA bilateral CVS: S1,S2,RRR GI: +BS, NT, no distention Skin: No rash Neuro: motor grossly intact Psych: appropriate affect Objective Data Active Medications Albuterol Sulfate (Albuterol Sulfate 90 Mcg 8 Gm Inhaler) 4 puff INHALE RQ4H WHILE AWAKE [facility] Last Admin: 08/09/23 08:24 Dose: Not Given Documented By: ROGELIO Non-Admin Reason: Patient Asleep Folic Acid (Folic Acid 1 Mg Tablet) 1 mg PO DAILY [facility] Last Admin: 08/09/23 07:39 Dose: 1 mg Documented By: BRITTANY Azithromycin 500 mg/ Sodium (Chloride) 250 mls @ 125 mls/hr IV Q24H [facility] Last Infusion: 08/09/23 02:53 Dose: Infused Documented By: MARY Ceftriaxone Sodium 1 gm/ (Sodium Chloride) 50 mls @ 100 mls/hr IV Q24H [facility] Last Infusion: 08/08/23 22:10 Dose: Infused Documented By: LISA Vancomycin HCl 1,250 mg/ (Sodium Chloride) 250 mls @ 166.667 mls/hr IV Q8H [facility] Last Infusion: 08/09/23 06:22 Dose: Infused Documented By: LSIA Ibuprofen (Ibuprofen 200 Mg Tablet) 200 mg PO Q6H PRN PRN Reason: fever Last Admin: 08/08/23 04:35 Dose: 200 mg Documented By: ISABELA Multivitamins/Vitamin C (Multivitamin Tablet) 1 tab PO DAILY [facility] Last Admin: 08/09/23 07:38 Dose: 1 tab Documented By: BRITTANY Omeprazole (Omeprazole 20 Mg Capsule.Dr) 20 mg PO BID@0630,1630 [facility] Last Admin: 08/09/23 05:59 Dose: 20 mg Documented By: LISA Pharmacy Consult (Consult Rx Vancomycin Dosing) 1 each MISCELLANE DAILY PRN PRN Reason: Consult order Pharmacy Consult (Consult Rx Etoh Phenob Im/Po) 1 each MISCELLANE ONCE PRN; Protocol PRN Reason: Consult order Phenobarbital (Phenobarbital 15 Mg Tablet) 45 mg PO BID [facility] Stop: 08/10/23 21:01 Last Admin: 08/09/23 07:39 Dose: 45 mg Documented By: BRITTANY Phenobarbital (Phenobarbital 15 Mg Tablet) 15 mg PO BID [facility] Stop: 08/12/23 21:01 Phenobarbital (Phenobarbital 15 Mg Tablet) 15 mg PO DAILY [facility] Stop: 08/14/23 09:01 Potassium Chloride (Potassium Chloride Er 20 Meq Tab.Er.Prt) 40 meq PO BID [facility] Stop: 08/10/23 09:01 Last Admin: 08/09/23 07:39 Dose: 40 meq Documented By: BRITTANY Sodium Chloride (0.9 % Sodium Chloride Flush 3 Ml Syringe) 3 ml IVFLUSH QSHIFT [facility] Last Admin: 08/09/23 07:39 Dose: 3 ml Documented By: BRITTANY Thiamine HCl (Thiamine Hcl 100 Mg Tablet) 100 mg PO DAILY [facility] Last Admin: 08/09/23 07:39 Dose: 100 mg Documented By: BRITTANY Labs 08/08/23 04:52 08/09/23 06:19 Labs: Laboratory Results - last 24 hr 08/08/23 08/08/23 08/09/23 14:00 18:58 06:19 Anion Gap 11 L 6 L Estim Creat Clear Calc 129.2 139.8 Estimated GFR > 60 Random Glucose 125 H Calcium 7.8 L Random Vancomycin 5.5 L 08/09/23 08/09/23 06:19 06:19 Anion Gap Estim Creat Clear Calc 134.3 Estimated GFR > 60 > 60 Random Glucose 97 Calcium 7.4 L Random Vancomycin Microbiology Microbiology Results: Microbiology 08/06/23 20:57 Blood Culture - Preliminary Blood - Venous Staphylococcus species 08/06/23 20:23 Blood Culture - Preliminary Blood - Venous Staphylococcus species 08/06/23 22:26 Urine Culture - Final Urine clean catch - Urine damon top No growth. Assessment and Plan (1) Community acquired pneumonia: Status: Acute (2) Severe sepsis: Status: Acute (3) Alcoholic cirrhosis of liver with ascites: Status: Acute (4) Electrolyte imbalance: Status: Acute Plan 67/m with alcoholic liver cirrhosis here with sepsis d/t PNA and gram positive cocci bacteremia Acute Hypoxic respiratory failure secondary to bronchopneumonia/bacteremia--overall improving -Bronchodialtors -O2 keep sat 88 to 92 -treat underlying sepsis/PNA Severe sepsis due to gram-positive cocci and bronchopneumonia, sepsis resolved. -continue Ceftriaxone, Azithro and Vanco -get echo to rule out endocarditis -Follow culture sensitivity -Infectious disease consultation Staph Species bacteremia--continue Vanco, ID consult and wait for sensitivity UTI--culture NG, continue Ceftriaxone Elevated LFTs secondary to alcohol abuse. History of cholelithiasis, clinically doesn't appear to have cholecystitis, sugery input noted.. Patient is advised to abstain from alcohol consumption. Continue to monitor. US:1. Cholelithiasis and sludge in the neck of the gallbladder with diffuse gallbladder wall thickening which could be seen in the setting of acute cholecystitis in the appropriate clinical setting. 2. Mild dilatation of the CBD of uncertain etiology. If indicated, correlation with MRCP could be obtained. GI to advise further Diarrhea yesterday, probably due to Abx, cdif requested Hyponatremia. likely from Hypervolemic state from chronic alcohol liver disease vs beer potomania, fluid, restriction. Follow sodium level which rising apropriately Hypomagnesemia. Repleted and corrected Hypokalemia--oral replacement, check mag HTN--BP, restart Lisininopril 10 daily Alcoholic liver disease. Start treatment with thiamine, folic acid and multivitamins. Phenobarbita protocol for withdrawal Essential hypertension. Blood pressure is normal. Avoid anti-HTN medications for now. DVT prophylaxis: Heparin Code status: Full need for inpatient for bronchopneumonia + bacteremia treatment with supplemental oxygen, and IV antibiotics and bronchodilator therapy Quality Stroke Does the patient have a stroke diagnosis?: No VTE Prior VTE?: No VTE Risk Level:: Medical - moderate - high VTE Device Contraindication: Treatment Not Indicated VTE Drug Contraindication: N/A - Med Ordered
[2023-08-09 09:15] LABS: Alanine Aminotransferase 207 U/L (0-40); Albumin Level 1.9 g/dL (3.5-5.0); Alkaline Phosphatase 60 U/L (39-117); Aspartate Amino Transferase 200 U/L (5-37); Bilirubin Direct 0.9 mg/dL (0.0-0.5); Bilirubin Total 1.5 mg/dL (0.0-1.0); Magnesium 1.5 mg/dL (1.6-2.6); Total Protein 4.5 g/dL (6.5-8.0)
[2023-08-09] MEDS: lisinopriL 10 MG TABLET PO (10:15)
[2023-08-09] MEDS: 0.9 % Sodium Chloride 1,000 ML 100 ML IVCONT ×2 (10:15→19:44)
[2023-08-09 11:41] LABS: Vancomycin Random 14.4 mcg/mL (15-20)
--- NOTE | 2023-08-09 11:56 | HE.PHANOTE ---
Michell Cruz: Renal function remains stable, continue current dose of 1250mg Q8H, predicted AUC 549. Next trough to be drawn 08/09 11:00.
[2023-08-09] MEDS: Albuterol Sulfate 90 MCG 8 GM INHALER 4 PUFF INHALE ×3 (12:02→19:39)
--- NOTE | 2023-08-09 14:42 | P.PNNP_ITS ---
Subjective Subjective Date of Service: 08/10/23 Interval history: Events noted. Rate of correction of sodium is appropriate . Physical Exam 2 Vital Signs: Vital Signs: Last Vital Signs Temp 97.8 F 08/09/23 11:38 Pulse 96 08/09/23 12:02 Resp 18 08/09/23 12:02 BP 111/62 08/09/23 11:38 Pulse Ox 94 08/09/23 11:38 O2 Del Method Nasal Cannula 08/09/23 11:38 O2 Flow Rate 3 08/09/23 11:38 BMI result Body Mass Index 21.4 Const: General: comfortable Nutritional Appearance: well nourished O rientation/consciousness: patient oriented x3 HEENT: Head: No normal to inspection Mouth: moist mucous membranes Neck: Neck: Yes supple and Yes no JVD Resp: Auscultation: clear to auscultation bilaterally, no rales and rub present Cardio: Jugular venous distension: no JVD Palpation: no palpable S3 and no palpable S4 Heart sounds: no rubs GI: Palpation (GI): Soft to palpation and nontender Percussion: No Fluid wave present : General: Yes no CVA tenderness Back/Spine/Pelvis: Back: no CVA tenderness Skin: General skin exam: no rashes or lesions noted Neuro: General: patient oriented x3 Extrem: General: Yes edema Objective Data Labs 08/10/23 08:17 08/10/23 08:17 Labs: Laboratory Results - last 24 hr 08/08/23 08/08/23 08/09/23 14:00 18:58 06:19 Sodium 127 L 128 L Potassium 3.5 3.0 L Chloride 94 L 93 L Carbon Dioxide 26 32 H Anion Gap 11 L 6 L BUN 6 L 4 L Creatinine 0.53 0.49 L Estim Creat Clear Calc 129.2 Estimated GFR > 60 Random Glucose 125 H Calcium 7.8 L Magnesium Total Bilirubin Direct Bilirubin AST ALT Alkaline Phosphatase Total Protein Albumin Random Vancomycin 5.5 L 08/09/23 08/09/23 08/09/23 06:19 06:19 06:19 Sodium Potassium Chloride Carbon Dioxide Anion Gap BUN Creatinine 0.51 Estim Creat Clear Calc 139.8 134.3 Estimated GFR > 60 > 60 Random Glucose 97 Calcium 7.4 L Magnesium 1.5 L Total Bilirubin 1.5 H Direct Bilirubin 0.9 H AST 200 H ALT 207 H Alkaline Phosphatase 60 Total Protein 4.5 L Albumin 1.9 L Random Vancomycin 08/09/23 11:02 Sodium Potassium Chloride Carbon Dioxide Anion Gap BUN Creatinine Estim Creat Clear Calc Estimated GFR Random Glucose Calcium Magnesium Total Bilirubin Direct Bilirubin AST ALT Alkaline Phosphatase Total Protein Albumin Random Vancomycin 14.4 L Microbiology Microbiology Results: Microbiology 08/06/23 20:57 Blood - Venous Blood Culture - Preliminary Staphylococcus species 08/06/23 20:23 Blood - Venous Blood Culture - Preliminary Staphylococcus species 08/06/23 22:26 Urine clean catch - Urine damon top Urine Culture - Final No growth. Procedures Date of Service Date of Service: 08/10/23 Assessment & Plan Assessment and plan (1) Electrolyte imbalance: Status: Acute (2) Alcoholic cirrhosis of liver with ascites: Status: Acute Plan Hyponatremia in a setting of excessive alcohol intake Decreased free water clearance Goal is to correct at 0.5 mmol/L/hr and not more than 10 mmol/24 hrs Check pNa Q 12 hrs - Keep on IV NS or LR Restrict PO water intake Time Spent With Patient Time: Total time managing care of this patient today ____ minutes. Progress Note: Quality Stroke Does the patient have a stroke diagnosis?: No
[2023-08-09] MEDS: cefTRIAXone sodium 1 GM in 0.9 % Sodium Chloride 50 ML IV (19:33)
[2023-08-09] MEDS: Azithromycin 500 MG in 0.9 % Sodium Chloride 250 ML 125 MG IV (22:16)
--- NOTE | 2023-08-09 23:31 | W.PM.IDCN ---
History of Present Illness Data of Consult Service Date: 08/09/23 Requesting physician: Chin Sidhu Primary Care Provider: Adelaide Cotto MD [facility] Reason for consult: pneumonia?aspiration He presents with cough and shortness of breath. He has staph species in blood. He has no fever or chills. Review of Systems Review of Systems: Yes all other systems are reviewed and are negative [facility] Past Medical History Medical History Smoker History of sigmoidoscopy Liver disease, alcoholic Alcohol abuse Hypertension Hypercholesterolemia Left ventricular hypertrophy Aortic root dilatation Family History Family history: reviewed and not pertinent Surgical History Surgical History History of surgery of head H/O colonoscopy History of esophagogastroduodenoscopy (EGD) Social History Social History Household Members: None Housing: House Do you presently have visiting nurse or other home services: No Alcohol intake: current Alcohol intake frequency: a few times a week Alcohol type: beer and hard liquor Patient Tobacco Use Status: Former Tobacco user Tobacco use type: Cigarette Cigarettes Per Day: 7 Years Smoked: 55 Second Hand Smoke Exposure: No Substance Use Type: Marijuana service: Yes Current occupational status: retired [employer] Allergies Allergy/AdvReac Type Severity Reaction Status Date / Time No Known Allergies Allergy Verified 08/06/23 20:06 [No Known Allergies*] Active Medications: Current Medications Albuterol Sulfate (Albuterol Sulfate 90 Mcg 8 Gm Inhaler) 4 puff INHALE RQ4H WHILE AWAKE [facility] Last Admin: 08/09/23 19:39 Dose: 4 puff Folic Acid (Folic Acid 1 Mg Tablet) 1 mg PO DAILY [facility] Last Admin: 08/09/23 07:39 Dose: 1 mg Azithromycin 500 mg/ Sodium (Chloride) 250 mls @ 125 mls/hr IV Q24H [facility] Last Admin: 08/09/23 22:16 Dose: 125 mls/hr Ceftriaxone Sodium 1 gm/ (Sodium Chloride) 50 mls @ 100 mls/hr IV Q24H [facility] Last Infusion: 08/09/23 21:30 Dose: Infused Sodium Chloride (Ns) 1,000 mls @ 100 mls/hr IVCONT .Q10H [facility] Last Admin: 08/09/23 19:44 Dose: 100 mls/hr Ibuprofen (Ibuprofen 200 Mg Tablet) 200 mg PO Q6H PRN PRN Reason: fever Last Admin: 08/08/23 04:35 Dose: 200 mg Lisinopril (Lisinopril 10 Mg Tablet) 10 mg PO DAILY [facility]; Protocol Last Admin: 08/09/23 10:15 Dose: 10 mg Multivitamins/Vitamin C (Multivitamin Tablet) 1 tab PO DAILY [facility] Last Admin: 08/09/23 07:38 Dose: 1 tab Omeprazole (Omeprazole 20 Mg Capsule.Dr) 20 mg PO BID@0630,1630 [facility] Last Admin: 08/09/23 16:48 Dose: 20 mg Pharmacy Consult (Consult Rx Vancomycin Dosing) 1 each MISCELLANE DAILY PRN PRN Reason: Consult order Pharmacy Consult (Consult Rx Etoh Phenob Im/Po) 1 each MISCELLANE ONCE PRN; Protocol PRN Reason: Consult order Phenobarbital (Phenobarbital 15 Mg Tablet) 45 mg PO BID [facility] Stop: 08/10/23 21:01 Last Admin: 08/09/23 19:58 Dose: 45 mg Phenobarbital (Phenobarbital 15 Mg Tablet) 15 mg PO BID [facility] Stop: 08/12/23 21:01 Phenobarbital (Phenobarbital 15 Mg Tablet) 15 mg PO DAILY [facility] Stop: 08/14/23 09:01 Potassium Chloride (Potassium Chloride Er 20 Meq Tab.Er.Prt) 40 meq PO BID [facility] Stop: 08/10/23 09:01 Last Admin: 08/09/23 19:58 Dose: 40 meq Sodium Chloride (0.9 % Sodium Chloride Flush 3 Ml Syringe) 3 ml IVFLUSH QSHIFT [facility] Last Admin: 08/09/23 20:05 Dose: 3 ml Thiamine HCl (Thiamine Hcl 100 Mg Tablet) 100 mg PO DAILY [facility] Last Admin: 08/09/23 07:39 Dose: 100 mg Home Medications ?Medication ?Instructions ?Recorded ?Confirmed ?Last Taken ?Type folic acid 1 mg tablet 1 mg PO DAILY 08/07/23 08/07/23 2 Weeks Ago History ~07/24/23 lisinopril 10 mg tablet 10 mg PO DAILY 08/07/23 08/07/23 2 Weeks Ago History ~07/24/23 Physical Exam Vital Signs: Vital Signs: Last Vital Signs Temp 98.2 F 08/09/23 19:43 Pulse 94 08/09/23 19:43 Resp 20 08/09/23 19:43 BP 109/59 L 08/09/23 19:43 Pulse Ox 96 08/09/23 19:43 O2 Del Method Nasal Cannula 08/09/23 19:43 O2 Flow Rate 3 08/09/23 19:43 BMI result Body Mass Index 21.4 Const: General: cooperative HEENT: Head: Yes normal to inspection Face and sinus: Yes normal facial exam Mouth: Normal oral and palatal mucosa present Teeth and gingiva: dentition normal Eyes: General: appearance normal, both eyes and all related structures Pupils: Equal, round and reactive pupils present Resp: Other: rhonchi bases Cardio: Rate: regular rate Rhythm: regular rhythm GI: Palpation (GI): Soft to palpation and nontender : General: Yes no CVA tenderness Back/Spine/Pelvis: Back: no CVA tenderness Skin: General skin exam: no rashes or lesions noted Neuro: General: moves all extremities Cranial nerves: Yes Equal, round and reactive pupils present Psych: Other: encephalopathic Results Labs 08/08/23 04:52 08/09/23 06:19 Labs: BMP 08/09/23 08/09/23 06:19 06:19 Sodium 128 L Potassium 3.0 L Chloride 93 L Carbon Dioxide 32 H BUN 4 L Creatinine 0.49 L 0.51 Calcium 7.4 L Liver Function 08/09/23 Range/Units 06:19 Total Bilirubin 1.5 H (0.0-1.0) mg/dL Direct Bilirubin 0.9 H (0.0-0.5) mg/dL AST 200 H (5-37) U/L ALT 207 H (0-40) U/L Alkaline Phosphatase 60 (39-117) U/L Albumin 1.9 L (3.5-5.0) g/dL Microbiology Microbiology Results: Microbiology 08/06/23 20:57 Blood - Venous Blood Culture - Preliminary Staphylococcus species 08/06/23 20:23 Blood - Venous Blood Culture - Preliminary Staphylococcus species 08/06/23 22:26 Urine clean catch - Urine damon top Urine Culture - Final No growth. Assessment and Plan (1) Severe sepsis: Status: Acute (2) Alcoholic cirrhosis of liver with ascites: Status: Acute (3) Community acquired pneumonia: Qualifiers: Laterality: unspecified laterality Qualified Code(s): J18.9 - Pneumonia, unspecified organism Status: Acute Plan He has pneumonia CAP staph species likely contaminant Stop Vancomycin. Zmax and Ceftriaxone 3-5 d and then po Ceftin total 10 d
[2023-08-10] VITALS (10 sets, daily range): BP systolic 100–156; BP diastolic 53–86; PULSE 86–125; RESP 17–20; TEMP 36.6–37.7; O2SAT 91–96
[2023-08-10] MEDS: Omeprazole 20 MG CAPSULE.DR PO (06:50)
[2023-08-10] MEDS: PHENobarbitaL 15 MG TABLET 45 MG PO ×2 (08:22→19:43)
[2023-08-10] MEDS: Thiamine HCL 100 MG TABLET PO (08:22)
[2023-08-10] MEDS: lisinopriL 10 MG TABLET PO (08:22)
[2023-08-10] MEDS: Potassium Chloride ER 20 MEQ TAB.ER.PRT 40 MEQ PO (08:22)
[2023-08-10] MEDS: Multivitamin TABLET 1 TAB PO (08:22)
[2023-08-10] MEDS: Folic Acid 1 MG TABLET PO (08:22)
[2023-08-10] MEDS: 0.9 % Sodium Chloride Flush 3 ML SYRINGE IVFLUSH ×3 (08:23→20:01)
--- NOTE | 2023-08-10 08:49 | P.PNIM_ITS ---
Subjective Subjective Date of Service: 08/10/23 Interval History: f/u on sepsis, pna, hyponatremia interval history:Doing well, no sob, no fever or chils . Physical Exam 2 Vital Signs: Vital Signs: Last Vital Signs Temp 97.8 F 08/10/23 08:00 Pulse 90 08/10/23 08:00 Resp 20 08/10/23 08:00 BP 129/61 08/10/23 08:00 Pulse Ox 95 08/10/23 08:00 O2 Del Method Nasal Cannula 08/10/23 08:00 O2 Flow Rate 3 08/10/23 08:00 BMI result Body Mass Index 21.4 Const: Other: General: AO X 3, no acute distress Resp: CTA bilateral CVS: S1,S2,RRR GI: +BS, NT, no distention Skin: No rash Neuro: motor grossly intact Psych: appropriate affect Objective Data Active Medications Albuterol Sulfate (Albuterol Sulfate 90 Mcg 8 Gm Inhaler) 4 puff INHALE RQ4H WHILE AWAKE [facility] Last Admin: 08/10/23 08:05 Dose: Not Given Documented By: CARLOS EDUARDO Non-Admin Reason: Patient Asleep Folic Acid (Folic Acid 1 Mg Tablet) 1 mg PO DAILY [facility] Last Admin: 08/10/23 08:22 Dose: 1 mg Documented By: TORSTEN Azithromycin 500 mg/ Sodium (Chloride) 250 mls @ 125 mls/hr IV Q24H [facility] Last Infusion: 08/10/23 01:45 Dose: Infused Documented By: MARY Ceftriaxone Sodium 1 gm/ (Sodium Chloride) 50 mls @ 100 mls/hr IV Q24H [facility] Last Infusion: 08/09/23 21:30 Dose: Infused Documented By: MARY Sodium Chloride (Ns) 1,000 mls @ 100 mls/hr IVCONT .Q10H [facility] Last Admin: 08/10/23 03:52 Dose: Not Given Documented By: MARY Non-Admin Reason: bag full Ibuprofen (Ibuprofen 200 Mg Tablet) 200 mg PO Q6H PRN PRN Reason: fever Last Admin: 08/08/23 04:35 Dose: 200 mg Documented By: MONTEIR Lisinopril (Lisinopril 10 Mg Tablet) 10 mg PO DAILY [facility]; Protocol Last Admin: 08/10/23 08:22 Dose: 10 mg Documented By: TORSTEN Multivitamins/Vitamin C (Multivitamin Tablet) 1 tab PO DAILY [facility] Last Admin: 08/10/23 08:22 Dose: 1 tab Documented By: TORSTEN Omeprazole (Omeprazole 20 Mg Capsule.Dr) 20 mg PO BID@0630,1630 [facility] Last Admin: 08/10/23 06:50 Dose: 20 mg Documented By: MARY Pharmacy Consult (Consult Rx Etoh Phenob Im/Po) 1 each MISCELLANE ONCE PRN; Protocol PRN Reason: Consult order Phenobarbital (Phenobarbital 15 Mg Tablet) 45 mg PO BID [facility] Stop: 08/10/23 21:01 Last Admin: 08/10/23 08:22 Dose: 45 mg Documented By: TORSTEN Phenobarbital (Phenobarbital 15 Mg Tablet) 15 mg PO BID [facility] Stop: 08/12/23 21:01 Phenobarbital (Phenobarbital 15 Mg Tablet) 15 mg PO DAILY [facility] Stop: 08/14/23 09:01 Potassium Chloride (Potassium Chloride Er 20 Meq Tab.Er.Prt) 40 meq PO BID [facility] Stop: 08/10/23 09:01 Last Admin: 08/10/23 08:22 Dose: 40 meq Documented By: TORSTEN Sodium Chloride (0.9 % Sodium Chloride Flush 3 Ml Syringe) 3 ml IVFLUSH QSHIFT [facility] Last Admin: 08/10/23 08:23 Dose: 3 ml Documented By: TORSTEN Thiamine HCl (Thiamine Hcl 100 Mg Tablet) 100 mg PO DAILY [facility] Last Admin: 08/10/23 08:22 Dose: 100 mg Documented By: TORSTEN Labs 08/08/23 04:52 08/09/23 06:19 Labs: Laboratory Results - last 24 hr 08/09/23 08/09/23 06:19 11:02 Magnesium 1.5 L Total Bilirubin 1.5 H Direct Bilirubin 0.9 H AST 200 H ALT 207 H Alkaline Phosphatase 60 Total Protein 4.5 L Albumin 1.9 L Random Vancomycin 14.4 L Microbiology Microbiology Results: Microbiology 08/06/23 20:57 Blood Culture - Preliminary Blood - Venous Staphylococcus species 08/06/23 20:23 Blood Culture - Preliminary Blood - Venous Staphylococcus species Assessment and Plan (1) Community acquired pneumonia: Status: Acute (2) Severe sepsis: Status: Acute (3) Alcoholic cirrhosis of liver with ascites: Status: Acute (4) Electrolyte imbalance: Status: Acute Plan 67/m with alcoholic liver cirrhosis here with sepsis d/t PNA and gram positive cocci bacteremia Acute Hypoxic respiratory failure secondary to bronchopneumonia/bacteremia--overall improving -Bronchodialtors PRN -O2 keep sat 88 to 92 -treat underlying sepsis/PNA Severe sepsis due Pneumonia, blood culture growing staph species -He was on Ceftriaxone, Azithro and Vanco -think staph likely contamination and recommend Azithro + Ceftriaxone for 3 days, then PO Ceftin for 10 days Staph Species bacteremia--see above UTI--culture NG, continue Ceftriaxone as above Elevated LFTs secondary to alcohol abuse. History of cholelithiasis, clinically doesn't appear to have cholecystitis, sugery input noted no indication for surgery.. Patient is advised to abstain from alcohol consumption. Continue to monitor. US:1. Cholelithiasis and sludge in the neck of the gallbladder with diffuse gallbladder wall thickening which could be seen in the setting of acute cholecystitis in the appropriate clinical setting. 2. Mild dilatation of the CBD of uncertain etiology. If indicated, correlation with MRCP could be obtained. GI to advise further Diarrhea yesterday, probably due to Abx, no more diarrhea, dc cdif order Hyponatremia. likely from Hypervolemic state from chronic alcohol liver disease vs beer potomania, fluid, restriction. Follow sodium level which rising apropriately Hypomagnesemia. Repleted and corrected Hypokalemia--oral replacement, check mag HTN--BP, restart Lisininopril 10 daily Alcoholic liver disease. Start treatment with thiamine, folic acid and multivitamins. Phenobarbita protocol for withdrawal Essential hypertension. Blood pressure is normal. Avoid anti-HTN medications for now. DVT prophylaxis: Heparin Code status: Full need for inpatient for bronchopneumonia + bacteremia treatment with supplemental oxygen, and IV antibiotics and bronchodilator therapy possible dc today Quality Stroke Does the patient have a stroke diagnosis?: No VTE Prior VTE?: No VTE Risk Level:: Medical - moderate - high VTE Device Contraindication: Treatment Not Indicated VTE Drug Contraindication: N/A - Med Ordered
[2023-08-10 09:02] LABS: Hematocrit 33.4 % (42.0-52.0); Hemoglobin 11.9 g/dl (14.0-18.0); Mean Corpuscular HGB Conc 35.6 g/dl (31.0-36.0); Mean Corpuscular Hemoglobin 32.5 pg (27.0-33.0); Mean Corpuscular Volume 91.3 fL (80.0-98.0); Mean Platelet Volume 11.8 fL (9.4-12.4); Platelet Count 109 X10*3/uL (160-400); Red Blood Count 3.66 X10*6/uL (4.60-5.80); Red Cell Distribution Width 12.2 % (11.0-16.0); White Blood Count 8.8 X10*3/uL (4.8-10.8)
[2023-08-10 09:10] LABS: Anion Gap 11 (12-20); Blood Urea Nitrogen 6 mg/dL (9-16); Calcium 7.1 mg/dL (8.4-10.2); Carbon Dioxide 26 mmol/L (22-29); Chloride 96 mmol/L (96-108); Creatinine Clr Calc Pharmacy 126.8; Estimated Glomerular Filt Rate > 60; Glucose Random 100 mg/dL (60-115); Potassium 3.5 mmol/L (3.3-5.1); Sodium 129 mmol/L (135-145)
--- NOTE | 2023-08-10 09:54 | PM.DS ---
DS: Providers Provider Date of Service: 08/10/23 Date of admission: 08/07/23 02:38 Primary care physician: Adelaide Cotto MD Consults: 08/07/23 08:01 Consult to Infectious Diseases [place]ine Consulting Provider[place] [facility] Reason for consultation: Bacteremia 08/07/23 09:58 Consult to Nephrology Routine Consulting Provider: [facility] Reason for consultation: Hyponatremia Has provider been notified: Yes 08/07/23 12:44 Consult to General Surgery Routine Consulting Provider: [facility] Reason for consultation: ? acute cholecystitis Has provider been notified: No 08/09/23 08:51 Consult to Infectious Diseases Routine Consulting Provider: [facility] Reason for consultation: Bacteremia Has provider been notified: No 08/10/23 08:53 Addiction Medicine Routine Consulting Provider: [facility] Reason for consultation: alcoholism DS: Diagnosis Discharge Diagnosis (1) Community acquired pneumonia: Status: Acute (2) Severe sepsis: Status: Resolved (3) Electrolyte imbalance: Status: Resolved DS: Summary Hospital Course Hospital Course: Chief Complaint: Shortness on breath Shay Varner is a 67 years old man with past medical history significant alcohol abuse presents to the emergency department complaining of one-week history of worsening shortness of breath, diarrhea, productive cough and generalized weakness. He denies fever or chills. Denies abdominal pain or diarrhea. Did not report any acute urinary symptoms. According to ED triage note patient was found to be confused and diaphoretic by the family members. Patient is tobacco smoker. Last time he smoked and drank alcohol was about 2 weeks ago. In the ED, he was found to have fever, tachycardia and tachypnea. Blood pressure has been soft. Last blood pressure is 111/60. He was hypoxic on arrival and currently requiring 2 L/min supplemental oxygen via nasal cannula. Head, chest, abdomen, pelvis CT scans are unremarkable (liver is normal) except for findings concerning for infectious/inflammatory process such as bronchopneumonia. Blood workup was remarkable for leukocytosis of 17.3. There is a mild degree of anemia and thrombocytopenia which i are baseline. There is hyponatremia and hypomagnesemia. Bicarb is slightly low. Renal function is adequate. LFTs are elevated. BNP is elevated. TSH is normal. Venous blood gas showed no respiratory acidosis. Urinalysis consistent with urinary tract infection. ED tx: NS 2 L bolus, ceftriaxone 1 g IV, azithromycin 500 mg IV, ketorolac 15 mg IV, aspirin 325 mg PO x1, magnesium sulfate 2 mg IV. Hospital course: Patient resented with sob and found to be hypoxic ,workup showed pneumonia and severe sepsis, with elevated WBC to 19 K. He was initiated on IVF per sepsis protocol and given broad spectrum antibiotics with Ceftriaxone and Azithromycin. Blood cultures later came back positive for gram positive cocci and vancomycin was added. He responded well to treatment, sepsis has resolved, WBC now 8K, hypoxia resolved. Gram positive cocci turned out to be staph species and ID believes it is contamination and as such recommend transitioning to oral Ceftin for total 10 days. He is presently afebrile and breathing comfortably and did not qualify for home oxygen. Alcohol use disorder with Elevated LFTs and history of cholelithiasis, abdominal ultrasound showed cholelithiasis and sludge in neck of gallbladder with diffuse gallbladder wall thickening, mild dilatation of common bile duct of uncertain etiology, correlation with MRCP was recommended if indicated however, clinically patient doesn't appear to have acute cholecystitis, surgery input noted,no indication for surgery. Patient is advised to abstain from alcohol consumption, treated with phenobarb, folic acid and thiamine, patient declined evaluation by Addiction Team, however resources given, patient has been strongly recommended to abstain from alcohol, liver enzymes trended down. Being discharged home with physical therapy services to maximize function and safety. Hyponatremia. likely beer potomania treated with fluid restriction, sodium improved to 131 strongly recommend to abstain from alcohol. Hypomagnesemia. Repleted and corrected. Hypokalemia--corrected with oral replacement. HTN-- continue Lisinopril 10 mg daily. Time Attestation Discharge Coordination Time (in mins): 40 Quality: Safe Use of Opioids Does Pt have an Active Cancer Diagnosis on the Problem List?: No Quality: Stroke Does the patient have a stroke diagnosis?: No Physical Exam Vital Signs: Vital Signs: Last Vital Signs Temp 97.8 F 08/10/23 08:00 Pulse 90 08/10/23 08:00 Resp 20 08/10/23 08:00 BP 129/61 08/10/23 08:00 Pulse Ox 95 08/10/23 08:00 O2 Del Method Nasal Cannula 08/10/23 08:00 O2 Flow Rate 3 08/10/23 08:00 BMI result Body Mass Index 21.4 DS: Data Data Completed and Pending Completed studies during hospitalization [Text1]: Procedures Drainage of Peritoneal Cavity, Percutaneous Approach (03/09/21) Inspection of Lower Intestinal Tract, Via Natural or Artificial Opening Endoscopic (03/09/21) Inspection of Upper Intestinal Tract, Via Natural or Artificial Opening Endoscopic (03/09/21) Labs on day of discharge: Laboratory Results - last 24 hr 08/09/23 08/10/23 11:02 08:17 WBC 8.8 RBC 3.66 L Hgb 11.9 L Hct 33.4 L MCV 91.3 MCH 32.5 MCHC 35.6 RDW 12.2 Plt Count 109 L MPV 11.8 Absolute Nucleated RBC 0.000 Nucleated RBC % (auto) 0.0 Sodium 129 L Potassium 3.5 Chloride 96 Carbon Dioxide 26 Anion Gap 11 L BUN 6 L Creatinine 0.54 Estim Creat Clear Calc 126.8 Estimated GFR > 60 Random Glucose 100 Calcium 7.1 L Random Vancomycin 14.4 L Preliminary micro results at discharge 08/06/23 20:57 Blood Culture - Preliminary Blood - Venous Staphylococcus species 08/06/23 20:23 Blood Culture - Preliminary Blood - Venous Staphylococcus species Discharge Plan Discharge Anticipated Discharge Date/Time: 08/12/23 09:29 Patient Disposition: Home Health Service Discharge Diagnosis: Acute hypoxic respiratory failure Pneumonia Alcoholic liver disease Acute hyponatremia Acute hypokalemia Acute hypomagnesemia Referrals: Shannan Ivey [Outside] - 1 Day ([facility] Adelaide Cotto MD [Primary Care Provider] - 1 Week Discharge Medications: New cefuroxime axetil 500 mg tablet 500 mg PO BID Qty: 10 0RF Continued omeprazole 20 mg Capsule,Delayed Release(Dr/Ec) 20 mg PO BID@0630,1630 Qty: 60 0RF lisinopril 10 mg Tablet 10 mg PO DAILY folic acid 1 mg Tablet 1 mg PO DAILY Discharge Orders: Discharge Order (Routine); Ordered 08/12/23 Ordered By: Radha Tsang Diet: Advance to usual diet Activity on Discharge: As tolerated Stand Alone Forms: Patient Portal Discharge page Print Language: Indonesian Care Plan Goals: Acute hypoxic respiratory failure due to pneumonia resolved Alcohol use disorder treated with phenobarb protocol, patient declined meeting with Addiction Team, outpatient resources provided Alcoholic liver disease liver enzymes trending down strongly recommend to abstain from alcohol Low sodium due to alcohol Hypo magnesemia resolved due to poor nutrition Being discharged home with physical therapy for balance issue to maximize function and safety Health Concerns: Hypertension continue home medication Strongly recommend to abstain from smoking and recommend complete abstinence from alcohol Plan of Treatment: Follow-up with primary care physician call for appointment Assessment: As above Discharge Date/Time: 08/12/23 14:00
[2023-08-10 10:27] LABS: Magnesium 1.6 mg/dL (1.6-2.6)
[2023-08-10] MEDS: Albuterol Sulfate 90 MCG 8 GM INHALER 4 PUFF INHALE ×3 (11:40→19:21)
--- NOTE | 2023-08-10 14:20 | MHC.CM.PN ---
[facility] PT WILL BE MEDICALLY CLEARED HOME SELF CARE W/PT ARRANGING UBER TRANSPORT
--- NOTE | 2023-08-10 19:14 | P.PNNP_ITS ---
Subjective Subjective Date of Service: 08/10/23 Interval history: Doing well, no sob, no fever or chills; All recent data reviewed Physical Exam 2 Vital Signs: Vital Signs: Last Vital Signs Temp 98.3 F 08/10/23 15:34 Pulse 106 H 08/10/23 15:34 Resp 20 08/10/23 15:34 BP 125/65 08/10/23 15:34 Pulse Ox 92 08/10/23 15:34 O2 Del Method Room Air 08/10/23 15:34 O2 Flow Rate 2 08/10/23 12:00 BMI result Body Mass Index 21.4 Const: General: comfortable and no acute distress HEENT: Head: Yes normocephalic Mouth: Normal oral and palatal mucosa present Eyes: EOM: EOMs intact bilaterally Neck: Neck: Yes supple Resp: Auscultation: clear to auscultation bilaterally Cardio: Jugular venous distension: no JVD Rate: regular rate GI: Auscultation: normal bowel sounds Neuro: General: moves all extremities Objective Data Labs 08/10/23 08:17 08/10/23 08:17 Labs: Laboratory Results - last 24 hr 08/10/23 08:17 WBC 8.8 RBC 3.66 L Hgb 11.9 L Hct 33.4 L MCV 91.3 MCH 32.5 MCHC 35.6 RDW 12.2 Plt Count 109 L MPV 11.8 Absolute Nucleated RBC 0.000 Nucleated RBC % (auto) 0.0 Sodium 129 L Potassium 3.5 Chloride 96 Carbon Dioxide 26 Anion Gap 11 L BUN 6 L Creatinine 0.54 Estim Creat Clear Calc 126.8 Estimated GFR > 60 Random Glucose 100 Calcium 7.1 L Magnesium 1.6 Microbiology Microbiology Results: Microbiology 08/06/23 20:57 Blood - Venous Blood Culture - Preliminary Staphylococcus species 08/06/23 20:23 Blood - Venous Blood Culture - Preliminary Staphylococcus species 08/06/23 22:26 Urine clean catch - Urine damon top Urine Culture - Final No growth. Procedures Date of Service Date of Service: 08/10/23 Assessment & Plan Assessment and plan (1) Hyponatremia: Status: Acute Plan Hyponatremia in a setting of excessive alcohol intake Serum sodium stable; Restrict PO water intake Should be able to start Spironolactone 25 mg daily Continue rest of current supportive management for now Progress Note: Quality Stroke Does the patient have a stroke diagnosis?: No
[2023-08-10] MEDS: Azithromycin 500 MG in 0.9 % Sodium Chloride 250 ML 125 MG IV (19:51)
[2023-08-10] MEDS: cefTRIAXone sodium 1 GM in 0.9 % Sodium Chloride 50 ML IV (19:55)
[2023-08-11] VITALS (9 sets, daily range): BP systolic 107–130; BP diastolic 62–74; PULSE 87–99; RESP 16–19; TEMP 36.4–37.2; O2SAT 92–98
[2023-08-11] MEDS: Omeprazole 20 MG CAPSULE.DR PO ×2 (06:32→16:39)
[2023-08-11 07:02] LABS: Anion Gap 9 (12-20); Blood Urea Nitrogen 5 mg/dL (9-16); Calcium 7.4 mg/dL (8.4-10.2); Carbon Dioxide 29 mmol/L (22-29); Chloride 96 mmol/L (96-108); Creatinine Clr Calc Pharmacy 105.4; Estimated Glomerular Filt Rate > 60; Glucose Random 104 mg/dL (60-115); Potassium 3.6 mmol/L (3.3-5.1); Sodium 130 mmol/L (135-145)
[2023-08-11] MEDS: Albuterol Sulfate 90 MCG 8 GM INHALER 4 PUFF INHALE ×3 (07:38→15:56)
[2023-08-11] MEDS: PHENobarbitaL 15 MG TABLET PO ×2 (08:08→21:59)
[2023-08-11] MEDS: Folic Acid 1 MG TABLET PO (08:08)
[2023-08-11] MEDS: lisinopriL 10 MG TABLET PO (08:08)
[2023-08-11] MEDS: Thiamine HCL 100 MG TABLET PO (08:08)
[2023-08-11] MEDS: Multivitamin TABLET 1 TAB PO (08:08)
[2023-08-11] MEDS: 0.9 % Sodium Chloride Flush 3 ML SYRINGE IVFLUSH ×2 (08:09→16:40)
--- NOTE | 2023-08-11 11:59 | W.MHC.F2F ---
Service Date Service Date: 08/11/23 Encounter Date of encounter: 08/11/23 Reasons for Services Signs and symptoms assessed: Severe sepsis due to pneumonia, hyponatremia, generalized weakness, elevated LFTs, hyponatremia, alcohol use disorder, electrolyte abnormality Reason for retirement: neurological assessment Reason for physical therapy: home safety and mobility Homebound: Leaving the home is medically contraindicated at this time without the asist of a device and/or another person due th the listed conditions above and below. Reason homebound: poor balance / fall risk and weakness related to hospital stay Homebound supporting statement: Generalized weakness Certification: Based on the above findings, I certify that this patient is confined to the home and needs intermittent retirement care, physical therapy and/or speech therapy, or continues to need occupational therapy. The patient is under my care, and I have initiated the establishment of the plan of care. The patient will be followed by a physician who will periodically review the plan of care. Time Spent With Patient Time: Total time managing care of this patient today ____ minutes.
--- NOTE | 2023-08-11 12:04 | P.PNIM_ITS ---
Subjective Subjective Date of Service: 08/11/23 Interval History: Being followed for sepsis and pneumonia denies fever, no chills, shortness of breath has improved, noted to have persistent balance challenges seen by Physical therapy they recommend home physical therapy, no acute events overnight. Review of Systems All other system reviewed and negative Physical Exam 2 Vital Signs: Vital Signs: Last Vital Signs Temp 97.6 F 08/11/23 11:29 Pulse 94 08/11/23 11:36 Resp 18 08/11/23 11:36 BP 112/67 08/11/23 11:29 Pulse Ox 92 08/11/23 11:29 O2 Del Method Room Air 08/11/23 11:29 O2 Flow Rate 2 08/10/23 12:00 BMI result Body Mass Index 21.4 Const: Other: General awake alert x3, resting comfortably in no acute distress. Neck supple no JVD. CVS regular rate rhythm, Respiratory lungs clear to auscultation, no respiratory distress, no wheeze, no rhonchi. Gastrointestinal abdomen soft, bowel sounds audible, no right upper quadrant tenderness, no guarding , no rigidity. Extremities no edema. Neuro non focal Skin no rash Appropriate affect Objective Data Active Medications Albuterol Sulfate (Albuterol Sulfate 90 Mcg 8 Gm Inhaler) 4 puff INHALE RQ4H WHILE AWAKE [facility] Last Admin: 08/11/23 11:36 Dose: 4 puff Documented By: OMA Folic Acid (Folic Acid 1 Mg Tablet) 1 mg PO DAILY [facility] Last Admin: 08/11/23 08:08 Dose: 1 mg Documented By: TORSTEN Azithromycin 500 mg/ Sodium (Chloride) 250 mls @ 125 mls/hr IV Q24H [facility] Last Infusion: 08/10/23 21:51 Dose: Infused Documented By: HELEN Ceftriaxone Sodium 1 gm/ (Sodium Chloride) 50 mls @ 100 mls/hr IV Q24H [facility] Last Infusion: 08/10/23 20:25 Dose: Infused Documented By: HELEN Ibuprofen (Ibuprofen 200 Mg Tablet) 200 mg PO Q6H PRN PRN Reason: fever Last Admin: 08/08/23 04:35 Dose: 200 mg Documented By: MONTEIR Lisinopril (Lisinopril 10 Mg Tablet) 10 mg PO DAILY [facility]; Protocol Last Admin: 08/11/23 08:08 Dose: 10 mg Documented By: TORSTEN Multivitamins/Vitamin C (Multivitamin Tablet) 1 tab PO DAILY [facility] Last Admin: 08/11/23 08:08 Dose: 1 tab Documented By: TORSTEN Omeprazole (Omeprazole 20 Mg Capsule.) 20 mg PO BID@0630,1630 [facility] Last Admin: 08/11/23 06:32 Dose: 20 mg Documented By: BRENDA Pharmacy Consult (Consult Rx Etoh Phenob Im/Po) 1 each MISCELLANE ONCE PRN; Protocol PRN Reason: Consult order Phenobarbital (Phenobarbital 15 Mg Tablet) 15 mg PO BID [facility] Stop: 08/12/23 21:01 Last Admin: 08/11/23 08:08 Dose: 15 mg Documented By: TORSTEN Phenobarbital (Phenobarbital 15 Mg Tablet) 15 mg PO DAILY [facility] Stop: 08/14/23 09:01 Sodium Chloride (0.9 % Sodium Chloride Flush 3 Ml Syringe) 3 ml IVFLUSH QSHIFT [facility] Last Admin: 08/11/23 08:09 Dose: 3 ml Documented By: TORSTEN Thiamine HCl (Thiamine Hcl 100 Mg Tablet) 100 mg PO DAILY [facility] Last Admin: 08/11/23 08:08 Dose: 100 mg Documented By: TORSTEN Labs 08/10/23 08:17 08/11/23 06:05 Labs: Laboratory Results - last 24 hr 08/11/23 06:05 Hold Purple Top SEE NOTE Anion Gap 9 L Estim Creat Clear Calc 105.4 Estimated GFR > 60 Random Glucose 104 Calcium 7.4 L Assessment and Plan (1) Community acquired pneumonia: Status: Acute (2) Severe sepsis: Status: Acute (3) Alcoholic cirrhosis of liver with ascites: Status: Acute (4) Electrolyte imbalance: Status: Acute Plan 67/m with alcoholic liver cirrhosis here with sepsis d/t PNA and gram positive cocci bacteremia Acute Hypoxic respiratory failure secondary to bronchopneumonia/bacteremia Hypoxia resolved, blood cultures x2 grew Staph species , seen by infectious disease she thinks Staph likely contamination and recommend azithromycin and ceftriaxone for 3-4 days followed by Ceftin for 10 days ,continue bronchodilators prn, supportive care Diarrhea related to antibiotics resolved. Seen by Physical therapy they recommend home PT. Staph Species bacteremia--see above UTI--initially thought to have UTI urine culture showed no growth Elevated LFTs secondary to alcohol abuse. History of cholelithiasis, clinically doesn't appear to have cholecystitis, sugery input noted no indication for surgery.. Patient is advised to abstain from alcohol consumption. Continue to monitor. Abdominal ultrasound showed 1. Cholelithiasis and sludge in the neck of the gallbladder with diffuse gallbladder wall thickening which could be seen in the setting of acute cholecystitis in the appropriate clinical setting. 2. Mild dilatation of the CBD of uncertain etiology. If indicated,correlation with MRCP could be obtained. Since patient asymptomatic LFTs trending down no further workup required. Hyponatremia. likely from Hypervolemic state from chronic alcohol liver disease vs beer potomania, fluid restriction 1500, Repeat sodium improved to 130 , follow labs Hypomagnesemia. Repleted and corrected, will follow labs Hypokalemia--resolved follow labs HTN--BP stable continue lisinopril 10 mg daily Alcoholic liver disease. on thiamine, folic acid and multivitamins. Phenobarbita protocol for withdrawal, addiction consult pending patient drinks 4-6 beer daily noted to have multiple electrolyte abnormality hypoalbuminemia due to poor nutrition, added protein supplements. DVT prophylaxis: SubQ Lovenox Code status: Full need for inpatient for bronchopneumonia + bacteremia treatment with supplemental oxygen, and IV antibiotics and bronchodilator therapy Quality Stroke Does the patient have a stroke diagnosis?: No VTE Prior VTE?: No VTE Risk Level:: Medical - moderate - high VTE Device Contraindication: Treatment Not Indicated VTE Drug Contraindication: N/A - Med Ordered
[2023-08-11] MEDS: Enoxaparin Sodium 40 MG/0.4 ML SYRINGE SUBCUT (13:02)
--- NOTE | 2023-08-11 14:14 | P.PNNP_ITS ---
Subjective Subjective Date of Service: 08/11/23 Interval history: Events noted Physical Exam 2 Vital Signs: Vital Signs: Last Vital Signs Temp 97.6 F 08/11/23 11:29 Pulse 94 08/11/23 11:36 Resp 18 08/11/23 11:36 BP 112/67 08/11/23 11:29 Pulse Ox 92 08/11/23 11:29 O2 Del Method Room Air 08/11/23 11:29 O2 Flow Rate 2 08/10/23 12:00 BMI result Body Mass Index 21.4 Const: General: comfortable Nutritional Appearance: well nourished O rientation/consciousness: patient oriented x3 HEENT: Head: No normal to inspection Mouth: moist mucous membranes Neck: Neck: Yes supple and Yes no JVD Resp: Auscultation: clear to auscultation bilaterally, no rales and rub present Cardio: Jugular venous distension: no JVD Palpation: no palpable S3 and no palpable S4 Heart sounds: no rubs GI: Palpation (GI): Soft to palpation and nontender Percussion: No Fluid wave present : General: Yes no CVA tenderness Back/Spine/Pelvis: Back: no CVA tenderness Skin: General skin exam: no rashes or lesions noted Neuro: General: patient oriented x3 Extrem: General: Yes edema Objective Data Labs 08/10/23 08:17 08/11/23 06:05 Labs: Laboratory Results - last 24 hr 08/11/23 06:05 Hold Purple Top SEE NOTE Sodium 130 L Potassium 3.6 Chloride 96 Carbon Dioxide 29 Anion Gap 9 L BUN 5 L Creatinine 0.65 Estim Creat Clear Calc 105.4 Estimated GFR > 60 Random Glucose 104 Calcium 7.4 L Microbiology Microbiology Results: Microbiology 08/06/23 20:57 Blood - Venous Blood Culture - Preliminary Staphylococcus species 08/06/23 20:23 Blood - Venous Blood Culture - Preliminary Staphylococcus species 08/06/23 22:26 Urine clean catch - Urine damon top Urine Culture - Final No growth. Procedures Date of Service Date of Service: 08/11/23 Assessment & Plan Assessment and plan (1) Electrolyte imbalance: Status: Acute (2) Alcoholic cirrhosis of liver with ascites: Status: Acute Plan Hyponatremia in a setting of excessive alcohol intake Decreased free water clearance Sodium is gradually improving No need for hypotonic saline Restrict PO water intake Time Spent With Patient Time: Total time managing care of this patient today ____ minutes. Progress Note: Quality Stroke Does the patient have a stroke diagnosis?: No
--- NOTE | 2023-08-11 14:59 | PM.EVENT ---
Event Note Date of Service: 08/11/23 Event Note: Addiction consult placed for patient with AUD Patient declined meeting with this investigative writer my drinking is fine Accepted folder with resources. Encouraged to reach out should he change his mind Time Spent With Patient Time: Total time managing care of this patient today ____ minutes.
--- NOTE | 2023-08-11 15:02 | MHC.CM.PN ---
CM MET WITH PT WHO WAS FIRST AGREEABLE TO STR THEN CHANGED MIND AND REQUESTED TO GO HOME. [facility] SUPP[facility]TS THIS. REFERRAL MADE TO [facility] . CLINICAL PAPERWORK SUBMITTED TO [facility] VIA FAX( [phone]) TO SUBMIT FOR AUTH. [facility] UPDATED. CM WILL CONTINUE TO FOLLOW FOR ANY CHANGE TO DC NEEDS/PLAN
[2023-08-11] MEDS: Azithromycin 500 MG in 0.9 % Sodium Chloride 250 ML 125 MG IV (22:04)
[2023-08-12] VITALS: BP 116/64; PULSE 94; RESP 18; TEMP 37.7; O2SAT 92
[2023-08-12] MEDS: cefTRIAXone sodium 1 GM in 0.9 % Sodium Chloride 50 ML IV (00:27)
[2023-08-12] MEDS: 0.9 % Sodium Chloride Flush 3 ML SYRINGE IVFLUSH ×2 (00:27→09:54)
[2023-08-12 04:00] VITALS: BP 115/63; PULSE 90; RESP 17; TEMP 37.7; O2SAT 93
[2023-08-12] MEDS: Omeprazole 20 MG CAPSULE.DR PO (05:46)
[2023-08-12 06:51] LABS: Alanine Aminotransferase 76 U/L (0-40); Alkaline Phosphatase 54 U/L (39-117); Anion Gap 9 (12-20); Aspartate Amino Transferase 40 U/L (5-37); Bilirubin Direct 0.5 mg/dL (0.0-0.5); Bilirubin Total 0.7 mg/dL (0.0-1.0); Blood Urea Nitrogen 7 mg/dL (9-16); Calcium 7.4 mg/dL (8.4-10.2); Carbon Dioxide 29 mmol/L (22-29); Chloride 97 mmol/L (96-108); Creatinine Clr Calc Pharmacy 103.8; Estimated Glomerular Filt Rate > 60; Glucose Random 114 mg/dL (60-115); Magnesium 1.7 mg/dL (1.6-2.6); Potassium 3.6 mmol/L (3.3-5.1); Sodium 131 mmol/L (135-145); Total Protein 4.7 g/dL (6.5-8.0)
[2023-08-12 07:24] VITALS: BP 131/63; PULSE 86; RESP 18; TEMP 37.3; O2SAT 92
--- NOTE | 2023-08-12 08:20 | PC.RT ---
Shay Spo2 88%, back on NC 2L. RN aware
[2023-08-12] MEDS: Multivitamin TABLET 1 TAB PO (09:53)
[2023-08-12] MEDS: lisinopriL 10 MG TABLET PO (09:54)
[2023-08-12] MEDS: Thiamine HCL 100 MG TABLET PO (09:54)
[2023-08-12] MEDS: PHENobarbitaL 15 MG TABLET PO (09:54)
[2023-08-12] MEDS: Folic Acid 1 MG TABLET PO (09:54)
[2023-08-12] MEDS: Albuterol Sulfate 90 MCG 8 GM INHALER 2 PUFF INHALE (10:14)
[2023-08-12 10:18] VITALS: PULSE 89; RESP 18; O2SAT 94
[2023-08-12 11:05] VITALS: BP 122/65; PULSE 92; RESP 18; TEMP 37.1; O2SAT 95
[2023-08-12 11:37] VITALS: PULSE 121; PULSE 91; O2SAT 91; O2SAT 95
--- NOTE | 2023-08-12 11:44 | MHC.CM.PN ---
Addendum entered by Izabela Hampton RN 08/12/23 12:31: PT WILL TAKE [facility] SHUTTLE HOME AT 2PM Original Note: PT MEDICALLY CLEARED FOR DC HOME W/[facility] FOR SN/PT, CM WILL MEET W/PT TO DETERMINE IF HE NEEDS TRANSPORT
--- NOTE | 2023-08-12 12:09 | P.DS_ITS ---
DS: Providers Provider Date of Service: 08/12/23 Date of admission: 08/07/23 02:38 Primary care physician: Adelaide Cotto MD Consults: 08/07/23 08:01 Consult to Infectious Diseases Routine Consulting Provider: [facility] Infectious Disease Reason for consultation: Bacteremia 08/07/23 09:58 Consult to Nephrology Routine Consulting Provider: [facility] Reason for consultation: Hyponatremia Has provider been notified: Yes 08/07/23 12:44 Consult to General Surgery Routine Consulting Provider: [facility] Reason for consultation: ? acute cholecystitis Has provider been notified: No 08/09/23 08:51 Consult to Infectious Diseases Routine Consulting Provider: [facility] Infectious Disease Reason for consultation: Bacteremia Has provider been notified: No 08/10/23 08:53 Addiction Medicine Routine Consulting Provider: Addiction Covering Reason for consultation: alcoholism DS: Diagnosis Discharge Diagnosis (1) Elevated LFTs: Status: Acute DS: Summary Hospital Course Hospital Course: Chief Complaint: Shortness on breath Shay Varner is a 67 years old man with past medical history significant alcohol abuse presents to the emergency department complaining of one-week history of worsening shortness of breath, diarrhea, productive cough and generalized weakness. He denies fever or chills. Denies abdominal pain or diarrhea. Did not report any acute urinary symptoms. According to ED triage note patient was found to be confused and diaphoretic by the family members. Patient is tobacco smoker. Last time he smoked and drank alcohol was about 2 weeks ago. In the ED, he was found to have fever, tachycardia and tachypnea. Blood pressure has been soft. Last blood pressure is 111/60. He was hypoxic on arrival and currently requiring 2 L/min supplemental oxygen via nasal cannula. Head, chest, abdomen, pelvis CT scans are unremarkable (liver is normal) except for findings concerning for infectious/inflammatory process such as bronchopneumonia. Blood workup was remarkable for leukocytosis of 17.3. There is a mild degree of anemia and thrombocytopenia which i are baseline. There is hyponatremia and hypomagnesemia. Bicarb is slightly low. Renal function is adequate. LFTs are elevated. BNP is elevated. TSH is normal. Venous blood gas showed no respiratory acidosis. Urinalysis consistent with urinary tract infection. ED tx: NS 2 L bolus, ceftriaxone 1 g IV, azithromycin 500 mg IV, ketorolac 15 mg IV, aspirin 325 mg PO x1, magnesium sulfate 2 mg IV. Hospital course: Patient resented with sob and found to be hypoxic ,workup showed pneumonia and severe sepsis, with elevated WBC to 19 K. He was initiated on IVF per sepsis protocol and given broad spectrum antibiotics with Ceftriaxone and Azithromycin. Blood cultures later came back positive for gram positive cocci and vancomycin was added. He responded well to treatment, sepsis has resolved, WBC now 8K, hypoxia resolved. Gram positive cocci turned out to be staph species and ID believes it is contamination and as such recommend transitioning to oral Ceftin for total 10 days. He is presently afebrile and breathing comfortably and did not qualify for home oxygen. Alcohol use disorder with Elevated LFTs and history of cholelithiasis, abdominal ultrasound showed cholelithiasis and sludge in neck of gallbladder with diffuse gallbladder wall thickening, mild dilatation of common bile duct of uncertain etiology, correlation with MRCP was recommended if indicated however, clinically patient doesn't appear to have acute cholecystitis, surgery input noted,no indic ation for surgery. Patient is advised to abstain from alcohol consumption, treated with phenobarb, folic acid and thiamine, patient declined evaluation by Addiction Team, however resources given, patient has been strongly recommended to abstain from alcohol, liver enzymes trended down. Being discharged home with physical therapy services to maximize function and safety. Hyponatremia. likely beer potomania treated with fluid restriction, sodium improved to 131 strongly recommend to abstain from alcohol. Hypomagnesemia. Repleted and corrected. Hypokalemia--corrected with oral replacement. HTN-- continue Lisinopril 10 mg daily. Time Attestation Discharge Coordination Time (in mins): 38 Quality: Safe Use of Opioids Does Pt have an Active Cancer Diagnosis on the Problem List?: No Quality: Stroke Does the patient have a stroke diagnosis?: No Physical Exam Vital Signs: Vital Signs: Last Vital Signs Temp 98.8 F 08/12/23 11:05 Pulse 92 08/12/23 11:05 Resp 18 08/12/23 11:05 BP 122/65 08/12/23 11:05 Pulse Ox 95 08/12/23 11:05 O2 Del Method Room Air 08/12/23 11:05 O2 Flow Rate 2 08/10/23 12:00 BMI result Body Mass Index 21.4 Const: Other: General awake alert x3, resting comfortably in no acute distress. Neck supple no JVD. CVS regular rate rhythm, Respiratory lungs clear to auscultation, no respiratory distress, no wheeze, no rhonchi. Gastrointestinal abdomen soft, bowel sounds audible, no right upper quadrant tenderness, no guarding , no rigidity. Extremities no edema. Neuro non focal Skin no rash Appropriate affect DS: Data Data Completed and Pending Completed studies during hospitalization [Text1]: Procedures Drainage of Peritoneal Cavity, Percutaneous Approach (03/09/21) Inspection of Lower Intestinal Tract, Via Natural or Artificial Opening Endoscopic (03/09/21) Inspection of Upper Intestinal Tract, Via Natural or Artificial Opening Endoscopic (03/09/21) Labs on day of discharge: Laboratory Results - last 24 hr 08/12/23 06:08 Sodium 131 L Potassium 3.6 Chloride 97 Carbon Dioxide 29 Anion Gap 9 L BUN 7 L Creatinine 0.66 Estim Creat Clear Calc 103.8 Estimated GFR > 60 Random Glucose 114 Calcium 7.4 L Magnesium 1.7 Total Bilirubin 0.7 Direct Bilirubin 0.5 AST 40 H ALT 76 H Alkaline Phosphatase 54 Total Protein 4.7 L Albumin 2.0 L Preliminary micro results at discharge 08/06/23 20:57 Blood Culture - Preliminary Blood - Venous Staphylococcus species 08/06/23 20:23 Blood Culture - Preliminary Blood - Venous Staphylococcus species Discharge Plan Discharge Anticipated Discharge Date/Time: 08/12/23 09:29 Patient Disposition: Home Health Service Discharge Diagnosis: Acute hypoxic respiratory failure Pneumonia Alcoholic liver disease Acute hyponatremia Acute hypokalemia Acute hypomagnesemia Referrals: Shannan Ivey [Outside] - 3-5 Days ([facility] AND HOME PT) Adelaide Cotto MD [Primary Care Provider] - 1 Week Discharge Medications: New cefuroxime axetil 500 mg tablet 500 mg PO BID Qty: 10 0RF Continued omeprazole 20 mg Capsule,Delayed Release(Dr/Ec) 20 mg PO BID@0630,1630 Qty: 60 0RF lisinopril 10 mg Tablet 10 mg PO DAILY folic acid 1 mg Tablet 1 mg PO DAILY Discharge Orders: Discharge Order (Routine); Ordered 08/12/23 Ordered By: Radha Tsang Diet: Advance to usual diet Activity on Discharge: As tolerated Stand Alone Forms: Patient Portal Discharge page Print Language: Iranian Care Plan Goals: Acute hypoxic respiratory failure due to pneumonia resolved Alcohol use disorder treated with phenobarb protocol, patient declined meeting with Addiction Team, outpatient resources provided Alcoholic liver disease liver enzymes trending down strongly recommend to abstain from alcohol Low sodium due to alcohol Hypo magnesemia resolved due to poor nutrition Being discharged home with physical therapy for balance issue to maximize function and safety Health Concerns: Hypertension continue home medication Strongly recommend to abstain from smoking and recommend complete abstinence from alcohol Plan of Treatment: Follow-up with primary care physician call for appointment Assessment: As above
== END 2023-08-12 14:00 | disposition home health service (06) | DRG 871 ==
LOC: HO.ED 22:00 → HO.EDOVER 08-07 02:44 → HO.IMC 08-08 16:47
PROVIDERS: Internal Medicine; Internal Medicine Hypertension Specialist; Physician Assistant; Student in an Organized Health Care Education/Training Program; Admitting Provider Internal Medicine; Emergency Provider Emergency Medicine Emergency Medical Services; PCP Family Medicine; Referring Provider Family Medicine; Visit Provider Hospitalist
DX: A41.9 Sepsis, unspecified organism (principal); J18.9 Pneumonia, unspecified organism; J96.01 Acute respiratory failure with hypoxia; E87.1 Hypo-osmolality and hyponatremia; K76.6 Portal hypertension; K52.1 Toxic gastroenteritis and colitis; R65.20 Severe sepsis without septic shock; I10 Essential (primary) hypertension; D69.6 Thrombocytopenia, unspecified; T36.95XA Adverse effect of unspecified systemic antibiotic, initial encounter; K31.89 Other diseases of stomach and duodenum; F10.10 Alcohol abuse, uncomplicated; F17.210 Nicotine dependence, cigarettes, uncomplicated; Z71.6 Tobacco abuse counseling; K70.31 Alcoholic cirrhosis of liver with ascites; E83.42 Hypomagnesemia; E87.6 Hypokalemia; Z20.822 Contact with and (suspected) exposure to COVID-19; Z79.899 Other long term (current) drug therapy
CPT/HCPCS: 0241U; 36415; 70450; 71045; 71275; 74177; 76705; 80048; 80053; 80076; 80202; 80307; 81001; 82140; 82565; 82803; 83605; 83690; 83735; 83880; 83930; 83935; 84300; 84443; 84484; 85025; 85027; 85610; 85730; 87040; 87077; 87086; 87186; 87205; 93005; 93306; 94640; 97116; 97162; 99285; J0456; J0696; J1650; J1885; J2560; J3370; J3371; J3475; J7120; Q9967

== ENCOUNTER → 2023-08-06 19:56 | Outpatient (BNV) | payer OTHER, SELFPAY | PROVIDERS: Admitting Provider Internal Medicine; Emergency Provider Emergency Medicine Emergency Medical Services; PCP Family Medicine; Visit Provider Internal Medicine Cardiovascular Disease | DX: R00.0 Tachycardia, unspecified (principal); R94.31 Abnormal electrocardiogram [ECG] [EKG] | CPT/HCPCS: 93010 ==

== ENCOUNTER 2023-08-07 02:38 | Outpatient (BNV) | payer OTHER, SELFPAY | END 2023-08-08 07:00 | PROVIDERS: Admitting Provider Internal Medicine; Emergency Provider Emergency Medicine Emergency Medical Services; PCP Family Medicine; Visit Provider Internal Medicine Cardiovascular Disease | DX: I49.3 Ventricular premature depolarization (principal) | CPT/HCPCS: 93010; 93306 ==

== ENCOUNTER → 2023-08-07 02:38 | Outpatient (BNV) | payer OTHER, SELFPAY | PROVIDERS: Admitting Provider Internal Medicine; Emergency Provider Emergency Medicine Emergency Medical Services; PCP Family Medicine; Visit Provider Nurse Practitioner Psychiatric/Mental Health | DX: F10.90 Alcohol use, unspecified, uncomplicated (principal) | CPT/HCPCS: 99221 ==

== ENCOUNTER → 2023-08-07 02:38 | Outpatient (BNV) | payer OTHER, SELFPAY | PROVIDERS: Admitting Provider Internal Medicine; Emergency Provider Emergency Medicine Emergency Medical Services; PCP Family Medicine; Visit Provider Internal Medicine | DX: A41.9 Sepsis, unspecified organism (principal); R65.20 Severe sepsis without septic shock; K70.31 Alcoholic cirrhosis of liver with ascites; J18.9 Pneumonia, unspecified organism | CPT/HCPCS: 99222 ==

== ENCOUNTER → 2023-08-07 02:38 | Outpatient (BNV) | payer OTHER, SELFPAY | PROVIDERS: Admitting Provider Internal Medicine; Emergency Provider Emergency Medicine Emergency Medical Services; PCP Family Medicine; Visit Provider Internal Medicine Nephrology | DX: E87.8 Other disorders of electrolyte and fluid balance, not elsewhere classified (principal); K70.31 Alcoholic cirrhosis of liver with ascites | CPT/HCPCS: 99223; 99232; 99499 ==

== ENCOUNTER → 2023-08-07 02:38 | Outpatient (BNV) | payer OTHER, SELFPAY | PROVIDERS: Admitting Provider Internal Medicine; Emergency Provider Emergency Medicine Emergency Medical Services; PCP Family Medicine; Visit Provider Internal Medicine | DX: A41.9 Sepsis, unspecified organism (principal); R65.20 Severe sepsis without septic shock; J18.9 Pneumonia, unspecified organism; K70.31 Alcoholic cirrhosis of liver with ascites | CPT/HCPCS: 99223; 99232; 99233; 99239; 99499; G0180 ==

== ENCOUNTER → 2023-08-07 02:38 | Outpatient (BNV) | payer OTHER, SELFPAY | PROVIDERS: Admitting Provider Internal Medicine; Emergency Provider Emergency Medicine Emergency Medical Services; PCP Family Medicine; Visit Provider Surgery | DX: K70.31 Alcoholic cirrhosis of liver with ascites (principal); R74.01 Elevation of levels of liver transaminase levels | CPT/HCPCS: 99222; 99232 ==

== ENCOUNTER 2024-06-05 03:49 | Emergency (ER) | payer OTHER, SELFPAY ==
--- NOTE | ~2024-06-05 | XR_ITS ---
CLINICAL HISTORY: fall 2 view left knee Comparison: None Findings: Bones intact. No dislocations. No significant arthritic change or erosions. Vascular calcium. No joint effusion. No radiopaque foreign body. IMPRESSION: 1. No acute findings. This document has been electronically signed by: Krystle Gregorio MD on 06/05/2024 05:24:10
[2024-06-05 04:13] VITALS: BP 143/71; BP 145/74; PULSE 77; PULSE 87; RESP 20; TEMP 37; O2SAT 98; O2SAT 99; BMI 22.1
--- NOTE | 2024-06-05 05:58 | PC.NURSE ---
pt resting in bed, xray completed, pt awaiting provider.
[2024-06-05 06:25] VITALS: BP 141/72; PULSE 77; RESP 16; TEMP 37.4; O2SAT 95
--- NOTE | 2024-06-05 06:45 | PC.NURSE ---
pt awaiting to be seen.
[2024-06-05] MEDS: Ketorolac Tromethamine 30 MG/ML VIAL IM (08:14)
--- NOTE | 2024-06-05 08:14 | ED_ITS ---
HPI - Fall General Chief Complaint: Fall Stated Complaint: LT KNEE PAIN S/P FALL YESTERDAY MORNING Time Seen by Provider: 06/05/24 07:27 Source: patient, EMS, RN notes reviewed and old records reviewed Mode of arrival: EMS History of Present Illness ED Provider: Jennifer Powell PA-C HPI Narrative: 68-year-old male with a past medical history HTN, ETOH abuse, HLD, presenting to the ED complaining of left knee pain s/p mechanical trip and fall on ice yesterday while shoveling. Admits to landing on knee, denies head trauma or LOC. has been ambulatory with pain after incident. Denies numbness, tingling, weakness, injury to other area. Denies anticoagulation use Related Data Home Medications ?Medication ?Instructions ?Recorded ?Confirmed folic acid 1 mg tablet 1 mg PO DAILY 08/07/23 08/07/23 lisinopril 10 mg tablet 10 mg PO DAILY 08/07/23 08/07/23 Previous Rx's ?Medication ?Instructions ?Recorded omeprazole 20 mg capsule,delayed 20 mg PO BID@0630,1630 #60 caps 03/12/21 release cefuroxime axetil 500 mg tablet 500 mg PO BID #10 tabs 08/12/23 acetaminophen 500 mg tablet 500 mg PO Q6H PRN fever or pain 06/05/24 (Tylenol Extra Strength) #14 tabs morphine 15 mg immediate release 15 mg PO Q6H PRN pain (scale score 06/05/24 tablet 7-10) 3 days #5 tabs naproxen 500 mg tablet 500 mg PO BID PRN pain 10 days #20 06/05/24 tabs Allergies Allergy/AdvReac Type Severity Reaction Status Date / Time No Known Allergies Allergy Verified 06/05/24 04:28 [No Known Allergies*] Review of Systems Review of Systems: Yes all other systems are reviewed and are negative Constitutional: Constitutional: Reports as per [facility] Past Medical History Attestation statement: The following information was validated with the patient. Source: old records reviewed Medical History Alcoholic cirrhosis of liver with ascites Smoker History of sigmoidoscopy Liver disease, alcoholic Alcohol abuse Hypertension Hypercholesterolemia Left ventricular hypertrophy Aortic root dilatation Surgical History History of surgery of head H/O colonoscopy History of esophagogastroduodenoscopy (EGD) Social History Social History Household Members: None Housing: House Do you presently have visiting nurse or other home services: No Alcohol intake: current Alcohol intake frequency: a few times a week Alcohol type: beer and hard liquor Patient Tobacco Use Status: Former Tobacco user Tobacco use type: Cigarette Cigarettes Per Day: 7 Years Smoked: 55 Smoked in Last 30 Days: Yes Second Hand Smoke Exposure: No Use of substances other than those prescribed or required for medical reasons: Yes Substance Use Type: Marijuana Advance Directives: Yes Advance Directives on File: Yes Advance Directives Date on File: 08/08/23 Do you have a plan to hurt others: No Plan service: Yes Current occupational status: retired Physical Exam Vital Signs: Vital Signs: Last Vital Signs Temp 99.3 F 06/05/24 09:17 Pulse 86 06/05/24 09:17 Resp 16 06/05/24 09:17 BP 122/67 06/05/24 09:17 Pulse Ox 95 06/05/24 09:17 O2 Del Method Room Air 06/05/24 09:17 BMI result Body Mass Index 22.1 Const: General: cooperative, healthy appearing and no acute distress Orientation/consciousness: patient oriented x3 Limitations: no limitations HEENT: Head: Yes normal to inspection and Yes atraumatic Ears: hearing grossly normal bilaterally General nose exam: Normal external nose present Face and sinus: Yes normal facial exam Eyes: General: appearance normal, both eyes and all related structures EOM: EOMs intact bilaterally Neck: Neck: Yes normal visual inspection and Yes no meningeal signs Resp: Effort & Inspection: normal respiratory effort and no respiratory distress Cardio: Rate: regular rate Skin: Rashes: no rashes Wounds: no wounds Neuro: General: patient oriented x3, tone normal and no meningeal signs Cranial nerves: Yes CN's II-XII intact bilaterally Gait exam (Neuro): Normal gait present Extrem: Other: Left knee with appreciable swelling. Tender to palpation greatest to lateral aspect. Limited ROM secondary to pain. Neurovascularly intact distally. No erythema or warmth. No crepitus Course Course Course Narrative: -X-ray unremarkable > Molina wrap and crutches applied. Is to follow up with Orthopedics Results discussed with patient including worrisome signs and symptoms and strict return precautions, and when to return to the emergency department. They verbalized understanding and feel safe for discharge at this time. Medications Administered Discontinued Medications Generic Name Dose Route Start Last Admin Trade Name Barbara PRN Reason Stop Dose Admin Ketorolac Tromethamine 30 mg 06/05/24 07:55 06/05/24 08:14 Ketorolac Tromethamine 30 Mg/Ml Vial IM 06/05/24 07:56 30 mg ONCE ONE Administration Medical Decision Making Medical Decision Making MDM Narrative: 68-year-old male with a past medical history HTN, ETOH abuse, HLD, presenting to the ED complaining of left knee pain s/p mechanical trip and fall on ice yesterday while shoveling. On exam vital signs stable, NAD, nontoxic appearing, physical exam as noted above. Concern for fracture vs strain vs meniscal injury. No evidence of septic joint/arthritis Plan: X-ray, pain control Please refer to course for remaining clinical decision making, interpretation of labs/imaging results, and discussions with consultants and/or family members. Differential Diagnosis Differential Diagnoses: The differential diagnosis associated with the presentation includes As above Independent Interpretation I performed an independent interpretation of an: Plain X-Ray Radiology Impression Discussion of test interpretation with radiology: I have reviewed the radiologist's reading. External Record Review External record reviewed: Inpatient record, Office record, Outpatient record, Prior outpatient labs, Prior outpatient radiology, Primary care record and Outside ED record Tests considered The following testing was considered but not selected: As above Prescription Management I considered prescription management with: Pain Medication Chronic Conditions Patient?s care impacted by: Other Social Determinants Patient?s care significantly limited by Social Determinants of Health including: Alcoholism and drug addiction in family and Other Social Determinant of Health Discharge Plan Discharge Clinical Impression: Injury of knee Patient Disposition: Home, Self-Care Instructions: Knee Sprain (DC) Additional Instructions: Your knee x-rays unremarkable It is likely strained or sprained your knee You may need an MRI outpatient Wear Molina wrap for compression and stability Use crutches as needed Take naproxen and Tylenol at home for pain relief/inflammation In addition morphine as an opiate pain medication, take only when pain is severe for the next 3 days If area begins to look infected is red, warm, return to the ED Prescriptions: New acetaminophen [Tylenol Extra Strength] 500 mg tablet 500 mg PO Q6H PRN (Reason: fever or pain) Qty: 14 0RF morphine 15 mg tablet 15 mg PO Q6H PRN (Reason: pain (scale score 7-10)) 3 Days Qty: 5 0RF Rx Instructions: Partial Fill upon patient request. naproxen 500 mg tablet 500 mg PO BID PRN (Reason: pain) 10 Days Qty: 20 0RF No Action omeprazole 20 mg Capsule,Delayed Release(Dr/Ec) 20 mg PO BID@0630,1630 Qty: 60 0RF lisinopril 10 mg Tablet 10 mg PO DAILY folic acid 1 mg Tablet 1 mg PO DAILY cefuroxime axetil 500 mg tablet 500 mg PO BID Qty: 10 0RF Referrals: [facility] [place] [facility] [Provider Group] - 1 week Interventions: ED Discharge Assessment Last Done: 06/05/24 09:17 Discharge Date/Time: 06/05/24 09:17 Print Language: Estonian
[2024-06-05 08:38] VITALS: BP 122/67; PULSE 86; RESP 16; TEMP 37.4; O2SAT 95
[2024-06-05 09:17] VITALS: BP 122/67; PULSE 86; RESP 16; TEMP 37.4; O2SAT 95
== END 2024-06-05 09:17 | disposition home or self-care (01) ==
PROVIDERS: Emergency Provider Emergency Medicine
DX: S89.92XA Unspecified injury of left lower leg, initial encounter (principal); M25.562 Pain in left knee; W00.0XXA Fall on same level due to ice and snow, initial encounter; Y93.9 Activity, unspecified; Y92.9 Unspecified place or not applicable; Y99.8 Other external cause status; Z79.899 Other long term (current) drug therapy; Z87.891 Personal history of nicotine dependence
CPT/HCPCS: 73560; 96372; 99284; J1885

== ENCOUNTER → 2024-06-05 04:40 | Outpatient (BNV) | payer OTHER, SELFPAY | PROVIDERS: Visit Provider Radiology Diagnostic Radiology | DX: M25.562 Pain in left knee (principal) | CPT/HCPCS: 73560 ==